=== PATIENT | male | born 1935 | race Caucasian/White ===

== ENCOUNTER 2017-03-18 07:44 | Inpatient (IN) | payer MEDICARE, OTHER ==
[2017-03-18 08:23] LABS: #Monocytes 0.7 thou/uL (0.11-0.59); #Neutrophils 3.1 thou/uL (1.40-6.50); %Eosinophils 0.5 % (0.0-10.0); Hematocrit 30.2 % (42.0-52.0); Red Blood Cell (RBC) Count 3.09 mill/uL (4.70-6.10); White Blood Cell (WBC) Count 5.8 thou/uL (4.8-10.8)
[2017-03-18 08:46] LABS: ALT (SGPT) 12 U/L (8-55); AST (SGOT) 20 U/L (5-34); Alkaline Phosphatase 66 U/L (40-150); Anion Gap 15 mmol/L (10-20); BUN (Urea Nitrogen) 32 mg/dL (8.4-25.7); Bilirubin, Total 0.5 mg/dL (0.2-1.2); CK (CPK) 65 U/L (30-200); Calc. Creatinine Clearance 0 mL/min (70-130); Carbon Dioxide 34 mmol/L (23-31); Chloride 90 mmol/L (98-107); Estimated GFR-MDRD 27; Globulin 3.4 g/dL (2.4-3.5); Protein, Total 7.1 g/dL (5.8-8.1)
[2017-03-18 08:49] LABS: Troponin I 0.041 ng/mL (< 0.028)
--- NOTE | 2017-03-18 09:05 | RAD ---
CHEST 1 VIEW: HISTORY: Dyspnea. Chest pain. COMPARISON: 11/02/16. FINDINGS: Cardiac silhouette is magnified by projection. Pulmonary vasculature is upper limits of normal and accentuated by shallow inspiration. Mediastinum is midline with aortic calcification and a multilea d left subclavian cardiac electronic device. There is no evidence of pneumothorax. media monitor leads overlie the chest. IMPRESSION: 1. Atherosclerosis. 2. Chronic-type findings are stable. POS: SONIA
[2017-03-18 09:32] LABS: Bilirubin Negative (Negative); Blood, Urine Negative (Negative); Glucose, Urine (Dipstick) Negative (Negative); Ketone, Urine 15 mg/dL (Negative); Nitrite Positive (Negative); Protein, Urine (Dipstick) 30 mg/dL (Neg-Trace)
[2017-03-18 09:34] LABS: Bacteria/HPF 2+ HPF (None Seen); Hyaline Casts/LPF 7-10 HYALINE CAST LPF (0-3 Hyaline); Squamous Epithelial None Seen HPF (0-3)
[2017-03-18] MEDS ORDERED: Mag-Al 1200 mg/1200 mg/30 ML UDCUP PO PRN (11:27)
[2017-03-18] MEDS ORDERED: Senokot 8.6 MG TAB PO PRN (11:27)
[2017-03-18] MEDS ORDERED: Dextrose 5% in Water 1,000 ML IV PRN (11:27)
[2017-03-18] MEDS ORDERED: Ondansetron ODT 4 MG TAB PO PRN (11:27)
[2017-03-18] MEDS ORDERED: Dextrose 50% Abboject 50 ML SYRINGE SLOW IVP PRN (11:27)
[2017-03-18] MEDS ORDERED: Sodium Chloride 0.65% Nasal 44 ML BOT EA NARE PRN (11:27)
[2017-03-18] MEDS ORDERED: Acetaminophen 325 MG TAB PO PRN (11:27)
[2017-03-18] MEDS ORDERED: Ondansetron HCl/PF 4 MG/2 ML Vial IVP PRN (11:27)
[2017-03-18] MEDS ORDERED: HumaLOG 300 UNITS/3 ML VIAL SC PRN (11:27)
[2017-03-18] MEDS ORDERED: Loratadine 10 MG TAB PO PRN (11:27)
[2017-03-18] MEDS ORDERED: traZODone HCl 50 MG TAB PO PRN (11:27)
[2017-03-18] MEDS ORDERED: Milk Of Magnesia 30 ML UDCUP PO PRN (11:27)
[2017-03-18] MEDS ORDERED: Nitroglycerin 0.4 MG TAB (25 Tab Bottle) SL PRN (11:27)
[2017-03-18] MEDS ORDERED: Loperamide HCl 2 MG CAP PO PRN (11:27)
[2017-03-18] MEDS ORDERED: Zolpidem Tartrate 5 MG TAB PO PRN (11:27)
[2017-03-18] MEDS ORDERED: Eucerin (Mineral Oil/Petrolatum,White) 30 gm Jar TOP PRN (11:27)
[2017-03-18] MEDS ORDERED: Artificial Tears 18 DROP/0.9 ML EA EYE PRN (11:27)
[2017-03-18] MEDS ORDERED: Diabetic Tussin 200 MG/10 ML UDCUP PO PRN (11:27)
[2017-03-18] MEDS ORDERED: Chloraseptic Spray 180 ml Bottle PO PRN (11:27)
[2017-03-18] MEDS ORDERED: ALPRAZolam 0.5 MG TAB PO PRN (11:27)
[2017-03-18 12:03] LABS: Troponin I 0.035 ng/mL (< 0.028)
--- NOTE | 2017-03-18 12:03 | HP ---
PRIMARY CARE PHYSICIAN: Dr. Moise Estrada. REASON FOR ADMISSION: Acute kidney failure, generalized weakness, urinary tract infection. HISTORY OF PRESENT ILLNESS: An 81-year-old male with a history of hypertension, diabetes type 2, be nign enlargement of prostate, who came to emergency room with his because of generalized weakne ss. He was not feeling good for the last several days. He reports that since stent placed in 10/30 16, he is going downhill. He denies any melena, hematochezia. He reports dysuria and foul smelling urine. He does report increased frequency of urination. This was going on for the last few days. As per the patient's , the patient was also having very poor appetite. He was falling frequent ly. He was feeling dizzy. Today, he came to emergency room with this presentation and he is found with acute kidney failure. His urinalysis was suggestive of urinary tract infection. The patient has received IV Cipro in the emergency room. The patient is being admitted to telemetry floor for close monitoring. REVIEW OF SYSTEMS: The following complete review of systems was negative, unless otherwise mentione d in the HPI or below: Constitutional: Weight loss or gain, ability to conduct usual activities. Skin: Rash, itching. Eyes: Double vision, pain. ENT/Mouth: Nose bleeding, neck stiffness, pain, tenderness. Cardiovascular: Palpitations, dyspnea on exertion, orthopnea. Respiratory: Shortness of breath, wheezing, cough, hemoptysis, fever or night sweats. Gastrointestinal: Poor appetite, abdominal pain, heartburn, nausea, vomiting, constipation, or diar michael. Genitourinary: Urgency, frequency, dysuria, nocturia. Musculoskeletal: Pain, swelling. Neurologic/Psychiatric: Anxiety, depression. Allergy/Immunologic: Skin rash, bleeding tendency. Please see my HPI for pertinent positive and negative. All other review of systems reviewed and neg ative except as mentioned in the HPI. EMERGENCY ROOM COURSE: Patient has received IV fluid 1 liter and Cipro 400 mg. PAST MEDICAL HISTORY: Benign enlargement of prostate, history of aortic valve stenosis required tra nscutaneous aortic valve replacement procedure, coronary artery disease requiring CABG, diabetes typ e 2, hypertension, dyslipidemia, paroxysmal atrial fibrillation. PAST SURGICAL HISTORY: Pacemaker/defibrillator placement, transcutaneous aortic valve replacement, history of colostomy, back surgery, tonsillectomy. PAST PSYCHIATRIC HISTORY: Anxiety and depression. SOCIAL HISTORY: Patient is . He lives at home with his . He is a former smoker. He de nies any alcohol or other illicit drug abuse. FAMILY HISTORY: No strong family history of premature coronary artery disease, stroke or cancer. ALLERGIES: CODEINE SULFATE. CURRENT HOME MEDICATIONS: Plavix 75 mg p.o. daily, Lasix 40 mg p.o. b.i.d., Xanax 0.5 mg p.o. daily , Coreg 3.125 mg twice daily, digoxin 125 mcg p.o. daily, ferrous sulfate 325 mg p.o. twice daily, A maryl 4 mg twice daily, metformin 1 g p.o. daily, Januvia 50 mg daily, Aldactone 12.5 mg twice daily , ranitidine 150 mg twice daily, Ranexa 500 mg 2 tablets twice daily, Flomax 0.4 mg p.o. daily, and trazodone 200 mg p.o. daily. PHYSICAL EXAMINATION: VITAL SIGNS: On arrival, blood pressure 123/76, pulse 87, respiratory rate 19, temperature 98.1, sa turation 97% on room air, weight 83.9 kilograms. GENERAL: Patient is currently weak. No obvious acute distress. HEAD: Normocephalic, atraumatic. EYES: Pupils round and reactive to light. Extraocular muscles intact. ENT: Oropharynx within normal limits. Moist mucous membranes. No oral lesions. No pharyngeal tenisha thema, no exudates. NECK: Supple. Range of motion is normal. No meningeal signs of irritation. LUNGS: Clear to auscultation without any rhonchi or rales. CARDIAC: S1, S2 regular. No murmur, no gallop, no rub. ABDOMEN: Soft, bowel sounds present, nontender, nondistended. No organomegaly, no mass, no suprapu bic tenderness. BACK: Examination unremarkable, no CVA tenderness. EXTREMITIES: Upper extremity passive movements of all joints are normal. Lower extremity, no edema . Good peripheral pulsation. SKIN: No skin rash. HEMATOLOGICAL SYSTEM: No lymphadenopathy. PSYCHIATRIC: Normal affect. NEUROLOGIC: Nonfocal examination. IMAGING AND SIGNIFICANT LABORATORY DATA: 1. EKG based on my review, pacemaker rhythm. Chest x-ray based on my review, chronic changes, no a cute cardiopulmonary process. 2. WBC 5.8, hemoglobin 10.0, platelet 260. BMP: Sodium 135, potassium 4.1, chloride 90, carbon di oxide 34, BUN 32, creatinine 2.32, glucose 91, calcium 11.0. 3. LFT: AST 20, ALT 12, alkaline phosphatase 66, albumin 3.7, CK 65, CK-MB 1.4, troponin I 0.041. BNP 162.0. Urinalysis consistent with urinary tract infection. ASSESSMENT AND PLAN/IMPRESSION: 1. Acute kidney failure. This patient's creatinine today is 2.32. His previous creatinine is 1.07 . Most likely, acute kidney failure is related with prerenal etiology secondary to over diuresis wi th Lasix. At this point, patient will be given gentle IV fluid at 75 mL per hour. We will avoid ne phrotoxic agents and we will repeat basic metabolic panel tomorrow. We are expecting that with IV f luid therapy, his renal function will improve. If renal function does not improve, then we will con pipe and test supervisor nephrology evaluation. 2. Hyponatremia, hypochloremia, and metabolic alkalosis based on the elevated total CK, all explain ed by over diuresis. 3. Elevated troponin. Compared to old records, patient's troponin is coming down. We will do 2 mo re sets of cardiac enzymes to rule out any acute coronary syndrome. 4. Urinary tract infection. We will continue with Rocephin 1 g q.24 hours and Cipro 200 mg IV twic e daily based on renal dose. We will follow up on urine culture result and based on culture result, we will change to oral antibiotic therapy. 5. Diabetes type 2. We will hold on metformin therapy because of kidney failure. We will continue with Amaryl 2 mg p.o. daily and insulin as per sliding scale per protocol. We will watch for any h ypoglycemia. We will also continue Januvia 50 mg p.o. daily. 6. Coronary artery disease with history of stent. We will continue with Plavix 75 mg p.o. daily, C oreg 3.125 mg p.o. twice daily. We will also continue with Ranexa 1 gram p.o. twice daily. 7. Benign enlargement of prostate. We will continue Flomax 0.4 mg p.o. daily and monitor urine out put. We will check for any residual if needed. 8. Anxiety and depression. We will continue Xanax b.i.d. p.r.n. and trazodone 50 mg at bedtime p.r .n. 9. History of abdominal aortic stenosis, status post aortic valve replacement. Currently, problem is stable. We will monitor rhythm on telemetry floor. 10. Anemia, normocytic, normochromic. We will continue ferrous sulfate 325 mg p.o. daily. 11. Deep venous thrombosis prophylaxis, heparin 5000 units subcu twice daily. 12. Gastrointestinal prophylaxis. Pepcid 20 mg p.o. at bedtime. CODE STATUS: The patient is FULL CODE. The patient's is surrogate decision maker. Disposition plan based on clinical course. We are expecting patient's stay in the hospital more oskar n 2 midnights. Plan of care discussed with the patient and the patient's family member at bedside.
[2017-03-18] MEDS: Sodium Chloride 0.9% 1,000 ML IV SCH (12:16)
[2017-03-18] MEDS: Ciprofloxacin Lactate/D5W 200 MG in Premix Bag 1 BAG IVPB SCH (12:17)
[2017-03-18 12:58] VITALS: BMI 28.8
[2017-03-18] MEDS: cefTRIAXone\\ROCEPHIN 1 GM in Sodium Chloride 0.9% 100 ML IVPB SCH (14:12)
[2017-03-18] MEDS: Carvedilol 3.125 MG TAB PO SCH (17:10)
[2017-03-18] MEDS: Heparin 5,000 UNITS/ML VIAL SC SCH (20:36)
[2017-03-18] MEDS ORDERED: FLU VACC TS2017-18 (>65YR) 0.5 ML SYRINGE IM ONE (21:00)
[2017-03-18] MEDS: HumaLOG 300 UNITS/3 ML VIAL SC PRN (21:31)
[2017-03-19] MEDS: Ciprofloxacin Lactate/D5W 200 MG in Premix Bag 1 BAG IVPB SCH (00:09)
[2017-03-19] MEDS: Sodium Chloride 0.9% 1,000 ML IV SCH ×3 (04:58→14:40)
[2017-03-19 05:19] LABS: #Eosinphils 0.1 thou/uL (0.0-0.7); #Lymphocytes 2.2 thou/uL (1.20-3.40); #Monocytes 0.9 thou/uL (0.11-0.59); #Neutrophils 3.6 thou/uL (1.40-6.50); %Basophils 0.3 % (0.0-1.0); %Eosinophils 0.9 % (0.0-10.0); %Lymphocytes 32.7 % (21.0-51.0); %Monocytes 12.8 % (0.0-10.0); Hematocrit 30.7 % (42.0-52.0); Mean Platelet Volume 6.3 fL (7.4-10.4); Red Blood Cell (RBC) Count 3.16 mill/uL (4.70-6.10); White Blood Cell (WBC) Count 6.7 thou/uL (4.8-10.8)
[2017-03-19 05:28] LABS: ALT (SGPT) 16 U/L (8-55); AST (SGOT) 25 U/L (5-34); Alkaline Phosphatase 65 U/L (40-150); Anion Gap 13 mmol/L (10-20); BUN (Urea Nitrogen) 28 mg/dL (8.4-25.7); Bilirubin, Total 0.4 mg/dL (0.2-1.2); Calc. Creatinine Clearance 35 mL/min (70-130); Calcium 10.1 mg/dL (7.8-10.44); Carbon Dioxide 30 mmol/L (23-31); Chloride 93 mmol/L (98-107); Estimated GFR-MDRD 34; Globulin 3.4 g/dL (2.4-3.5); Protein, Total 7.1 g/dL (5.8-8.1)
[2017-03-19 08:18] LABS: Troponin I 0.062 ng/mL (< 0.028)
[2017-03-19] MEDS: Carvedilol 3.125 MG TAB PO SCH ×3 (08:27→20:52)
[2017-03-19] MEDS: Clopidogrel Bisulfate 75 MG TAB PO SCH (08:28)
[2017-03-19] MEDS: Glimepiride 2 MG TAB PO SCH (08:28)
[2017-03-19] MEDS: Digoxin 0.125 MG TAB PO SCH (08:28)
[2017-03-19] MEDS: Ferrous Sulfate 325 MG TAB PO SCH (08:28)
[2017-03-19] MEDS: Alogliptin Benzoate 6.25 MG TABLET PO SCH (08:28)
[2017-03-19] MEDS: Famotidine 20 MG TAB PO SCH (08:29)
[2017-03-19] MEDS: Tamsulosin HCl 0.4 MG CAP PO SCH (08:29)
[2017-03-19] MEDS: Heparin 5,000 UNITS/ML VIAL SC SCH ×2 (08:29→20:52)
[2017-03-19 11:37] LABS: Troponin I 0.054 ng/mL (< 0.028)
[2017-03-19] MEDS: cefTRIAXone\\ROCEPHIN 1 GM in Sodium Chloride 0.9% 100 ML IVPB SCH (12:54)
[2017-03-19] MEDS ORDERED: ALPRAZolam 0.5 MG TAB PO SCH (15:00)
--- NOTE | 2017-03-19 16:50 | ULT ---
BILATERAL RENAL ULTRASOUND: 03/19/17 HISTORY: Renal failure. FINDINGS: The right kidney measures 9.2 cm in length and the left kidney measures 10.6 cm in length. No focal mass or hydronephrosis is seen on either side. There is mild thinning of the right renal co rtex. Cortical echogenicity is otherwise unremarkable. The prevoid bladder volume measures 158 mL. T he urinary bladder grossly unremarkable. IMPRESSION: Mild cortical thinning on the right. POS: MERVIN
[2017-03-19] MEDS ORDERED: Lidocaine 1.5% w/Epi 1:200K 30 ML VIAL (Epid Use) FS SCH (17:30)
--- NOTE | 2017-03-19 19:02 | PDOC.EVN ---
Event Note - Event Note Event Note: PROCEDURE NOTE: Patient given information about the I&D procedure including risks and benefits, all questions answered and patient with understanding. Consent signed. The patient was placed in the right lateral recumbant position and abscess of the L posterior neck exposed. A timeout protocol was performed prior to initiating eth procedure. The area was prepared and draped in the usual, sterile manner. the site was anesthetized with 1.5% lidocaine with epinephrine. A linear incision along the local skin lines was made and the purulent material expressed. The abscess was explored thoroughly and sequestered pockets were opened. Bleeding was minimal. The wound was packed with 1/2" iodoform guaze and dressing was applied.
--- NOTE | 2017-03-19 20:04 | PDOC.PN ---
- Subjective Encounter Start Date: 03/19/17 Encounter Start Time: 12:00 Patient seen and examined. No new complaints. No overnight events. Feels better. - Objective Resuscitation Status: Resuscitation Status FULL:Full Resuscitation MAR Reviewed: Yes Vital Signs & Weight: Vital Signs (12 hours) Temp Pulse Resp BP Pulse Ox 03/19/17 16:26 98.1 F 91 17 125/57 L 98 03/19/17 12:14 97.6 F 87 17 123/58 L 98 03/19/17 08:28 77 03/19/17 08:24 97.9 F 77 16 130/60 95 Weight Admit Weight 184 lb Weight 184 lb 1.6 oz I&O: 03/18/17 03/19/17 03/20/17 06:59 06:59 06:59 Intake Total 1010 1272 Output Total 300 675 Balance 710 597 Result Diagrams: 03/19/17 04:48 03/19/17 04:48 Additional Labs: Accuchecks 03/19/17 03/19/17 03/19/17 16:27 12:15 05:36 POC Glucose 150 H 168 H 152 H 03/18/17 03/18/17 20:01 17:30 POC Glucose 221 H 238 H EKG Reviewed by me: Yes (Tele paced) Phys Exam - Physical Examination Constitutional: NAD Respiratory: no wheezing, no rhonchi Cardiovascular: RRR, no rub Gastrointestinal: soft, non-tender, positive bowel sounds Musculoskeletal: no edema Dx/Plan (1) CLAIRE (acute kidney injury) Code(s): N17.9 - ACUTE KIDNEY FAILURE, UNSPECIFIED Status: Acute (2) UTI (urinary tract infection) Status: Acute (3) Elevated troponin Code(s): R74.8 - ABNORMAL LEVELS OF OTHER SERUM ENZYMES Status: Acute (4) Skin abscess Code(s): L02.91 - CUTANEOUS ABSCESS, UNSPECIFIED Status: Acute Qualifiers: Site of cutaneous abscess: neck Qualified Code(s): L02.11 - Cutaneous abscess of neck (5) PAF (paroxysmal atrial fibrillation) Code(s): I48.0 - PAROXYSMAL ATRIAL FIBRILLATION Status: Chronic (6) DM2 (diabetes mellitus, type 2) Status: Chronic (7) CAD (coronary artery disease) Code(s): I25.10 - ATHSCL HEART DISEASE OF [place] CORONARY ARTERY W/O ANG PCTRS Status: Chronic - Plan cont current plan of care, plan discussed w/ family, DVT proph w/heparin, DVT proph w/SCDs * Renal ultrasound * Add urine culture to ER sample - No cultures sent on admission * AM labs * Cont IVF * Consult Family medicine for I&D of skin abscess * DC Cipro * Cont to monitor Review of Systems - Review of Systems Respiratory: negative: Cough, Dry, Shortness of Breath, Hemoptysis, SOB with Excertion, Pleuritic Pain, Sputum, Wheezing Cardiovascular: Chest Pain (earlier today - resolved). negative: Palpitations, Orthopnea, Paroxysmal Noc. Dyspnea, Edema, Light Headedness, Other Gastrointestinal: negative: Nausea, Vomiting, Abdominal Pain, Diarrhea, Constipation, Melena, Hematochezia, Other - Medications/Allergies Allergies/Adverse Reactions: Allergies Allergy/AdvReac Type Severity Reaction Status Date / Time codeine [Codeine] Allergy Mild Verified 08/25/16 12:45 Medications: Current Medications Acetaminophen (Tylenol) 650 mg PO Q4H PRN PRN Reason: Headache/Fever or Pain Last Admin: 03/19/17 07:17 Dose: 650 mg Al Hydroxide/Mg Hydroxide (Maalox) 30 ml PO Q6H PRN PRN Reason: Heartburn or Indigestion Alogliptin Benzoate (Alogliptin) 6.25 mg PO DAILY [facility] Last Admin: 03/19/17 08:28 Dose: 6.25 mg Alprazolam (Xanax) 0.5 mg PO BID [facility] Amiodarone HCl (Cordarone) 200 mg PO BID [facility] Artificial Tears (Tears Naturale) 0 drop EA EYE PRN PRN PRN Reason: Dry Eyes Carvedilol (Coreg) 3.125 mg PO BID-[facility] Last Admin: 03/19/17 17:50 Dose: 3.125 mg Carvedilol (Coreg) 3.125 mg PO BID [facility] Clopidogrel Bisulfate (Plavix) 75 mg PO DAILY [facility] Last Admin: 03/19/17 08:28 Dose: 75 mg Dextrose/Water (Dextrose 50%) 25 gm SLOW IVP PRN PRN PRN Reason: Hypoglycemia Digoxin (Lanoxin) 0.125 mg PO DAILY [facility] Last Admin: 03/19/17 08:28 Dose: 0.125 mg Famotidine (Pepcid) 20 mg PO DAILY [facility] Last Admin: 03/19/17 08:29 Dose: 20 mg Ferrous Sulfate (Feosol) 325 mg PO [facility] Last Admin: 03/19/17 08:28 Dose: 325 mg Glimepiride (Amaryl) 2 mg PO QA-[facility] Last Admin: 03/19/17 08:28 Dose: 2 mg Glucagon (Glucagon) 1 mg IM PRN PRN PRN Reason: Hypoglycemia Guaifenesin (Robitussin Sf) 200 mg PO Q4H PRN PRN Reason: Cough Heparin Sodium (Porcine) (Heparin) 5,000 units SC BID [facility] Last Admin: 03/19/17 08:29 Dose: 5,000 units Hydralazine HCl (Apresoline) 10 mg SLOW IVP Q4H PRN PRN Reason: Systolic BP > 180 Dextrose/Water (D5w) 1,000 mls @ 0 mls/hr IV .Q0M PRN; As Directed PRN Reason: Hypoglycemia Ceftriaxone Sodium 1 gm/ (Sodium Chloride) 100 mls @ 200 mls/hr IVPB Q24HR [facility] Last Admin: 03/19/17 12:54 Dose: 100 mls Sodium Chloride (Normal Saline 0.9%) 1,000 mls @ 50 mls/hr IV .Q20H [facility] Last Admin: 03/19/17 14:40 Dose: 1,000 mls Insulin Human Lispro (Humalog) 0 units SC .MODERATE SLIDING SC PRN PRN Reason: Moderate Correctional Scale Last Admin: 03/18/17 18:41 Dose: 4 unit Insulin Human Lispro (Humalog) 0 units SC .BEDTIME SLIDING SC PRN PRN Reason: Bedtime Correctional Scale Last Admin: 03/18/17 21:31 Dose: 2 unit Loperamide HCl (Imodium) 2 mg PO PRN PRN PRN Reason: Diarrhea/Loose Stools Loratadine (Claritin) 10 mg PO DAILYPRN PRN PRN Reason: Sinus Symptoms Magnesium Hydroxide (Milk Of Magnesium) 30 ml PO DAILYPRN PRN PRN Reason: Constipation Mineral Oil/White Petrolatum (Eucerin Cream) 0 gm TOP BIDPRN PRN PRN Reason: Dry Skin Nitroglycerin (Nitrostat) 0.4 mg SL Q5MIN PRN PRN Reason: Chest Pain Last Admin: 03/19/17 07:14 Dose: 0.4 mg Ondansetron HCl (Zofran Odt) 4 mg PO Q6H PRN PRN Reason: Nausea/Vomiting Ondansetron HCl (Zofran) 4 mg IVP Q6H PRN PRN Reason: Nausea/Vomiting Phenol (Chloraseptic [place] 180 Ml Bot) 0 ml PO PRN PRN PRN Reason: Sore Throat Ranolazine (Ranexa) 1,000 mg PO BID [facility] Last Admin: 03/19/17 08:29 Dose: 1,000 mg Rosuvastatin Calcium (Crestor) 10 mg PO HS [facility] Senna (Senokot) 2 tab PO HSPRN PRN PRN Reason: Constipation Sodium Chloride ([place] Nasal [place] 0.65%) 0 ml EA NARE QIDPRN PRN PRN Reason: Nasal Congestion Sodium Chloride (Flush - Normal Saline) 10 ml IVF Q12HR [facility] Last Admin: 03/19/17 08:30 Dose: Not Given Sodium Chloride (Flush - Normal Saline) 10 ml IVF PRN PRN PRN Reason: Saline Flush Tamsulosin HCl (Flomax) 0.4 mg PO DAILY [facility] Last Admin: 03/19/17 08:29 Dose: 0.4 mg Tamsulosin HCl (Flomax) 0.4 mg PO HS [facility] Trazodone HCl (Desyrel) 200 mg PO HS [facility]
[2017-03-19] MEDS: ALPRAZolam 0.5 MG TAB PO SCH (20:51)
[2017-03-19] MEDS ORDERED: traZODone HCl 50 MG TAB PO SCH (21:00)
[2017-03-19] MEDS ORDERED: Tamsulosin HCl 0.4 MG CAP PO SCH (21:00)
[2017-03-19] MEDS: HumaLOG 300 UNITS/3 ML VIAL SC PRN (21:03)
--- NOTE | 2017-03-19 22:41 | CON-2 ---
DATE OF CONSULTATION: 03/19/2017 CODE STATUS: FULL. PRIMARY CARE PHYSICIAN: Moise Estrada MD ATTENDING: Cyndi Felipe M.D. RESIDENT: Chi Hernandez MD HISTORIAN: Patient. PRIMARY TEAM: [facility]. REASON FOR CONSULTATION: Requested I and D of neck cyst. HISTORY OF PRESENT ILLNESS: The patient is an 81-year-old male with past medical history of aortic stenosis status post TAVR, hypertension, and diabetes type 2, who presented to the hospital with UTI. [facility] This afternoon, the patient was noted to have a cyst on the back of his neck that was draining purulent material. [facility] and drainage of the cyst of what looks like an inclusion cyst on the back of his neck. This cyst has been present for the last 2-3 months. It was attempted to be popped yesterday, but became more inflamed and tender. It started draining a small amount of pus today, but it was felt he would benefit more from an incision and drainage. The patient has been afebrile. He is currently on antibiotics for urinary tract infection. He has a history of inclusion cysts. PAST MEDICAL HISTORY: 1. Aortic stenosis, status post TAVR. 2. Benign prostatic hypertrophy. 3. Paroxysmal atrial fibrillation. 4. Hypertension. 5. Diabetes mellitus 2. 6. Hyperlipidemia. 7. Coronary artery disease status post CABG procedure. PAST SURGICAL HISTORY: 1. TAVR. 2. Colostomy. 3. Back surgery. 4. Pacer/defibrillator. 5. Tonsillectomy. ALLERGIES: CODEINE. MEDICATIONS: 1. Plavix 75 mg p.o. a day. 2. Lasix 40 mg b.i.d. 3. Xanax 0.5 mg a day. 4. Coreg 3.125 mg b.i.d. 5. Digoxin 125 mcg a day. 6. Ferrous sulfate 325 mg b.i.d. 7. Amaryl 4 mg b.i.d. 8. Metformin 1 gram a day. 9. Januvia 50 mg. 10. Aldactone 12.5 mg b.i.d. 11. Ranitidine 150 mg b.i.d. 12. Ranexa 500 mg 2 tablets b.id. 13. Flomax 0.4 mg. 14. Trazodone 200 mg. FAMILY HISTORY: Noncontributory. SOCIAL HISTORY: The patient is a former smoker. He denies any alcohol or other drug use. REVIEW OF SYSTEMS: General: Denies fever, chills, denies appetite changes. Respiratory: No cough , no shortness of breath. Cardiovascular: No chest pain, no palpitations. Gastrointestinal: No nausea or vomiting, no diarrhea. Genitourinary: Endorses dysuria. Denies discharge. Skin: Endorses lesions, denies itching. PHYSICAL EXAMINATION: VITAL SIGNS: Blood pressure 125/57, pulse 91, respiratory rate 17, T-max 98.1, pulse oximetry 98% on room air. Current weight 83.5 kilograms. GENERAL: Alert, oriented x4. NAD. Well-developed, appropriately interactive. NECK: Supple. No lymphadenopathy. CARDIOVASCULAR: Regular rate and rhythm, no murmur, no gallops. RESPIRATORY: Normal effort, no retractions. Clear to auscultation bilaterally. SKIN: An 1.5 cm epidermoid inclusion cyst with overlying erythema and small drainage from central lesion; tender to palpation. PSYCHIATRIC: Appropriate. LABORATORY: CBC: WBC 6.7, hemoglobin 10.1, hematocrit 30.7, platelets 271. CMP: Sodium 132, potassium 3.6, chloride 93, CO2 of 30, BUN 28, creatinine 1.93 , glucose 134, calcium 10.1, AST 25, ALT 16, total bilirubin 0.4, alkaline phosphatase 65, total protein 7.1, albumin 3.7. IMAGING: Renal ultrasound showed mild cortical thinning on the right. ASSESSMENT AND PLAN: 1. Epidermoid inclusion cyst, plan for bedside incision and drainage. We will check wound culture if drainage appears grossly purulent. The patient is afebrile, will likely be unable to remove the capsule due to acute inflammation. No antibiotics necessary. Patient is on antibiotics for urinary tract infection currently. Plan to re-evaluate wound in AM then sign off if stable. 2. Urinary tract infection. Defer treatment to primary team. 3. Acute kidney infection. Defer to primary team. 4. Paroxysmal atrial fibrillation. Defer to primary team. 5. Diabetes mellitus 2. Defer to primary team. This consultation note and management was discussed with Dr. Felipe. MOHAMUD
[2017-03-20 05:48] LABS: Band 1 % (5-11); Hematocrit 28.6 % (42.0-52.0); Mean Platelet Volume 6.8 fL (7.4-10.4); Neutrophil 68 % (42-75); Red Blood Cell (RBC) Count 2.89 mill/uL (4.70-6.10); White Blood Cell (WBC) Count 4.8 thou/uL (4.8-10.8)
[2017-03-20 05:59] LABS: Anion Gap 10 mmol/L (10-20); BUN (Urea Nitrogen) 18 mg/dL (8.4-25.7); BUN/Creatinine Ratio 12.16; Calc. Creatinine Clearance 47 mL/min (70-130); Calcium 9.4 mg/dL (7.8-10.44); Carbon Dioxide 30 mmol/L (23-31); Chloride 101 mmol/L (98-107); Estimated GFR-MDRD 46; Magnesium 2.3 mg/dL (1.6-2.6); Phosphorus 3.1 mg/dL (2.3-4.7)
[2017-03-20 06:01] LABS: Digoxin 0.88 ng/mL (0.8-2.0)
[2017-03-20] MEDS: Carvedilol 3.125 MG TAB PO SCH ×2 (08:17→08:20)
[2017-03-20] MEDS: Ferrous Sulfate 325 MG TAB PO SCH (08:18)
[2017-03-20] MEDS: Glimepiride 2 MG TAB PO SCH (08:18)
[2017-03-20] MEDS: Alogliptin Benzoate 6.25 MG TABLET PO SCH (08:18)
[2017-03-20] MEDS: ALPRAZolam 0.5 MG TAB PO SCH (08:19)
[2017-03-20] MEDS: Heparin 5,000 UNITS/ML VIAL SC SCH (08:20)
[2017-03-20] MEDS: Digoxin 0.125 MG TAB PO SCH (08:20)
[2017-03-20] MEDS: Clopidogrel Bisulfate 75 MG TAB PO SCH (08:20)
[2017-03-20] MEDS: Famotidine 20 MG TAB PO SCH (08:20)
[2017-03-20] MEDS: Tamsulosin HCl 0.4 MG CAP PO SCH (08:21)
[2017-03-20] MEDS: Sodium Chloride 0.9% 1,000 ML IV SCH (08:27)
--- NOTE | 2017-03-20 11:00 | PDOC.EVN ---
Event Note - Event Note Event Note: Patient doing well this morning. Wound s/p I&D healing well. Will re-pack today. Pt will need close outpatient follow-up to further evaluate wound. <Jessie Oh - Last Filed: 03/20/17 10:59> Attending Addendum - Attending Addendum I personally evaluated the patient and discussed the management with Dr. Oh. I agree with the History, Examination, Assessment and Plan documented above with any addition or exceptions noted below. Wound looks better. Packing has come out with dressing change. When wound was manipulated, some more pus came out, so will clean and repack the wound. He will be discharged today, so will need to follow-up with his PCP for further wound care. <Cyndi Felipe - Last Filed: 03/20/17 14:05>
[2017-03-20 12:17] VITALS: BP 99/55; TEMP 97.5
--- NOTE | 2017-03-20 12:30 | DIS ---
DATE OF ADMISSION: 03/18/2017 DATE OF DISCHARGE: 03/20/2017 DISCHARGE DIAGNOSES: 1. Acute kidney injury on chronic kidney disease stage 2-3, improved. 2. Dehydration secondary to hypovolemia and iatrogenic effects from diuretic use. 3. Urinary tract infection, organism not identified. 4. Generalized weakness secondary to #1 and #2. 5. Polypharmacy. 6. Diabetes mellitus type 2, on oral hypoglycemics. 7. Chronic macrocytic anemia, stable. 8. Coronary artery disease, chronic and stable. 9. Status post transcutaneous aortic valve replacement. 10. Status post incision and drainage of an epidermal inclusion cyst of the neck. CONSULTATION: [facility]. PERTINENT LABORATORY DATA AND X-RAY FINDINGS: Creatinine ranged between 1.48-2.32 with estimated GF R ranging between 27-46, troponin I ranged between 0.035-0.062. BNP 162. CBC showed hemoglobin ran ged between 9.4-10.1. Digoxin level 0.88. Bacterial culture from neck wound dated 03/19/2017 showe d no growth at 12 hours. Portable chest x-ray dated 03/18/2017 showed no acute cardiopulmonary proc ess. HOSPITAL COURSE: Patient was admitted to the telemetry unit after initially presenting with general ized weakness with evidence of urinary tract infection by urinalysis. The patient was placed on Mao ephin 1 gram q.24 hours; however, final urine culture pending at time of this dictation. The naveed t was given gentle IV fluid hydration after associated elevated creatinine above baseline was noted. The patient received gentle IV fluid hydration with overall improvement in creatinine and estimate d GFR by the time of discharge. The patient continued to clinically improve with discontinuation of diuretic therapy, IV hydration and encouragement of free water intake orally. The patient was disc ontinued on multiple medications, renally cleared due to the renal failure with adjustments to Lasix to 40 mg daily after discharge. The patient also underwent evaluation for a small suspected absces s on the left neck; however, bacterial culture of the wound showed no evidence of organisms or bacte rial growth and consistent with an epidermal inclusion cyst. The patient received local wound care after incision and drainage with care instructions given to the family on discharge. Overall, caden gamino remained clinically stable and ready for discharge on 03/20/2015. DISCHARGE MEDICATIONS: 1. Omnicef 300 mg 1 tablet p.o. b.i.d. x5 days. 2. Xanax 0.5 mg p.o. t.i.d. p.r.n. 3. Amiodarone 200 mg p.o. b.i.d. 4. Calcium carbonate 800 mg p.o. b.i.d. 5. Coreg 3.125 mg p.o. b.i.d. 6. Plavix 75 mg 1 tablet p.o. daily. 7. Digoxin 0.125 mg p.o. daily. 8. Feosol 325 mg p.o. b.i.d. 9. Lasix 40 mg p.o. daily, may resume on 03/25/2017. 10. Amaryl 4 mg p.o. b.i.d. 11. Multivitamin 1 tablet p.o. daily. 12. Ranexa 1000 mg p.o. b.i.d. 13. Crestor 10 mg p.o. at bedtime. 14. Aldactone 12.5 mg p.o. b.i.d., may resume on 03/23/2017. 15. Flomax 0.4 mg p.o. daily. 16. Vitamin B complex 1 tablet p.o. daily. 17. Zantac 150 mg p.o. daily. 18. Metformin 1000 mg p.o. daily, may resume on 03/23/2017. 19. Januvia 50 mg 1 tablet p.o. daily. 20. Trazodone 200 mg p.o. at bedtime. FOLLOWUP: The patient may follow up with his primary care provider, Dr. Moise Estrada within 7 days o f discharge. CONDITION ON DISCHARGE: Fair. ACTIVITY: Ad ezequiel. DIET: Heart healthy and ADA. CODE STATUS: FULL. DISPOSITION: Home 03/20/2017. Total time in preparing and coordinating discharge is 32 minutes.
== END 2017-03-20 12:39 | disposition home or self-care (01) | DRG 683 ==
LOC: ERS 07:44 → 2NO 10:29
PROVIDERS: ADMIT Internal Medicine; ATTEND Internal Medicine
PROC: 0H94XZZ Drainage of Neck Skin, External Approach (ICD-10-PCS; principal; 2017-03-20)
DX: N17.9 Acute kidney failure, unspecified (principal); N39.0 Urinary tract infection, site not specified; E87.3 Alkalosis; E11.22 Type 2 diabetes mellitus with diabetic chronic kidney disease; E87.1 Hypo-osmolality and hyponatremia; E87.8 Other disorders of electrolyte and fluid balance, not elsewhere classified; D53.9 Nutritional anemia, unspecified; F32.9 Major depressive disorder, single episode, unspecified; I48.91 Unspecified atrial fibrillation; I35.0 Nonrheumatic aortic (valve) stenosis; N40.0 Benign prostatic hyperplasia without lower urinary tract symptoms; E78.5 Hyperlipidemia, unspecified; I25.10 Atherosclerotic heart disease of native coronary artery without angina pectoris; Z95.1 Presence of aortocoronary bypass graft; L72.0 Epidermal cyst; Z87.891 Personal history of nicotine dependence; F41.9 Anxiety disorder, unspecified; N18.3 Chronic kidney disease, stage 3 (moderate)
CPT/HCPCS: 36415; 36416; 71010; 76770; 80053; 80069; 80162; 81003; 81015; 82553; 83735; 83880; 84484; 85025; 87070; 87077; 87086; 87186; 87205; 90471; 90682; 93005; A4216; G0008; G8978-GP-CJ; G8979-GP-CI; J0696; J0744; J1644; J7050; Q2036

== ENCOUNTER 2017-03-29 13:33 | Inpatient (IN) | payer MEDICARE, OTHER ==
[2017-03-29 14:26] LABS: Bilirubin Negative (Negative); Blood, Urine Negative (Negative); Glucose, Urine (Dipstick) Negative (Negative); Ketone, Urine Negative (Negative); Nitrite Negative (Negative); Protein, Urine (Dipstick) 100 mg/dL (Neg-Trace); Urobilinogen 0.2 mg/dL (0.2-1.0)
[2017-03-29 14:28] LABS: Hyaline Casts/LPF 0-3 HYALINE CAST LPF (0-3 Hyaline); Squamous Epithelial 0-3 HPF (0-3); WBC/HPF 0-3 HPF (0-3)
[2017-03-29 14:46] LABS: Bacteria/HPF 1+ HPF (None Seen); RBC/HPF 0-3 HPF (0-3)
--- NOTE | 2017-03-29 15:12 | RAD ---
PORTABLE AP CHEST: Date: 03-29-17 History: Orthostatic hypotension. Comparison: 03-18-17 FINDINGS: A triple lead left subclavian AICD device remains in place. Cardiac silhouette and pulmonary vascula ture are within normal limits. Minimal prominent interstitial densities at each lung base have impro jayce. Lungs appear clear on today's exam. There has been no other change from prior exam. IMPRESSION: 1. No acute cardiopulmonary process. 2. Atherosclerotic vascular calcifications. POS: [facility]
[2017-03-29 15:45] LABS: #Lymphocytes 1.3 thou/uL (1.20-3.40); #Monocytes 0.6 thou/uL (0.11-0.59); #Neutrophils 4.7 thou/uL (1.40-6.50); %Basophils 0.3 % (0.0-1.0); %Eosinophils 0.3 % (0.0-10.0); %Monocytes 8.3 % (0.0-10.0); Hematocrit 27.8 % (42.0-52.0); Mean Platelet Volume 6.1 fL (7.4-10.4); Red Blood Cell (RBC) Count 2.81 mill/uL (4.70-6.10); White Blood Cell (WBC) Count 6.7 thou/uL (4.8-10.8)
--- NOTE | 2017-03-29 16:06 | CT ---
CT HEAD WITHOUT CONTRAST: Technique: Multiple axial tomograms were obtained through the head without IV enhancement. History: Head injury. Comparison: 05-05-10 FINDINGS: There is cortical atrophy. Moderate chronic ischemic white matter change. No evidence of intracrania l hemorrhage. No evidence of mass. No evidence of acute infarct. IMPRESSION: Cortical atrophy. Moderate to severe chronic ischemic white matter change. POS: [facility]
--- NOTE | 2017-03-29 16:07 | CT ---
CT CERVICAL SPINE: 03/29/17 Multiple axial tomograms obtained through the cervical spine with multiplanar reconstruction. HISTORY: Multiple falls with injury to neck. There are degenerative changes in the cervical spine. Loss of disc space throughout the cervical spi ne. Osteophytes from the cervical vertebrae. Alignment is preserved. No evidence of acute fracture. Posterior spondylitic changes at C3-4 are prominent and there is left foraminal stenosis at C3-4. IMPRESSION: Degenerative changes of cervical spine. No evidence of acute fracture. POS: [facility]
[2017-03-29 16:09] LABS: ALT (SGPT) 12 U/L (8-55); AST (SGOT) 20 U/L (5-34); Alkaline Phosphatase 63 U/L (40-150); Anion Gap 17 mmol/L (10-20); BUN (Urea Nitrogen) 23 mg/dL (8.4-25.7); Bilirubin, Total 0.5 mg/dL (0.2-1.2); CK (CPK) 89 U/L (30-200); Calc. Creatinine Clearance 0 mL/min (70-130); Calcium 10.2 mg/dL (7.8-10.44); Carbon Dioxide 29 mmol/L (23-31); Chloride 92 mmol/L (98-107); Estimated GFR-MDRD 30; Globulin 3.4 g/dL (2.4-3.5); Lipase 28 U/L (8-78)
[2017-03-29 16:13] LABS: Troponin I 0.023 ng/mL (< 0.028)
--- NOTE | 2017-03-29 16:23 | RAD ---
RIGHT TIBIA AND FIBULA: History: Fall with injury to right lower extremity. FINDINGS: Mild degenerative change at the knee. No acute fracture identified. The distal tibia and fibula are not adequately imaged on this study. IMPRESSION: No acute fracture. Distal tibia and fibula are not imaged on the lateral view. POS: [facility]
--- NOTE | 2017-03-29 16:25 | RAD ---
THREE VIEWS RIGHT FOOT: Date: 03-29-17 History: Right foot injury. Multiple falls due to hypotension. FINDINGS: There is a transverse fracture of the medial malleolus with 4 mm separation of the fracture fragment s. There is also an obliquely oriented fracture involving the distal fibula with approximately 3 mm of separation of the fracture fragments. Lisfranc joint appears normally aligned. No additional frac ture or dislocation is seen involving the right foot. Vascular calcifications are seen at the ankle and dorsal to the foot. IMPRESSION: fractures involving the medial and lateral malleoli. POS: [facility]
--- NOTE | 2017-03-29 16:26 | RAD ---
RIGHT KNEE FOUR VIEWS: History: Fall with injury to right lower extremity. FINDINGS: There are mild degenerative changes at the knee. Arterial calcification. No fracture. No joint effus ion. IMPRESSION: No acute osseous abnormality. POS: [facility]
--- NOTE | 2017-03-29 16:28 | RAD ---
FOUR VIEWS LEFT KNEE: Date: 03-29-17 History: Left knee injury after multiple falls. Comparison: 04-12-10 FINDINGS: Bony osteophytes are seen about the knee. No fracture or dislocation is appreciated. Artifact overli es the knee. Vascular calcifications are seen posterior to the knee. IMPRESSION: 1. Minimal osteoarthritis, but no fracture or dislocation is seen involving the left knee. There has been no significant interval change from prior exam. 2. Vascular calcifications posterior to the knee. POS: [facility]
[2017-03-29] MEDS ORDERED: Ondansetron HCl/PF 4 MG/2 ML Vial IVP PRN (19:57)
[2017-03-29] MEDS ORDERED: Ondansetron ODT 4 MG TAB SL PRN (19:57)
[2017-03-29] MEDS ORDERED: Sodium Chloride 0.9% 1,000 ML IV SCH (19:57)
[2017-03-29 20:12] VITALS: BMI 29.9
[2017-03-29] MEDS: Sodium Chloride 0.9% 1,000 ML IV SCH (21:45)
--- NOTE | 2017-03-29 21:56 | PDOC.EVN ---
Event Note - Event Note Event Note: [id number] H&P Dictated 1.Syncope 2. Rt ankle fracture 3. Hypotension 4. CLAIRE + CKD stage 3 5. H/O CAD Plan: see orders
[2017-03-29] MEDS ORDERED: Morphine 2 MG/ML SYRINGE SLOW IVP PRN (21:58)
[2017-03-29] MEDS ORDERED: HYDROcodone/Acetaminophen 5/325 mg Tablet PO PRN (21:58)
--- NOTE | 2017-03-29 22:10 | RAD ---
RIGHT ANKLE THREE VIEWS: 03/29/17 HISTORY: Ankle fracture. FINDINGS/IMPRESSION: There is interval reduction of the medial and lateral malleolar fractures since the foot x-ray of 3: 53 p.m. from the same day. There is mild residual displacement of the lateral malleolus. A cast has been placed. There is widening of the medial tibiotalar space. POS: [facility]
[2017-03-29 23:30] LABS: Troponin I 0.035 ng/mL (< 0.028)
[2017-03-30] MEDS: Levothyroxine Sodium 50 MCG TAB PO SCH (05:53)
[2017-03-30 06:04] LABS: #Eosinphils 0.1 thou/uL (0.0-0.7); #Lymphocytes 1.1 thou/uL (1.20-3.40); #Monocytes 0.8 thou/uL (0.11-0.59); #Neutrophils 3.6 thou/uL (1.40-6.50); %Basophils 0.4 % (0.0-1.0); %Eosinophils 0.9 % (0.0-10.0); %Lymphocytes 19.9 % (21.0-51.0); %Monocytes 13.9 % (0.0-10.0); Hematocrit 24.1 % (42.0-52.0); Mean Platelet Volume 6.3 fL (7.4-10.4); Red Blood Cell (RBC) Count 2.44 mill/uL (4.70-6.10); White Blood Cell (WBC) Count 5.5 thou/uL (4.8-10.8)
--- NOTE | 2017-03-30 06:26 | HP ---
DATE OF ADMISSION: 03/29/2017 CHIEF COMPLAINT: Syncope, fall. HISTORY OF PRESENT ILLNESS: Patient is an 81-year-old male with the past medical history of hypertension, hyperlipidemia, coronary artery disease, history of myocardial infarction with ejection fraction of 45% to 50%, and aortic valve replacement, came to the ER because of the fall. Patient said that he woke up this morning around 2:00, when he tried to walk, he fell down on the ground, he did hit his head and hit his shoulders and neck and then the leg also, he sat down and then he was unable to walk, having severe pain, patient does not know what happened, he could not able to get up, so EMS was called, and EMS brought the patient to the hospital, and upon ER arrival, the patient was found to be hypotensive, so patient was given fluid bolus and admitted to the ICU. Patient denies any chest pain, denies any trouble breathing, denies any dizziness. Patient did complain of some chest pain when he had a fall. Chest pain is substernal, pressure kind of pain, pain improved with the sublingual nitroglycerin given by the Paramedics. Denies any fever, denies any chills, denies any cough, denies sputum production. PAST MEDICAL HISTORY: As per HPI. PAST SURGICAL HISTORY: Pacemaker, angioplasty, aortic valve replacement, stents. SOCIAL HISTORY: Denies smoking, denies alcohol, denies any drugs. FAMILY HISTORY: Positive for heart problems. REVIEW OF SYSTEMS: Constitutional: Denies any fever, denies any chills. Eyes : Denies any vision problems. Ears: Denies any hearing loss. Neck: Denies any neck pain. Cardiovascular System: Positive for chest pain: Respiratory System: Denies any cough, denies any sputum production. Gastrointestinal System: Denies nausea, vomiting. Musculoskeletal: Positive for right ankle pain. Cranial Nerve System: Positive for syncope. Psychiatric System: No anxiety. Integumentary: Denies any rash. All other review of systems are reviewed and are negative. PHYSICAL EXAMINATION: CONSTITUTIONAL/VITAL SIGNS: At the time of H and P performed, blood pressure is 104/48, pulse oximetry 100%, heart rate 90. GENERAL APPEARANCE: The patient appears tired. HEENT: Anterior patent. Hearing normal. INTEGUMENTARY: Positive for ecchymosis seen. NECK: Supple. No JVD. CARDIOVASCULAR: S1 and S2 present. Positive for murmurs. No rubs, no gallops. RESPIRATORY System: No wheezing, no rhonchi. Diminished at the bases. No wheezing, occasional crackles heard. GASTROINTESTINAL: Soft, nontender, no guarding, no organomegaly, no masses felt. MUSCULOSKELETAL: Right leg lower extremity, decreased range of motion. Positive for dressing. CRANIAL NERVE SYSTEM: Awake, follows commands. Speech clear. PSYCHIATRIC: Mood is appropriate at this time. GENITOURINARY: No suprapubic tenderness. tenderness. LABORATORY DATA AND IMAGING: X-rays of the ankle showed positive for lateral and medial malleolus fracture and dislocation. CT of the head, no acute bleed seen. Chest x-ray no obvious infiltrates seen. Labs showed white count of 6.7 , hemoglobin 9.4, platelet count is 250. BMP showed sodium 134, potassium 3.5, chloride 92, CO2 is 29, BUN of 23, creatinine 2.12, baseline creatinine is around 1.5, calcium 10.2, troponin is 0.023, TSH is 73. ASSESSMENT AND PLAN: Patient is an 81-year-old male. 1. Syncope, etiology unclear. Plan to check cardiac enzymes. Plan to consult Cardiology to evaluate the patient. Plan to check carotid ultrasound. 2. Chest pain. Monitor serial cardiac enzymes. We will place the patient on telemetry and we will wait for Cardiology input. 3. Elevated hypothyroidism. Plan to check free T3, free T4. Plan to start patient on Synthroid at 50 mcg p.o. daily. We will monitor TSH level closely. Need to follow up as an outpatient. 4. History of hypertension. Hold blood pressure medications. 5. Acute kidney injury based on creatinine on 1.4, plus chronic kidney disease , stage 3. Plan to start patient on IV fluids, monitor creatinine closely. Repeat BMP in a.m. Acute kidney injury might be due to hypotension. 6. H/O coronary artery disease. Continue home medications. 7. h/o hpl: Continue statin. The case was discussed in detail with the patient. Patient is FULL CODE. MTDD
[2017-03-30] MEDS ORDERED: Dextrose 50% Abboject 50 ML SYRINGE IVP PRN (06:32)
[2017-03-30] MEDS ORDERED: Dextrose 5% in Water 1,000 ML IV PRN (06:32)
[2017-03-30 06:40] LABS: Anion Gap 10 mmol/L (10-20); BUN (Urea Nitrogen) 22 mg/dL (8.4-25.7); Calc. Creatinine Clearance 39 mL/min (70-130); Calcium 9.9 mg/dL (7.8-10.44); Carbon Dioxide 31 mmol/L (23-31); Chloride 97 mmol/L (98-107); Estimated GFR-MDRD 35
[2017-03-30 06:53] LABS: Troponin I 0.057 ng/mL (< 0.028)
--- NOTE | 2017-03-30 07:39 | PDOC.PN ---
- Subjective Encounter Start Date: 03/30/17 Encounter Start Time: 07:37 Mr. Ramsay does not have any complaints. He had some pain in his foot last night, but now it is fine. He denies chest pain or dyspnea. - Objective MAR Reviewed: Yes Vital Signs & Weight: Vital Signs (12 hours) Temp Pulse Resp BP BP Pulse Ox 03/30/17 04:00 98.6 F 82 18 130/56 L 98 03/30/17 02:00 80 18 96/41 L 97 03/30/17 00:00 80 18 96/37 L 97 03/29/17 23:30 98.5 F 80 18 104/41 L 98 03/29/17 20:30 98.1 F 91 20 98 03/29/17 19:51 98.1 F 91 20 107/51 L 100 Weight Weight 193 lb 1.6 oz I&O: 03/29/17 03/30/17 03/31/17 06:59 06:59 06:59 Intake Total 1290 Output Total 575 Balance 715 Result Diagrams: 03/30/17 04:54 03/30/17 04:54 Additional Labs: Accuchecks 03/30/17 03/29/17 05:43 21:12 POC Glucose 251 H 98 Phys Exam - Physical Examination HEENT: PERRLA Respiratory: no wheezing, no rales, no rhonchi, clear to auscultation bilateral Cardiovascular: RRR, no significant murmur Gastrointestinal: soft, non-tender, positive bowel sounds Musculoskeletal: no edema Dx/Plan (1) Fracture of malleolus, right ankle, closed Code(s): S82.891A - OTH FRACTURE OF RIGHT LOWER LEG, INIT FOR CLOS FX Status: Acute (2) CLAIRE (acute kidney injury) Code(s): N17.9 - ACUTE KIDNEY FAILURE, UNSPECIFIED Status: Acute (3) Elevated troponin Code(s): R74.8 - ABNORMAL LEVELS OF OTHER SERUM ENZYMES Status: Acute (4) CAD (coronary artery disease) Code(s): I25.10 - ATHSCL HEART DISEASE OF [place] CORONARY ARTERY W/O ANG PCTRS Status: Chronic (5) DM2 (diabetes mellitus, type 2) Status: Chronic (6) PAF (paroxysmal atrial fibrillation) Code(s): I48.0 - PAROXYSMAL ATRIAL FIBRILLATION Status: Chronic - Plan * Right Malleolus fracture s/p fall. Patient does not remember how he fell. He says every since his aortic valve surgery he has " been going down". * Plan is for Orthopedic evaluation today * Acute kidney injury- likely from pre-renal azotemia- continue IV hydration * Hypotension- suspect from volume depletion- continue hydration * Presyncope- possibly from volume depletion as well ( patient has had elevated troponins in the past )- however will follow-up with Cardiology evalution * DM- continue SSI * PAF- heart rate- AV- paced- stable.
[2017-03-30] MEDS ORDERED: Potassium Chloride 40 MEQ in Sodium Chloride 0.9% 250 ML 250 ML IVPB SCH (07:45)
[2017-03-30] MEDS: Famotidine 20 MG TAB PO SCH (09:07)
[2017-03-30] MEDS: Digoxin 0.125 MG TAB PO SCH (09:07)
[2017-03-30] MEDS: Tamsulosin HCl 0.4 MG CAP PO SCH (09:07)
[2017-03-30] MEDS: Ferrous Sulfate 325 MG TAB PO SCH ×2 (09:08→15:58)
[2017-03-30] MEDS: Clopidogrel Bisulfate 75 MG TAB PO SCH (09:08)
--- NOTE | 2017-03-30 10:26 | CON ---
DATE OF CONSULTATION: 03/29/2017 CHIEF COMPLAINT: Right ankle pain. HISTORY OF PRESENT ILLNESS: Mr. Ramsay is an 81-year-old male who has had several episodes of syncope recently. He had become dizzy and fallen several times. He fell 2 nights ago rolling his ankle. He was unable to ambulate. His pain worsened. He presented to the hospital yesterday for evaluatio n. A bimalleolar ankle fracture was identified. He has been admitted to the hospital for syncope w orkup at this point. He is currently having acceptable pain control. He has been splinted. He is awaiting a Cardiology consult. He does have an extensive cardiac history of angioplasty and aortic valve replacement. He has had previous stents. He denies being on blood thinner currently, but he is unsure of his medications. PAST MEDICAL HISTORY: Cardiac disease including coronary artery disease, history of myocardial infa rction, history of aortic valve replacement, history of hypertension, and hyperlipidemia. PAST SURGICAL HISTORY: Pacemaker, angioplasty, aortic valve replacement, and cardiac stents. SOCIAL HISTORY: The patient denies smoking, alcohol or drug use. FAMILY MEDICAL HISTORY: Positive for coronary artery disease. REVIEW OF SYSTEMS: Positive for right ankle pain, otherwise negative for 10 point review of systems . IMAGING: X-rays of the right ankle demonstrate a displaced bimalleolar ankle fracture with lateral subluxation of the talus. PHYSICAL EXAMINATION: VITAL SIGNS: Temperature is 98.3, pulse 76, respiratory rate 18, oxygen saturation 96%, and blood p ressure is 105/47. GENERAL: He is lying supine, alert, oriented, in no distress. HEENT: Normocephalic, atraumatic. RESPIRATORY: Breathing comfortably. ABDOMEN: Soft, nontender, and nondistended. MUSCULOSKELETAL: The patient's right ankle was splinted. He is able to flex and extend the foot an d ankle. He has 2 second capillary refill and sensation intact in the toes. IMPRESSION: Right unstable bimalleolar ankle fracture in an elderly male, undergoing syncope workup . PLAN: At this point, the patient will need cardiac consult. We will hold off on surgery for the an kle today. Depending on cardiac status, we will plan for open reduction and internal fixation of th e right ankle to be done tomorrow. He should be n.p.o. at midnight tonight. He will have appropria te DVT prophylaxis. Appropriate medical management and optimization for surgery.
[2017-03-30] MEDS: HumaLOG 300 UNITS/3 ML VIAL SC PRN (11:53)
[2017-03-30] MEDS: Sodium Chloride 0.9% 1,000 ML IV SCH (11:54)
--- NOTE | 2017-03-30 12:05 | CON ---
DATE OF CONSULTATION: 03/30/2017 REASON FOR CONSULTATION: The patient is in [facility]. HISTORY: This is an 81-year-old very pleasant gentleman, life-long nonsmoker, who says in October he riggs d a TAVR procedure done in [place] and apparently ever since then he has had multiple problems with w eakness and dizzy spells. Yesterday he was having dizzy spells going to the bathroom, he fell and f ractured his ankle. This morning he is complaining of pain in his right ankle, but denies any chest pain, fever or chills. He says he is currently short of breath because of his cardiac issues. PAST MEDICAL HISTORY: 1. Coronary artery disease. 2. Myocardial infarction. 3. History of pacemaker. 4. History of atrial fibrillation. PAST SURGICAL HISTORY: 1. Gallbladder. 2. Pacemaker. 3. Back surgery. 4. The recently mentioned aortic valve surgery done. He has been in and out of the hospital here multiple times, mainly for syncope. MEDICATIONS FROM HOME: Trazodone, Januvia, metformin, Zantac, vitamin C, Flomax, Aldactone, Crestor , Ranexa, vitamin, glyburide, Lasix, digoxin, Plavix, Coreg, amiodarone. ALLERGIES: None. SOCIAL/FAMILY HISTORY: Unremarkable. PHYSICAL EXAMINATION: GENERAL: Awake, alert, responsive. Denies any shortness of breath at rest. VITAL SIGNS: Pulse is 76, respirations 18, blood pressure 105/47. CHEST: Chest revealed decreased breath sounds without any wheezing. CARDIAC: Normal S1, S2. ABDOMEN: Soft, no masses. Chest x-ray was normal. White count 5,000, H\T\H 8 and 24, platelet count 280, creatinine 1.8, probably slightly higher than his baseline. His TSH was 73, markedly elevated. IMPRESSION: 1. Chronic anemia. 2. Renal failure, slightly worsening. 3. Markedly elevated TSH, suggestive of hyperthyroidism. 4. No cardiac arrhythmia. 5. Recent fall with fracture of right ankle. PLAN: He was started on Synthroid, it should clearly help most of his weakness symptoms. Surgery to contemplate surgery on his ankle tomorrow. Nothing pulmonary-woods to offer at this time. I will follow while in [facility]. Early ambulation.
[2017-03-30 13:04] LABS: Troponin I 0.052 ng/mL (< 0.028)
[2017-03-30 13:36] LABS: PTT 20.1 SEC (22.9-36.1)
--- NOTE | 2017-03-30 13:51 | CON ---
DATE OF CONSULTATION: 03/30/2017 This is an 81-year-old patient. INDICATION FOR CONSULTATION: An 81-year-old patient with a history of coronary artery disease, stat us post biventricular AICD and a history of syncope with a right ankle fracture. We were asked to s ee him for preop clearance for the surgery of his tib-fib fracture. . All of his temperature tib/f ib fracture. This is a very pleasant 81-year-old gentleman who has had a history in the past of coronary artery d isease with a decrease in ejection fraction who has an AICD implant. He says he has undergone angio plasties in the past. His last cardiac catheterization in August of this year showed a left anterior descending artery stenosis apparently of 15%, this perhaps was 50%, this is unclear. It was felt t o be a typographical error. He also had a right coronary stenosis, 40% posterolateral branch is 50% left main was also 20%. After that, he underwent a percutaneous implant of the aortic valve, TAVR in [facility] in 10/2016. Since that time, he said he has not been doing the same. He has not rec overed quite from this procedure, but then yet last evening he got up to go the bathroom, he then fe lt very weak and lightheaded and then apparently had a syncopal episode and 911 was called. He was brought to the emergency room. He tells me he has had other syncopal episodes in the past. I do no t know whether this is due to orthostatic hypotension or to possibly arrhythmias and he will need to have evaluation of his AICD. He also told me he is supposed to have a new generator change out, bu t has not been able to do that due to his being hospitalized for various problems, but this is also something that needs to be replaced and I will need to determine whether or not this is an urgent si tuation or not. He has no other complaints of chest pain. He does say he has chronic shortness of breath and dyspnea on exertion. He also describes the event this morning of just his legs just gave way. He said he has had episodes likely this where he just starts becoming very shaky and wea k and then he falls down and passes out. PAST MEDICAL HISTORY: Significant for coronary artery disease, aortic valve replacement with TAVR. H has had from what he says multiple angioplasties performed, these may just be cardiac catheteriza tions. He has had a pacemaker or AICD implanted. It is unclear exactly whether this is an AICD or BiV defibrillator, but I suspect this most likely is a biventricular defibrillator. He has had a hi story of cataract surgery. He has had supposedly myocardial infarction in the past. He has had a h istory of CVA. He has had the back surgery. He has had a cholecystectomy. He has chronic anemia a nd chronic kidney disease. Actually on review, please note, on review of the chest x-ray, it appear s that he does have a defibrillator and not a straightforward pacemaker, this does appear to be a de fibrillator based on evaluation of the leads. SOCIAL HISTORY: He lives with his . [place] He has no alcohol use. He sto pped smoking in 1983. He has no illicit drug use. FAMILY HISTORY: Noncontributory at this time, but does have some history of heart disease in the [facility]. REVIEW OF SYSTEMS: A 12 point review of systems, mainly he just complained of the lightheadedness, weakness at times and shortness of breath with dyspnea on exertion. He denies any chest pain. He d oes have some left lower extremity edema. He says otherwise, 12 point review of systems unremarkabl e. MEDICATIONS PRIOR TO ADMISSION: Included Xanax, Flomax, Ranexa, Januvia, Amaryl, Lanoxin, Crestor, Coreg, Feosol, trazodone, calcium, vitamin B complex, multivitamins, Plavix, Zantac, amiodarone, Ald actone, metformin, and Lasix. ALLERGIES: He has allergies to CODEINE with a rash. PHYSICAL EXAMINATION: GENERAL: Reveals an elderly gentleman who is in no acute distress at this time. He is alert and or iented. VITAL SIGNS: Blood pressure is 130/50 and then decreased down to 105/47 this morning. He is afebri le. Heart rate 82. He has 100% pacing AMD and appears to be biventricular pacing as well as atrial pacing. His respiratory rate 20, O2 saturations 98%. HEENT: Shows the head to be normocephalic and atraumatic. He has a very soft carotid bruits, this may be radiation from the aortic area. CHEST: Clear to auscultation without rales, rhonchi or wheezing. CARDIOVASCULAR: Exam reveals a regular rate and rhythm. He does have a very soft systolic murmur i n the aortic area which most likely is just due to flow across the new valve, but most likely does n ot indicate significant stenosis. It does not appear to be a harsh murmur. There is no other signi ficant murmurs noted. ABDOMEN: Soft and nontender with positive bowel sounds. He has obesity, somewhat tympanic, but no masses or tenderness are noted. Femoral pulses are present. EXTREMITIES: Showed no clubbing or cyanosis. I did not elicit any edema. The right lower extremit y is in an immobilizer wrapping. The left pedal pulse was normal, both popliteal pulses are normal. NEUROLOGIC: The patient appears to be relatively normal at this time. He was unable to get out of bed to do any type of further evaluation. His EKG shows 100% pacing. LABORATORY DATA: Shows WBC of 5.5, hemoglobin is 8 with hematocrit of 24.1. He has had problems wi th anemia in the past, platelet count was 208. His potassium is 3.1, creatinine is 1.85 with a BUN of 22, blood sugar was 225. His troponin I earlier was 0.035, increased up to 0.057, on admission i t was 0.023. The MB was 1.9. His BNP was 149. His TSH is elevated at 73. He is taking thyroid me dications, but I did not see that that was listed on his home medications. This may a starting of a new medication since he has been in the hospital. I did not see any indication that he has been on medications in the past. IMPRESSION: 1. Syncopal episode, which may be due to orthostatic hypotension or arrhythmias. He has suffered a right ankle fracture and needs to undergo surgical correction. He has had history apparently of sy ncope in the past, I do not have any recent confirmation of his AICD interrogation, will obtain this today prior to proceeding with any recommendations for surgery. 2. History of coronary artery disease. He has calcified vessels according to the reports, but no f low limiting disease was noted. I did not see where he has had angioplasties performed, but this ma y have been also done in the past. I do not see that indicated. 3. History of aortic valve stenosis. He recently underwent a TAVR and apparently seems to be doing quite well. We could also obtain an echocardiogram if this has not been ordered to determine the v alve remains stable, but it does appear that is the case as I do not hear any evidence of significan t stenosis or any regurgitation and I would imagine that the valve is doing quite well. 4. Elevated TSH, which may indicate that the patient has significant hypothyroidism. This will be dealt with by the primary care service. 5. Hypertension. Blood pressure is under good control at this time. 6. Chronic kidney disease. He appears to be pretty much at his baseline, on admission his creatini ne was 2.12 and this has already decreased down to 1.85 with some IV supplements. 7. History of occasional chest discomfort. He denied any chest pain to me, but occasionally says h e has had some discomfort and according to the records, he did have chest pain while he was en route to the hospital and this pain was decreased by giving nitroglycerin. He did have a cardiac cathete rization just prior to undergoing his TAVR, it did not show any flow-limiting disease and the left m ain was 20% stenosed, but this would not be critical at this time. We will interrogate his AICD and will also ask for an echocardiogram to determine if there are any structural abnormalities otherwis e and for evaluation of left ventricular systolic function.
[2017-03-30] MEDS: traMADol HCl 50 MG TAB PO PRN (15:57)
[2017-03-30] MEDS: Glimepiride 4 MG TAB PO SCH (15:58)
[2017-03-30] MEDS ORDERED: Fentanyl 100 MCG/2 ML VIAL SLOW IVP PRN (20:40)
[2017-03-30] MEDS: traZODone HCl 50 MG TAB PO SCH (20:48)
[2017-03-30] MEDS: Carvedilol 3.125 MG TAB PO SCH (20:48)
[2017-03-31] MEDS: Sodium Chloride 0.9% 1,000 ML IV SCH ×2 (02:11→17:48)
[2017-03-31] MEDS: traMADol HCl 50 MG TAB PO PRN ×2 (03:36→20:47)
[2017-03-31 05:15] LABS: Anion Gap 10 mmol/L (10-20); BUN (Urea Nitrogen) 14 mg/dL (8.4-25.7); Calc. Creatinine Clearance 53 mL/min (70-130); Calcium 9.1 mg/dL (7.8-10.44); Carbon Dioxide 27 mmol/L (23-31); Chloride 104 mmol/L (98-107); Estimated GFR-MDRD 51
[2017-03-31] MEDS: Levothyroxine Sodium 50 MCG TAB PO SCH (06:11)
[2017-03-31] MEDS: Glimepiride 4 MG TAB PO SCH ×2 (08:20→16:30)
[2017-03-31] MEDS: Ferrous Sulfate 325 MG TAB PO SCH ×2 (08:21→17:49)
[2017-03-31] MEDS: Alogliptin Benzoate 25 MG TABLET PO SCH (08:21)
[2017-03-31] MEDS: Clopidogrel Bisulfate 75 MG TAB PO SCH (08:21)
[2017-03-31] MEDS: Carvedilol 3.125 MG TAB PO SCH ×2 (08:48→20:38)
[2017-03-31] MEDS: Digoxin 0.125 MG TAB PO SCH (08:48)
[2017-03-31] MEDS ORDERED: CEFAZOLIN/Water 2 GM/20 ML SYRINGE SLOW IVP SCH (09:15)
--- NOTE | 2017-03-31 09:46 | PRG ---
DATE OF SERVICE: 03/31/2017 SUBJECTIVE: Mr. Ramsay is doing fine today, no chest pain. He is not short of breath. PHYSICAL EXAMINATION: VITAL SIGNS: Blood pressure 110 systolic. LUNGS: Clear. CARDIAC: Normal S1, normal S2. ABDOMEN: Soft, nontender. EXTREMITIES: There is no edema. ASSESSMENT: 1. Congestive heart failure, stable. 2. Previous biventricular pacemaker defibrillator. Doing well. Okay to proceed to surgery today, the patient looks stable.
--- NOTE | 2017-03-31 11:36 | PDOC.PN ---
- Subjective Encounter Start Date: 03/31/17 Encounter Start Time: 11:34 Patient seen at bedside. No overnight events. Still has pain in his right foot. - Objective MAR Reviewed: Yes Vital Signs & Weight: Vital Signs (12 hours) Temp Pulse Resp BP BP Pulse Ox 03/31/17 11:00 97.8 F 90 20 121/65 95 03/31/17 08:48 89 03/31/17 07:02 97.4 F L 89 20 127/67 95 03/31/17 04:00 97.8 F 81 18 119/53 L 100 03/31/17 00:00 98.4 F 89 20 117/45 L 98 Weight Weight 195 lb 6.4 oz I&O: 03/30/17 03/31/17 04/01/17 06:59 06:59 06:59 Intake Total 1290 2720 Output Total 575 3750 Balance 715 -1030 Result Diagrams: 03/30/17 04:54 03/31/17 04:18 Additional Labs: Accuchecks 03/31/17 03/31/17 03/30/17 11:00 05:50 20:32 POC Glucose 172 H 207 H 175 H 03/30/17 16:36 POC Glucose 126 H Phys Exam - Physical Examination Constitutional: NAD HEENT: moist MMs Neck: no JVD Respiratory: clear to auscultation bilateral Cardiovascular: RRR Gastrointestinal: soft Musculoskeletal: pulses present Neurological: moves all 4 limbs Psychiatric: A&O x 3 Dx/Plan (1) Fracture of malleolus, right ankle, closed Code(s): S82.891A - OTH FRACTURE OF RIGHT LOWER LEG, INIT FOR CLOS FX Status: Acute Qualifiers: Encounter type: subsequent encounter (2) CLAIRE (acute kidney injury) Code(s): N17.9 - ACUTE KIDNEY FAILURE, UNSPECIFIED Status: Resolved (3) Elevated troponin Code(s): R74.8 - ABNORMAL LEVELS OF OTHER SERUM ENZYMES Status: Chronic (4) DM2 (diabetes mellitus, type 2) Status: Chronic (5) PAF (paroxysmal atrial fibrillation) Code(s): I48.0 - PAROXYSMAL ATRIAL FIBRILLATION Status: Chronic - Plan cont current plan of care, plan discussed w/ family, continue antibiotics, DVT proph w/SCDs * Appreciate cardiology input. Cleared for surgery * For ORIF of Right Ankle * Continue with amiodarone and coreg * Plavix held * IV Fluids * To OR today.
[2017-03-31] MEDS: Famotidine 20 MG TAB PO SCH (12:41)
--- NOTE | 2017-03-31 14:09 | PRG ---
DATE OF SERVICE: 03/31/2017 SUBJECTIVE: Kevin Ramsay this morning has pain and shortness of breath. OBJECTIVE: VITAL SIGNS: His saturations are 90% on room air, blood pressure 119/53, temperature 97. CHEST: Reveals no wheezing or crackles. CARDIAC: Normal S1 and S2. No gallops. ABDOMEN: Soft. LABORATORY DATA: His creatinine 1.3. ASSESSMENT: 1. Status post multiple episodes of syncope. 2. Fractured left ankle, surgery today with severely hyperthyroid. PLAN: He started on low dose Synthroid. I would consider increasing the Synthroid to 100 mcg. Aggressive PT and supportive care. We will follow while in the IMCU.
[2017-03-31] MEDS ORDERED: Morphine 10 MG/ML VIAL ONE (14:21)
[2017-03-31] MEDS ORDERED: Fentanyl 100 MCG/2 ML VIAL ONE ×3 (14:21→16:59)
[2017-03-31] MEDS ORDERED: CEFAZOLIN/Water 2 GM/20 ML SYRINGE ONE (14:25)
[2017-03-31] MEDS ORDERED: Midazolam HCl 2 mg/2 ml Vial ONE (14:32)
[2017-03-31] MEDS ORDERED: Fentanyl 100 MCG/2 ML VIAL SLOW IVP PRN (15:29)
[2017-03-31] MEDS ORDERED: Ondansetron HCl/PF 4 MG/2 ML Vial IVP PRN (15:30)
[2017-03-31] MEDS ORDERED: traMADol HCl 50 MG TAB PO PRN (15:30)
[2017-03-31] MEDS ORDERED: Propofol 200 MG/20 ML VIAL ONE (15:30)
[2017-03-31] MEDS ORDERED: Promethazine HCl 25 MG/ML VIAL IM PRN (15:30)
[2017-03-31] MEDS ORDERED: Ondansetron HCl/PF 4 MG/2 ML Vial ONE (15:30)
[2017-03-31] MEDS ORDERED: Lidocaine 1% PF 5 ML VIAL ONE (15:30)
[2017-03-31] MEDS ORDERED: Ketorolac Tromethamine 30 MG/ML VIAL IVP PRN (15:30)
[2017-03-31] MEDS ORDERED: PHENYLEPHRINE-NS 100 MCG/ML 10 ML SYRINGE ONE (15:30)
[2017-03-31] MEDS ORDERED: Zolpidem Tartrate 5 MG TAB PO PRN (15:30)
[2017-03-31] MEDS ORDERED: HYDROcodone/Acetaminophen 5/325 mg Tablet PO PRN ×2 (15:30)
[2017-03-31] MEDS: Tamsulosin HCl 0.4 MG CAP PO SCH (18:03)
[2017-03-31] MEDS: traZODone HCl 50 MG TAB PO SCH (20:38)
--- NOTE | 2017-03-31 20:46 | OP ---
PROCEDURE: Open reduction and internal fixation of right bimalleolar ankle fracture. PREOPERATIVE DIAGNOSIS: Right bimalleolar ankle fracture. POSTOPERATIVE DIAGNOSIS: Right bimalleolar ankle fracture. COMPLICATIONS: None. ESTIMATED BLOOD LOSS: 150 mL SURGEON: José Luis Beal M.D. TOBACCO WETTER: Marcelo Cardona PA-C. ANESTHESIA: General plus regional. INDICATIONS: Mr. Ramsay is an 81-year-old male who has fractured his ankle. He has been indicated fo r open reduction and internal fixation of the right bimalleolar ankle fracture to restore alignment and promote healing. Risks have been reviewed in detail. He has elected to proceed with the operat ion. DESCRIPTION OF PROCEDURE: Mr. Ramsay was identified in the preoperative holding area. His correct ex tremity was marked. He was carried to the operating room and positioned supine. General anesthesia was induced. A multidisciplinary timeout was performed. The right foot was prepped and draped in sterile fashion. We began the procedure with a lateral incision. We made an approach to the distal fibula. We examined the fibular fracture and evacuated hematoma. We then reduced the fracture darlene k into its anatomic position. At this point, we applied a 6-hole 1/3 tubular plate along the latera l cortex. Six screws were placed appropriately using x-ray to check the length and position. At th is point, a medial incision was made. We dissected down to the subcutaneous tissue to the medial ma lleolar fracture fragment. At this point, this was reduced as well. We held this with a K-wire. W e then placed a 4.0 mm cancellous screw, holding the small medial malleolar fracture fragment. We t horoughly irrigated with copious lavage. We then closed with 0 Vicryl suture, 2-0 Vicryl suture and nylon for the skin. A sterile dressing was applied. The patient was taken to the recovery room in good condition without complication. IMPLANTS: Synthes 1/3 tubular plate and small fragment screws were used.
[2017-03-31] MEDS: CEFAZOLIN/Water 2 GM/20 ML SYRINGE SLOW IVP SCH (21:02)
[2017-04-01] MEDS: Sodium Chloride 0.9% 1,000 ML IV SCH ×2 (03:24→13:39)
[2017-04-01] MEDS: CEFAZOLIN/Water 2 GM/20 ML SYRINGE SLOW IVP SCH (05:18)
[2017-04-01] MEDS: Levothyroxine Sodium 50 MCG TAB PO SCH (05:18)
[2017-04-01] MEDS: Glimepiride 4 MG TAB PO SCH ×2 (06:15→16:56)
[2017-04-01] MEDS: Digoxin 0.125 MG TAB PO SCH (08:27)
[2017-04-01] MEDS: Ferrous Sulfate 325 MG TAB PO SCH ×2 (08:27→16:56)
[2017-04-01] MEDS: Famotidine 20 MG TAB PO SCH (08:28)
[2017-04-01] MEDS: Alogliptin Benzoate 25 MG TABLET PO SCH (08:28)
[2017-04-01] MEDS: Carvedilol 3.125 MG TAB PO SCH ×2 (08:28→19:28)
--- NOTE | 2017-04-01 11:03 | PDOC.PN ---
- Subjective Encounter Start Date: 04/01/17 Encounter Start Time: 07:40 -: old records requested/rev pt decided to go home with home health on discharge, pain controlled - Objective MAR Reviewed: Yes Vital Signs & Weight: Vital Signs (12 hours) Temp Pulse Resp BP BP Pulse Ox 04/01/17 08:27 89 04/01/17 07:40 97.9 F 82 16 116/60 98 04/01/17 05:00 97.5 F L 91 20 136/63 95 04/01/17 04:00 97.5 F L 81 19 130/70 99 04/01/17 00:00 97.0 F L 84 19 144/68 H 98 Weight Weight 220 lb I&O: 03/31/17 04/01/17 04/02/17 06:59 06:59 06:59 Intake Total 2720 1050 Output Total 3750 1300 Balance -1030 -250 Result Diagrams: 03/30/17 04:54 03/31/17 04:18 Additional Labs: Accuchecks 04/01/17 03/31/17 03/31/17 06:14 23:22 17:56 POC Glucose 160 H 149 H 131 H 03/31/17 11:00 POC Glucose 172 H Phys Exam - Physical Examination Constitutional: NAD HEENT: PERRLA, moist MMs, sclera anicteric Neck: no JVD, supple Respiratory: no wheezing, no rales, no rhonchi Cardiovascular: RRR, no significant murmur, no rub Gastrointestinal: soft, non-tender, no distention, positive bowel sounds right ankle with dressing Neurological: non-focal, normal sensation, moves all 4 limbs Lymphatic: no nodes Psychiatric: normal affect, A&O x 3 Skin: no rash, normal turgor Dx/Plan (1) Fracture of malleolus, right ankle, closed Code(s): S82.891A - OTH FRACTURE OF RIGHT LOWER LEG, INIT FOR CLOS FX Status: Acute Qualifiers: Encounter type: subsequent encounter (2) CAD (coronary artery disease) Code(s): I25.10 - ATHSCL HEART DISEASE OF [place] CORONARY ARTERY W/O ANG PCTRS Status: Chronic (3) DM2 (diabetes mellitus, type 2) Status: Chronic (4) GERD (gastroesophageal reflux disease) Code(s): K21.9 - GASTRO-ESOPHAGEAL REFLUX DISEASE WITHOUT ESOPHAGITIS Status: Chronic (5) Hypertension Code(s): I10 - ESSENTIAL (PRIMARY) HYPERTENSION Status: Chronic (6) Obesity (BMI 30.0-34.9) Code(s): E66.9 - OBESITY, UNSPECIFIED Status: Chronic (7) PAF (paroxysmal atrial fibrillation) Code(s): I48.0 - PAROXYSMAL ATRIAL FIBRILLATION Status: Chronic - Plan cont current plan of care, plan discussed w/ family, PT/OT, social media campaign manager * rehab option is better but pt wants to go home with HH * pain controlled * medical problems are stable * wean off oxygen if not needed * medication reviewed as below * symptomatic treatment * discharge per primary team. Review of Systems - Review of Systems ENT: negative: Ear Pain, Ear Discharge, Nose Pain, Nose Discharge, Nose Congestion, Mouth Pain, Mouth Swelling, Throat Pain, Throat Swelling, Other Respiratory: negative: Cough, Dry, Shortness of Breath, Hemoptysis, SOB with Excertion, Pleuritic Pain, Sputum, Wheezing Cardiovascular: negative: Chest Pain, Palpitations, Orthopnea, Paroxysmal Noc. Dyspnea, Edema, Light Headedness, Other Gastrointestinal: negative: Nausea, Vomiting, Abdominal Pain, Diarrhea, Constipation, Melena, Hematochezia, Other Genitourinary: negative: Dysuria, Frequency, Incontinence, Hematuria, Retention , Other Musculoskeletal: Leg Pain. negative: Neck Pain, Shoulder Pain, Arm Pain, Back Pain, Hand Pain, Foot Pain, Other - Medications/Allergies Allergies/Adverse Reactions: Allergies Allergy/AdvReac Type Severity Reaction Status Date / Time codeine [Codeine] Allergy Mild Verified 08/25/16 12:45 Medications: Current Medications Hydrocodone Bitart/Acetaminophen ([place] 5/325) 1 tab PO Q4H PRN PRN Reason: Mild Pain (1-3) Hydrocodone Bitart/Acetaminophen ([place] 5/325) 2 tab PO Q4H PRN PRN Reason: For Moderate Pain 4-6 Alogliptin Benzoate (Alogliptin) 12.5 mg PO DAILY [facility] Last Admin: 04/01/17 08:28 Dose: 12.5 mg Alprazolam (Xanax) 0.5 mg PO TID PRN PRN Reason: Anxiety Amiodarone HCl (Cordarone) 200 mg PO DAILY [facility] Last Admin: 04/01/17 09:05 Dose: Not Given Carvedilol (Coreg) 3.125 mg PO BID [facility] Last Admin: 04/01/17 08:28 Dose: 3.125 mg Dextrose/Water (Dextrose 50%) 25 gm IVP PRN PRN PRN Reason: HYPOGLYCEMIA PROTOCOL Digoxin (Lanoxin) 0.125 mg PO DAILY [facility] Last Admin: 04/01/17 08:27 Dose: 0.125 mg Famotidine (Pepcid) 20 mg PO DAILY [facility] Last Admin: 04/01/17 08:28 Dose: 20 mg Fentanyl (Sublimaze) 12.5 mcg SLOW IVP Q8H PRN PRN Reason: .SEVERE PAIN Last Admin: 03/30/17 22:49 Dose: 12.5 mcg Fentanyl (Sublimaze) 50 mcg SLOW IVP Q1H PRN PRN Reason: .BREAKTHROUGH PAIN Ferrous Sulfate (Feosol) 325 mg PO BID-[facility] Last Admin: 04/01/17 08:27 Dose: 325 mg Glimepiride (Amaryl) 4 mg PO BID-[facility] Last Admin: 04/01/17 06:15 Dose: 4 mg Glucagon (Glucagon) 1 mg IM PRN PRN PRN Reason: HYPOGLYCEMIA PROTOCOL Sodium Chloride (Normal Saline 0.9%) 1,000 mls @ 75 mls/hr IV .[id number] [facility] Last Admin: 04/01/17 03:24 Dose: Not Given Dextrose/Water (D5w) 1,000 mls @ 0 mls/hr IV INF PRN; As Directed PRN Reason: HYPOGLYCEMIA PROTOCOL Ropivacaine 250 ml/ Device 250 mls @ 8 mls/hr NERVE BLCK INF [facility] Insulin Human Lispro (Humalog) 0 units SC .MILD SLIDING SCALE PRN; Protocol PRN Reason: MILD SLIDING SCALE Last Admin: 03/30/17 11:53 Dose: 4 unit Ketorolac Tromethamine (Toradol) 15 mg IVP Q6H PRN PRN Reason: Moderate Pain (4-6) Stop: 04/03/17 15:31 Levothyroxine Sodium (Synthroid) 50 mcg PO 0600 [facility] Last Admin: 04/01/17 05:18 Dose: 50 mcg Ondansetron HCl (Zofran) 4 mg IVP Q6H PRN PRN Reason: Nausea/Vomiting Promethazine HCl (Phenergan) 12.5 mg IM Q4H PRN PRN Reason: Nausea Ranolazine (Ranexa) 1,000 mg PO BID [facility] Last Admin: 04/01/17 08:27 Dose: 1,000 mg Rosuvastatin Calcium (Crestor) 10 mg PO HS [facility] Last Admin: 03/31/17 20:38 Dose: 10 mg Sodium Chloride (Flush - Normal Saline) 10 ml IVF Q12HR [facility] Last Admin: 04/01/17 09:05 Dose: Not Given Sodium Chloride (Flush - Normal Saline) 10 ml IVF PRN PRN PRN Reason: Saline Flush Tramadol HCl (Ultram) 50 mg PO Q6H PRN PRN Reason: Mild Pain (1-3) Tramadol HCl (Ultram) 100 mg PO Q6H PRN PRN Reason: Moderate Pain 4-6 Trazodone HCl (Desyrel) 200 mg PO [facility] Last Admin: 03/31/17 20:38 Dose: 200 mg Zolpidem Tartrate (Ambien) 5 mg PO HSPRN PRN PRN Reason: Insomnia
[2017-04-01] MEDS: HumaLOG 300 UNITS/3 ML VIAL SC PRN ×2 (12:00→16:57)
--- NOTE | 2017-04-01 13:45 | PQF ---
DATE: 04-01-17 ATTN: DR. WANG ESTEVES Please exercise your independent, professional judgment in responding to the clarification form. Clinical indicators are provided on the bottom of this form for your review Please check appropriate box(s): Syncope Due to: [ ] Dehydration [ x ] Hypotension [ ] Cardiac Arrhythmia ( ) [ ] Other diagnosis [ ] Unable to determine In addition, please specify: Present on Admission (POA): [x ] Yes [ ] No [ ] Unable to determine For continuity of documentation, please document condition throughout progress notes and discharge summary. Thank You. CLINICAL INDICATORS - SIGNS / SYMPTOMS / LABS ER DX: TRANSIENT HYPOTENSION, CLAIRE, FALL, R ANKLE FRACTURE, SYNCOPE H&P: SYNCOPE, ETIOLOGY UNCLEAR CARDIOLOGY CONSULT DR. BAKER 03-30-17: SYNCOPAL EPISODE, WHICH MAY BE DUE TO ORTHOSTATIC HYPOTENSION OR ARRHYTHMIAS PN DR. ESTEVES 04-01-17: CAD, PAROXYSMAL A FIB, CHRONIC HTN RISK FACTORS: DR. BAKER 03-30-17: SIGNIFICANT CAD, TAVR, HE HAS HAD OTHER SYNCOPAL EPISODES IN THE PAST TREATMENTS: CARDIOLOGY CONSULT IVF ( 03-29-17) (This form is maintained as a part of the permanent medical record) 2014 [employer]. All Rights Reserved PATTY [email or web address] Office: [phone] [facility] CENTERDiann
--- NOTE | 2017-04-01 14:02 | PRG ---
DATE OF SERVICE: 04/01/2017 SUBJECTIVE: Kevin Ramsay is seen today. He is doing well postop surgery. OBJECTIVE: VITAL SIGNS: Blood pressure 110/60, sats 98%, no shortness of breath. CHEST: Decreased breath sounds, no wheezing. CARDIAC: Normal S1, S2. No gallops. ABDOMEN: Soft, no masses. IMPRESSION: 1. Status post multiple episodes of syncope. 2. Status post transcatheter aortic valve replacement, severe deconditioning. PLAN: Pulmonary has nothing to offer. Please call as needed. Continue aggressive PT and supportiv e care.
[2017-04-01] MEDS: traZODone HCl 50 MG TAB PO SCH (19:28)
[2017-04-02] MEDS: Ropivacaine HCl/PF 250 ML in Premix Bag 1 BAG NERVE BLCK SCH (05:46)
[2017-04-02] MEDS: Levothyroxine Sodium 50 MCG TAB PO SCH (05:46)
[2017-04-02] MEDS: Sodium Chloride 0.9% 1,000 ML IV SCH (05:46)
[2017-04-02] MEDS: HumaLOG 300 UNITS/3 ML VIAL SC PRN (06:30)
[2017-04-02] MEDS ORDERED: Loperamide HCl 2 MG CAP PO PRN (07:31)
[2017-04-02] MEDS ORDERED: Eucerin (Mineral Oil/Petrolatum,White) 30 gm Jar TOP PRN (07:31)
[2017-04-02] MEDS ORDERED: Loratadine 10 MG TAB PO PRN (07:31)
[2017-04-02] MEDS ORDERED: Diabetic Tussin 200 MG/10 ML UDCUP PO PRN (07:31)
[2017-04-02] MEDS ORDERED: Milk Of Magnesia 30 ML UDCUP PO PRN (07:31)
[2017-04-02] MEDS ORDERED: Acetaminophen 325 MG TAB PO PRN (07:31)
[2017-04-02] MEDS ORDERED: Ondansetron ODT 4 MG TAB PO PRN (07:31)
[2017-04-02] MEDS ORDERED: hydrALAZINE 20 MG/ML VIAL SLOW IVP PRN (07:31)
[2017-04-02] MEDS ORDERED: Mag-Al 1200 mg/1200 mg/30 ML UDCUP PO PRN (07:31)
[2017-04-02] MEDS ORDERED: Sodium Chloride 0.65% Nasal 44 ML BOT EA NARE PRN (07:31)
[2017-04-02] MEDS ORDERED: Artificial Tears 18 DROP/0.9 ML EA EYE PRN (07:31)
[2017-04-02] MEDS: metFORMIN 500 MG TAB PO SCH (08:18)
[2017-04-02] MEDS: Alogliptin Benzoate 25 MG TABLET PO SCH (08:19)
[2017-04-02] MEDS: Glimepiride 4 MG TAB PO SCH ×2 (08:19→17:39)
[2017-04-02] MEDS: Carvedilol 3.125 MG TAB PO SCH ×2 (08:20→19:51)
[2017-04-02] MEDS: Famotidine 20 MG TAB PO SCH (08:20)
[2017-04-02] MEDS: Digoxin 0.125 MG TAB PO SCH (08:21)
[2017-04-02] MEDS: Ferrous Sulfate 325 MG TAB PO SCH ×2 (08:21→17:39)
--- NOTE | 2017-04-02 10:51 | PDOC.PN ---
- Subjective Encounter Start Date: 04/02/17 Encounter Start Time: 07:45 pt is resting, no problems. he decided to go to [facility] - Objective MAR Reviewed: Yes Vital Signs & Weight: Vital Signs (12 hours) Temp Pulse Resp BP Pulse Ox 04/02/17 08:21 80 04/02/17 07:30 98.1 F 84 16 136/74 98 04/02/17 01:15 100 04/01/17 23:28 98.0 F 80 19 155/72 H 100 Weight Weight 220 lb I&O: 04/01/17 04/02/17 04/03/17 06:59 06:59 06:59 Intake Total 1050 2191 Output Total 1300 2150 Balance -250 41 Result Diagrams: 03/30/17 04:54 03/31/17 04:18 Additional Labs: Accuchecks 04/02/17 04/01/17 04/01/17 05:25 19:33 16:31 POC Glucose 159 H 234 H 163 H 04/01/17 11:08 POC Glucose 246 H Phys Exam - Physical Examination Constitutional: NAD HEENT: PERRLA, moist MMs, sclera anicteric Neck: no JVD, supple Respiratory: no wheezing, no rales, no rhonchi Cardiovascular: RRR, no significant murmur, no rub Gastrointestinal: soft, non-tender, no distention, positive bowel sounds Musculoskeletal: no edema, pulses present right lower leg with dressing Neurological: non-focal, normal sensation, moves all 4 limbs Psychiatric: normal affect, A&O x 3 Skin: no rash, normal turgor Dx/Plan (1) Fracture of malleolus, right ankle, closed Code(s): S82.891A - OTH FRACTURE OF RIGHT LOWER LEG, INIT FOR CLOS FX Status: Acute Qualifiers: Encounter type: subsequent encounter Comment: s/p ORIF (2) CAD (coronary artery disease) Code(s): I25.10 - ATHSCL HEART DISEASE OF [place] CORONARY ARTERY W/O ANG PCTRS Status: Chronic (3) DM2 (diabetes mellitus, type 2) Status: Chronic (4) GERD (gastroesophageal reflux disease) Code(s): K21.9 - GASTRO-ESOPHAGEAL REFLUX DISEASE WITHOUT ESOPHAGITIS Status: Chronic (5) Hypertension Code(s): I10 - ESSENTIAL (PRIMARY) HYPERTENSION Status: Chronic (6) Obesity (BMI 30.0-34.9) Code(s): E66.9 - OBESITY, UNSPECIFIED Status: Chronic (7) PAF (paroxysmal atrial fibrillation) Code(s): I48.0 - PAROXYSMAL ATRIAL FIBRILLATION Status: Chronic - Plan cont current plan of care, PT/OT, social worker * DC IVF * medication reviewed as below * symptomatic treatment * social work for placement * medically stable with current treatment. Review of Systems - Review of Systems ENT: negative: Ear Pain, Ear Discharge, Nose Pain, Nose Discharge, Nose Congestion, Mouth Pain, Mouth Swelling, Throat Pain, Throat Swelling, Other Respiratory: negative: Cough, Dry, Shortness of Breath, Hemoptysis, SOB with Excertion, Pleuritic Pain, Sputum, Wheezing Cardiovascular: negative: Chest Pain, Palpitations, Orthopnea, Paroxysmal Noc. Dyspnea, Edema, Light Headedness, Other Gastrointestinal: negative: Nausea, Vomiting, Abdominal Pain, Diarrhea, Constipation, Melena, Hematochezia, Other Genitourinary: negative: Dysuria, Frequency, Incontinence, Hematuria, Retention , Other Musculoskeletal: negative: Neck Pain, Shoulder Pain, Arm Pain, Back Pain, Hand Pain, Leg Pain, Foot Pain, Other - Medications/Allergies Allergies/Adverse Reactions: Allergies Allergy/AdvReac Type Severity Reaction Status Date / Time codeine [Codeine] Allergy Mild Verified 08/25/16 12:45 Medications: Current Medications Acetaminophen (Tylenol) 650 mg PO Q4H PRN PRN Reason: Headache/Fever or Mild Pain Hydrocodone Bitart/Acetaminophen ([place] 5/325) 1 tab PO Q4H PRN PRN Reason: Mild Pain (1-3) Hydrocodone Bitart/Acetaminophen ([place] 5/325) 2 tab PO Q4H PRN PRN Reason: For Moderate Pain 4-6 Al Hydroxide/Mg Hydroxide (Maalox) 15 ml PO Q4H PRN PRN Reason: Heartburn or Indigestion Alogliptin Benzoate (Alogliptin) 12.5 mg PO DAILY [facility] Last Admin: 04/02/17 08:19 Dose: 12.5 mg Alprazolam (Xanax) 0.5 mg PO TID PRN PRN Reason: Anxiety Amiodarone HCl (Cordarone) 200 mg PO DAILY [facility] Last Admin: 04/02/17 08:20 Dose: 200 mg Artificial Tears (Tears Naturale) 0 drop EA EYE PRN PRN PRN Reason: Dry Eyes Carvedilol (Coreg) 3.125 mg PO BID [facility] Last Admin: 04/02/17 08:20 Dose: 3.125 mg Dextrose/Water (Dextrose 50%) 25 gm IVP PRN PRN PRN Reason: HYPOGLYCEMIA PROTOCOL Digoxin (Lanoxin) 0.125 mg PO DAILY [facility] Last Admin: 04/02/17 08:21 Dose: 0.125 mg Famotidine (Pepcid) 20 mg PO DAILY [facility] Last Admin: 04/02/17 08:20 Dose: 20 mg Fentanyl (Sublimaze) 12.5 mcg SLOW IVP Q8H PRN PRN Reason: .SEVERE PAIN Last Admin: 03/30/17 22:49 Dose: 12.5 mcg Fentanyl (Sublimaze) 50 mcg SLOW IVP Q1H PRN PRN Reason: .BREAKTHROUGH PAIN Ferrous Sulfate (Feosol) 325 mg PO BID-[facility] Last Admin: 04/02/17 08:21 Dose: 325 mg Glimepiride (Amaryl) 4 mg PO BID-[facility] Last Admin: 04/02/17 08:19 Dose: 4 mg Glucagon (Glucagon) 1 mg IM PRN PRN PRN Reason: HYPOGLYCEMIA PROTOCOL Guaifenesin (Robitussin Sf) 200 mg PO Q4H PRN PRN Reason: Cough Hydralazine HCl (Apresoline) 10 mg SLOW IVP Q4H PRN PRN Reason: Systolic BP > 180 Dextrose/Water (D5w) 1,000 mls @ 0 mls/hr IV INF PRN; As Directed PRN Reason: HYPOGLYCEMIA PROTOCOL Ropivacaine 250 ml/ Device 250 mls @ 6 mls/hr NERVE BLCK INF [facility] Last Admin: 04/02/17 05:46 Dose: 250 mls Insulin Human Lispro (Humalog) 0 units SC .MILD SLIDING SCALE PRN; Protocol PRN Reason: MILD SLIDING SCALE Last Admin: 04/02/17 06:30 Dose: 2 unit Ketorolac Tromethamine (Toradol) 15 mg IVP Q6H PRN PRN Reason: Moderate Pain (4-6) Stop: 04/03/17 15:31 Levothyroxine Sodium (Synthroid) 50 mcg PO 0600 [facility] Last Admin: 04/02/17 05:46 Dose: 50 mcg Loperamide HCl (Imodium) 2 mg PO PRN PRN PRN Reason: Diarrhea/Loose Stools Loratadine (Claritin) 10 mg PO DAILYPRN PRN PRN Reason: Sinus Symptoms Magnesium Hydroxide (Milk Of Magnesium) 30 ml PO DAILYPRN PRN PRN Reason: Constipation Metformin HCl (Glucophage) 1,000 mg PO QAM-[facility] Last Admin: 04/02/17 08:18 Dose: 1,000 mg Mineral Oil/White Petrolatum (Eucerin Cream) 0 gm TOP BIDPRN PRN PRN Reason: Dry Skin Ondansetron HCl (Zofran) 4 mg IVP Q6H PRN PRN Reason: Nausea/Vomiting Ondansetron HCl (Zofran Odt) 4 mg PO Q6H PRN PRN Reason: Nausea/Vomiting Promethazine HCl (Phenergan) 12.5 mg IM Q4H PRN PRN Reason: Nausea Ranolazine (Ranexa) 1,000 mg PO BID [facility] Last Admin: 04/02/17 08:21 Dose: 1,000 mg Rosuvastatin Calcium (Crestor) 10 mg PO [facility] Last Admin: 04/01/17 19:28 Dose: 10 mg Senna (Senokot) 2 tab PO HSPRN PRN PRN Reason: Constipation Sodium Chloride (Flush - Normal Saline) 10 ml IVF Q12HR [facility] Last Admin: 04/02/17 08:26 Dose: Not Given Sodium Chloride (Flush - Normal Saline) 10 ml IVF PRN PRN PRN Reason: Saline Flush Sodium Chloride ([place] Nasal [place] 0.65%) 0 ml EA NARE QIDPRN PRN PRN Reason: Nasal Congestion Tramadol HCl (Ultram) 50 mg PO Q6H PRN PRN Reason: Mild Pain (1-3) Tramadol HCl (Ultram) 100 mg PO Q6H PRN PRN Reason: Moderate Pain 4-6 Trazodone HCl (Desyrel) 200 mg PO [facility] Last Admin: 04/01/17 19:28 Dose: 200 mg Zolpidem Tartrate (Ambien) 5 mg PO HSPRN PRN PRN Reason: Insomnia
[2017-04-02] MEDS: traZODone HCl 50 MG TAB PO SCH (19:50)
[2017-04-02] MEDS: ALPRAZolam 0.5 MG TAB PO PRN (19:55)
[2017-04-02] MEDS ORDERED: Furosemide 40 MG TAB PO SCH (20:30)
[2017-04-03 05:33] LABS: #Eosinphils 0.2 thou/uL (0.0-0.7); #Lymphocytes 1.1 thou/uL (1.20-3.40); #Monocytes 0.7 thou/uL (0.11-0.59); #Neutrophils 3.8 thou/uL (1.40-6.50); %Basophils 0.5 % (0.0-1.0); %Eosinophils 2.9 % (0.0-10.0); %Lymphocytes 19.6 % (21.0-51.0); %Monocytes 11.6 % (0.0-10.0); Hematocrit 24.1 % (42.0-52.0); Mean Platelet Volume 6.6 fL (7.4-10.4); Red Blood Cell (RBC) Count 2.38 mill/uL (4.70-6.10); White Blood Cell (WBC) Count 5.8 thou/uL (4.8-10.8)
[2017-04-03 05:45] LABS: Anion Gap 8 mmol/L (10-20); BUN (Urea Nitrogen) 10 mg/dL (8.4-25.7); Calc. Creatinine Clearance 69 mL/min (70-130); Calcium 8.8 mg/dL (7.8-10.44); Carbon Dioxide 31 mmol/L (23-31); Chloride 104 mmol/L (98-107); Estimated GFR-MDRD 59
[2017-04-03] MEDS: Senokot 8.6 MG TAB PO PRN ×2 (06:29→08:14)
[2017-04-03] MEDS: Levothyroxine Sodium 50 MCG TAB PO SCH (06:29)
[2017-04-03] MEDS: Digoxin 0.125 MG TAB PO SCH (08:14)
[2017-04-03] MEDS: Alogliptin Benzoate 25 MG TABLET PO SCH (08:14)
[2017-04-03] MEDS: Ferrous Sulfate 325 MG TAB PO SCH ×2 (08:14→18:20)
[2017-04-03] MEDS: Carvedilol 3.125 MG TAB PO SCH ×2 (08:14→20:27)
[2017-04-03] MEDS: Glimepiride 4 MG TAB PO SCH ×2 (08:14→18:20)
[2017-04-03] MEDS: Furosemide 40 MG TAB PO SCH (08:15)
[2017-04-03] MEDS: metFORMIN 500 MG TAB PO SCH (08:15)
[2017-04-03] MEDS: Famotidine 20 MG TAB PO SCH (08:15)
--- NOTE | 2017-04-03 12:40 | PDOC.PN ---
- Subjective Encounter Start Date: 04/03/17 Encounter Start Time: 10:15 Patient seen and examined. No new complaints. No overnight events - Objective MAR Reviewed: Yes Vital Signs & Weight: Vital Signs (12 hours) Temp Pulse Resp BP Pulse Ox 04/03/17 11:50 97.5 F L 87 20 124/68 97 04/03/17 08:14 87 04/03/17 08:00 97.5 F L 87 20 04/03/17 07:25 97.5 F L 85 16 123/67 96 Weight Weight 220 lb I&O: 04/02/17 04/03/17 04/04/17 06:59 06:59 06:59 Intake Total 2191 Output Total 2150 3550 Balance 41 -3550 Result Diagrams: 04/03/17 04:58 04/03/17 04:58 Additional Labs: Accuchecks 04/03/17 04/03/17 04/02/17 10:59 05:28 20:08 POC Glucose 195 H 135 H 168 H 04/02/17 16:27 POC Glucose 133 H Phys Exam - Physical Examination Constitutional: NAD HEENT: PERRLA, moist MMs, sclera anicteric Neck: no JVD, supple Respiratory: no wheezing, no rales, no rhonchi Cardiovascular: RRR, no significant murmur, no rub Gastrointestinal: soft, non-tender, no distention, positive bowel sounds Musculoskeletal: no edema, pulses present right ankle with dressing Neurological: non-focal, normal sensation Psychiatric: normal affect, A&O x 3 Skin: no rash, normal turgor Dx/Plan (1) Fracture of malleolus, right ankle, closed Code(s): S82.891A - OTH FRACTURE OF RIGHT LOWER LEG, INIT FOR CLOS FX Status: Acute Qualifiers: Encounter type: subsequent encounter Comment: s/p ORIF (2) CAD (coronary artery disease) Code(s): I25.10 - ATHSCL HEART DISEASE OF [place] CORONARY ARTERY W/O ANG PCTRS Status: Chronic (3) DM2 (diabetes mellitus, type 2) Status: Chronic (4) GERD (gastroesophageal reflux disease) Code(s): K21.9 - GASTRO-ESOPHAGEAL REFLUX DISEASE WITHOUT ESOPHAGITIS Status: Chronic (5) Hypertension Code(s): I10 - ESSENTIAL (PRIMARY) HYPERTENSION Status: Chronic (6) Obesity (BMI 30.0-34.9) Code(s): E66.9 - OBESITY, UNSPECIFIED Status: Chronic (7) PAF (paroxysmal atrial fibrillation) Code(s): I48.0 - PAROXYSMAL ATRIAL FIBRILLATION Status: Chronic - Plan cont current plan of care, plan discussed w/ family, PT/OT, social media designer * medically stable with current treatment * medication reviewed as below * symptomatic treatment * needs placement * pain controlled. Review of Systems - Review of Systems ENT: negative: Ear Pain, Ear Discharge, Nose Pain, Nose Discharge, Nose Congestion, Mouth Pain, Mouth Swelling, Throat Pain, Throat Swelling, Other Respiratory: negative: Cough, Dry, Shortness of Breath, Hemoptysis, SOB with Excertion, Pleuritic Pain, Sputum, Wheezing Cardiovascular: negative: Chest Pain, Palpitations, Orthopnea, Paroxysmal Noc. Dyspnea, Edema, Light Headedness, Other Gastrointestinal: negative: Nausea, Vomiting, Abdominal Pain, Diarrhea, Constipation, Melena, Hematochezia, Other Genitourinary: negative: Dysuria, Frequency, Incontinence, Hematuria, Retention , Other Musculoskeletal: negative: Neck Pain, Shoulder Pain, Arm Pain, Back Pain, Hand Pain, Leg Pain, Foot Pain, Other - Medications/Allergies Allergies/Adverse Reactions: Allergies Allergy/AdvReac Type Severity Reaction Status Date / Time codeine [Codeine] Allergy Mild Verified 08/25/16 12:45 Medications: Current Medications Acetaminophen (Tylenol) 650 mg PO Q4H PRN PRN Reason: Headache/Fever or Mild Pain Hydrocodone Bitart/Acetaminophen ([place] 5/325) 1 tab PO Q4H PRN PRN Reason: Mild Pain (1-3) Hydrocodone Bitart/Acetaminophen ([place] 5/325) 2 tab PO Q4H PRN PRN Reason: For Moderate Pain 4-6 Al Hydroxide/Mg Hydroxide (Maalox) 15 ml PO Q4H PRN PRN Reason: Heartburn or Indigestion Alogliptin Benzoate (Alogliptin) 12.5 mg PO DAILY [facility] Last Admin: 04/03/17 08:14 Dose: 12.5 mg Alprazolam (Xanax) 0.5 mg PO TID PRN PRN Reason: Anxiety Last Admin: 04/02/17 19:55 Dose: 0.5 mg Amiodarone HCl (Cordarone) 200 mg PO DAILY [facility] Last Admin: 04/03/17 08:15 Dose: 200 mg Artificial Tears (Tears Naturale) 0 drop EA EYE PRN PRN PRN Reason: Dry Eyes Carvedilol (Coreg) 3.125 mg PO BID [facility] Last Admin: 04/03/17 08:14 Dose: 3.125 mg Dextrose/Water (Dextrose 50%) 25 gm IVP PRN PRN PRN Reason: HYPOGLYCEMIA PROTOCOL Digoxin (Lanoxin) 0.125 mg PO DAILY [facility] Last Admin: 04/03/17 08:14 Dose: 0.125 mg Famotidine (Pepcid) 20 mg PO DAILY [facility] Last Admin: 04/03/17 08:15 Dose: 20 mg Fentanyl (Sublimaze) 12.5 mcg SLOW IVP Q8H PRN PRN Reason: .SEVERE PAIN Last Admin: 03/30/17 22:49 Dose: 12.5 mcg Fentanyl (Sublimaze) 50 mcg SLOW IVP Q1H PRN PRN Reason: .BREAKTHROUGH PAIN Ferrous Sulfate ([facility]) [facility] Last Admin: 04/03/17 08:14 Dose: 325 mg Furosemide (Lasix) 40 mg PO 0900 [facility] Last Admin: 04/03/17 08:15 Dose: 40 mg [facility] Last Admin: 04/03/17 08:14 Dose: 4 mg Glucagon (Glucagon) 1 mg IM PRN PRN PRN Reason: HYPOGLYCEMIA PROTOCOL Guaifenesin (Robitussin Sf) 200 mg PO Q4H PRN PRN Reason: Cough Hydralazine HCl (Apresoline) 10 mg SLOW IVP Q4H PRN PRN Reason: Systolic BP > 180 Dextrose/Water (D5w) 1,000 mls @ 0 mls/hr IV INF PRN; As Directed PRN Reason: HYPOGLYCEMIA PROTOCOL Ropivacaine 250 ml/ Device 250 mls @ 6 mls/hr NERVE BLCK INF [facility] Last Admin: 04/02/17 05:46 Dose: 250 mls Insulin Human Lispro (Humalog) 0 units SC .MILD SLIDING SCALE PRN; Protocol PRN Reason: MILD SLIDING SCALE Last Admin: 04/02/17 06:30 Dose: 2 unit Ketorolac Tromethamine (Toradol) 15 mg IVP Q6H PRN PRN Reason: Moderate Pain (4-6) Stop: 04/03/17 15:31 Levothyroxine Sodium (Synthroid) 50 mcg PO 0600 [facility] Last Admin: 04/03/17 06:29 Dose: 50 mcg Loperamide HCl (Imodium) 2 mg PO PRN PRN PRN Reason: Diarrhea/Loose Stools Loratadine (Claritin) 10 mg PO DAILYPRN PRN PRN Reason: Sinus Symptoms Magnesium Hydroxide (Milk Of Magnesium) 30 ml PO DAILYPRN PRN PRN Reason: Constipation Metformin HCl (Glucophage) 1,000 mg PO QAM-[facility] Last Admin: 04/03/17 08:15 Dose: 1,000 mg Mineral Oil/White Petrolatum (Eucerin Cream) 0 gm TOP BIDPRN PRN PRN Reason: Dry Skin Ondansetron HCl (Zofran) 4 mg IVP Q6H PRN PRN Reason: Nausea/Vomiting Ondansetron HCl (Zofran Odt) 4 mg PO Q6H PRN PRN Reason: Nausea/Vomiting Promethazine HCl (Phenergan) 12.5 mg IM Q4H PRN PRN Reason: Nausea Ranolazine (Ranexa) 1,000 mg PO BID [facility] Last Admin: 04/03/17 08:14 Dose: 1,000 mg Rosuvastatin Calcium (Crestor) 10 mg PO [facility] Last Admin: 04/02/17 19:50 Dose: 10 mg Senna (Senokot) 2 tab PO HSPRN PRN PRN Reason: Constipation Last Admin: 04/03/17 08:14 Dose: 2 tab Sodium Chloride (Flush - Normal Saline) 10 ml IVF Q12HR [facility] Last Admin: 04/03/17 11:50 Dose: Not Given Sodium Chloride (Flush - Normal Saline) 10 ml IVF PRN PRN PRN Reason: Saline Flush Sodium Chloride ([place] Nasal [place] 0.65%) 0 ml EA NARE QIDPRN PRN PRN Reason: Nasal Congestion Tramadol HCl (Ultram) 50 mg PO Q6H PRN PRN Reason: Mild Pain (1-3) Tramadol HCl (Ultram) 100 mg PO Q6H PRN PRN Reason: Moderate Pain 4-6 Trazodone HCl (Desyrel) 200 mg PO [facility] Last Admin: 04/02/17 19:50 Dose: 200 mg Zolpidem Tartrate (Ambien) 5 mg PO HSPRN PRN PRN Reason: Insomnia
[2017-04-03] MEDS: traMADol HCl 50 MG TAB PO PRN (20:36)
[2017-04-03] MEDS: ALPRAZolam 0.5 MG TAB PO PRN (20:36)
[2017-04-03] MEDS: traZODone HCl 50 MG TAB PO SCH (20:37)
[2017-04-04] MEDS: Ropivacaine HCl/PF 250 ML in Premix Bag 1 BAG NERVE BLCK SCH (01:43)
[2017-04-04] MEDS: Levothyroxine Sodium 50 MCG TAB PO SCH (05:33)
[2017-04-04] MEDS: Ferrous Sulfate 325 MG TAB PO SCH ×2 (08:31→17:20)
[2017-04-04] MEDS: Glimepiride 4 MG TAB PO SCH ×2 (08:35→17:20)
--- NOTE | 2017-04-04 08:35 | PDOC.PN ---
- Subjective Encounter Start Date: 04/04/17 Encounter Start Time: 08:34 - Objective MAR Reviewed: Yes Vital Signs & Weight: Vital Signs (12 hours) Temp Pulse Resp BP BP Pulse Ox 04/04/17 07:53 97.9 F 88 20 137/77 98 04/04/17 04:00 97.5 F L 89 16 149/68 H 98 04/04/17 00:00 98.2 F 88 18 146/69 H 100 Weight Weight 207 lb I&O: 04/03/17 04/04/17 04/05/17 06:59 06:59 06:59 Intake Total 560 Output Total 3550 2450 Balance -3550 -1890 Result Diagrams: 04/05/17 08:45 04/03/17 04:58 Additional Labs: Accuchecks 04/04/17 04/03/17 04/03/17 05:22 20:43 16:00 POC Glucose 108 126 H 106 04/03/17 10:59 POC Glucose 195 H Laboratory Tests 03/29/17 03/29/17 03/29/17 15:33 15:34 15:34 Hgb 9.4 L Creatinine 2.12 H TSH 3rd Generation 73.4602 H 03/30/17 03/30/17 03/31/17 04:54 04:54 04:18 Hgb 8.0 L Creatinine 1.85 H 1.35 H TSH 3rd Generation 04/03/17 04/03/17 04:58 04:58 Hgb 7.9 L Creatinine 1.18 TSH 3rd Generation Dx/Plan (1) Fracture of malleolus, right ankle, closed Code(s): S82.891A - OTH FRACTURE OF RIGHT LOWER LEG, INIT FOR CLOS FX Status: Acute Qualifiers: Encounter type: subsequent encounter Comment: s/p ORIF (2) CAD (coronary artery disease) Code(s): I25.10 - ATHSCL HEART DISEASE OF [place] CORONARY ARTERY W/O ANG PCTRS Status: Chronic Comment: ASA,BB (3) DM2 (diabetes mellitus, type 2) Status: Chronic Comment: on ISS (4) GERD (gastroesophageal reflux disease) Code(s): K21.9 - GASTRO-ESOPHAGEAL REFLUX DISEASE WITHOUT ESOPHAGITIS Status: Chronic (5) Hypertension Code(s): I10 - ESSENTIAL (PRIMARY) HYPERTENSION Status: Chronic Comment: Labile hypertension (6) Obesity (BMI 30.0-34.9) Code(s): E66.9 - OBESITY, UNSPECIFIED Status: Chronic (7) PAF (paroxysmal atrial fibrillation) Code(s): I48.0 - PAROXYSMAL ATRIAL FIBRILLATION Status: Chronic Comment: on Coreg,Digoxin,amiodarone.rate controlled (8) Hypothyroid Code(s): E03.9 - HYPOTHYROIDISM, UNSPECIFIED Status: Acute Comment: New diagnosis. Started on Levothyroxine this admission (9) Cardiomyopathy Code(s): I42.9 - CARDIOMYOPATHY, UNSPECIFIED Status: Chronic Qualifiers: Cardiomyopathy type: unspecified Qualified Code(s): I42.9 - Cardiomyopathy , unspecified Comment: s/p AICD.EF 35-40%.on Coreg.No ANTONY-I/ARB d/t Hypotension and CLAIRE on presentation.Spironolactone on hold due to low BP (10) CLAIRE (acute kidney injury) Code(s): N17.9 - ACUTE KIDNEY FAILURE, UNSPECIFIED Status: Resolved (11) Syncope and collapse Code(s): R55 - SYNCOPE AND COLLAPSE Status: Acute Comment: due to hypotension - Plan plan discussed w/ family, PT/OT, drug abuse social worker, out of bed/ambulate, DVT proph w/SCDs pt encouraged to work w PT. -: will DC Liu.restart Flomax.monitor UO.check UA & Cx again.afebrile -: discussed w Dr. hood about ANTONY-I/ARB.C/I d/t hypotension. -: monitor H/H.hemodynamically stable. -: DC when rehab arranged. * . Review of Systems - Medications/Allergies Allergies/Adverse Reactions: Allergies Allergy/AdvReac Type Severity Reaction Status Date / Time codeine [Codeine] Allergy Mild Verified 08/25/16 12:45 Medications: Current Medications Acetaminophen (Tylenol) 650 mg PO Q4H PRN PRN Reason: Headache/Fever or Mild Pain Hydrocodone Bitart/Acetaminophen ([place] 5/325) 1 tab PO Q4H PRN PRN Reason: Mild Pain (1-3) Hydrocodone Bitart/Acetaminophen ([place] 5/325) 2 tab PO Q4H PRN PRN Reason: For Moderate Pain 4-6 Al Hydroxide/Mg Hydroxide (Maalox) 15 ml PO Q4H PRN PRN Reason: Heartburn or Indigestion Alogliptin Benzoate (Alogliptin) 12.5 mg PO DAILY [facility] Last Admin: 04/03/17 08:14 Dose: 12.5 mg Alprazolam (Xanax) 0.5 mg PO TID PRN PRN Reason: Anxiety Last Admin: 04/03/17 20:36 Dose: 0.5 mg Amiodarone HCl (Cordarone) 200 mg PO DAILY [facility] Last Admin: 04/03/17 08:15 Dose: 200 mg Artificial Tears (Tears Naturale) 0 drop EA EYE PRN PRN PRN Reason: Dry Eyes Carvedilol (Coreg) 3.125 mg PO BID [facility] Last Admin: 04/03/17 20:27 Dose: 3.125 mg Dextrose/Water (Dextrose 50%) 25 gm IVP PRN PRN PRN Reason: HYPOGLYCEMIA PROTOCOL Digoxin (Lanoxin) 0.125 mg PO DAILY [facility] Last Admin: 04/03/17 08:14 Dose: 0.125 mg Famotidine (Pepcid) 20 mg PO DAILY [facility] Last Admin: 04/03/17 08:15 Dose: 20 mg Fentanyl (Sublimaze) 12.5 mcg SLOW IVP Q8H PRN PRN Reason: .SEVERE PAIN Last Admin: 03/30/17 22:49 Dose: 12.5 mcg Fentanyl (Sublimaze) 50 mcg SLOW IVP Q1H PRN PRN Reason: .BREAKTHROUGH PAIN Ferrous Sulfate (Feosol) 325 mg PO BID-[facility] Last Admin: 04/03/17 18:20 Dose: 325 mg Furosemide (Lasix) 40 mg PO 0900 [facility] Last Admin: 04/03/17 08:15 Dose: 40 mg Glimepiride (Amaryl) 4 mg PO BID-[facility] Last Admin: 04/03/17 18:20 Dose: 4 mg Glucagon (Glucagon) 1 mg IM PRN PRN PRN Reason: HYPOGLYCEMIA PROTOCOL Guaifenesin (Robitussin Sf) 200 mg PO Q4H PRN PRN Reason: Cough Hydralazine HCl (Apresoline) 10 mg SLOW IVP Q4H PRN PRN Reason: Systolic BP > 180 Dextrose/Water (D5w) 1,000 mls @ 0 mls/hr IV INF PRN; As Directed PRN Reason: HYPOGLYCEMIA PROTOCOL Ropivacaine 250 ml/ Device 250 mls @ 6 mls/hr NERVE BLCK INF [facility] Last Admin: 04/04/17 01:43 Dose: 250 mls Insulin Human Lispro (Humalog) 0 units SC .MILD SLIDING SCALE PRN; Protocol PRN Reason: MILD SLIDING SCALE Last Admin: 04/02/17 06:30 Dose: 2 unit Levothyroxine Sodium (Synthroid) 50 mcg PO 0600 [facility] Last Admin: 04/04/17 05:33 Dose: 50 mcg Loperamide HCl (Imodium) 2 mg PO PRN PRN PRN Reason: Diarrhea/Loose Stools Loratadine (Claritin) 10 mg PO DAILYPRN PRN PRN Reason: Sinus Symptoms Magnesium Hydroxide (Milk Of Magnesium) 30 ml PO DAILYPRN PRN PRN Reason: Constipation Last Admin: 04/04/17 05:33 Dose: 30 ml Metformin HCl (Glucophage) 1,000 mg PO QAM-[facility] Last Admin: 04/03/17 08:15 Dose: 1,000 mg Mineral Oil/White Petrolatum (Eucerin Cream) 0 gm TOP BIDPRN PRN PRN Reason: Dry Skin Ondansetron HCl (Zofran) 4 mg IVP Q6H PRN PRN Reason: Nausea/Vomiting Ondansetron HCl (Zofran Odt) 4 mg PO Q6H PRN PRN Reason: Nausea/Vomiting Polyethylene Glycol (Miralax) 17 gm PO DAILY [facility] Promethazine HCl (Phenergan) 12.5 mg IM Q4H PRN PRN Reason: Nausea Ranolazine (Ranexa) 1,000 mg PO BID [facility] Last Admin: 04/03/17 20:26 Dose: 1,000 mg Rosuvastatin Calcium (Crestor) 10 mg PO HS [facility] Last Admin: 04/03/17 20:27 Dose: 10 mg Senna (Senokot) 2 tab PO HSPRN PRN PRN Reason: Constipation Last Admin: 04/03/17 08:14 Dose: 2 tab Sodium Chloride (Flush - Normal Saline) 10 ml IVF Q12HR [facility] Last Admin: 04/03/17 20:28 Dose: 10 ml Sodium Chloride (Flush - Normal Saline) 10 ml IVF PRN PRN PRN Reason: Saline Flush Sodium Chloride ([place] Nasal [place] 0.65%) 0 ml EA NARE QIDPRN PRN PRN Reason: Nasal Congestion Tramadol HCl (Ultram) 50 mg PO Q6H PRN PRN Reason: Mild Pain (1-3) Last Admin: 04/03/17 20:36 Dose: 50 mg Tramadol HCl (Ultram) 100 mg PO Q6H PRN PRN Reason: Moderate Pain 4-6 Trazodone HCl (Desyrel) 200 mg PO HS [facility] Last Admin: 04/03/17 20:37 Dose: 200 mg Zolpidem Tartrate (Ambien) 5 mg PO HSPRN PRN PRN Reason: Insomnia
[2017-04-04] MEDS: metFORMIN 500 MG TAB PO SCH ×2 (08:37→08:38)
[2017-04-04] MEDS: Alogliptin Benzoate 25 MG TABLET PO SCH (08:38)
[2017-04-04] MEDS: Digoxin 0.125 MG TAB PO SCH (08:39)
[2017-04-04] MEDS: Carvedilol 3.125 MG TAB PO SCH ×2 (08:39→21:15)
[2017-04-04] MEDS: Famotidine 20 MG TAB PO SCH (08:40)
[2017-04-04] MEDS: Furosemide 40 MG TAB PO SCH (08:40)
[2017-04-04] MEDS: Polyethylene Glycol 3350 17 GM Packet PO SCH (08:41)
[2017-04-04] MEDS ORDERED: Fleet Enema 133 ML BOT FS SCH (13:15)
[2017-04-04 13:20] LABS: Bilirubin Negative (Negative); Blood, Urine Negative (Negative); Glucose, Urine (Dipstick) Negative (Negative); Ketone, Urine Negative (Negative); Nitrite Negative (Negative); Protein, Urine (Dipstick) Negative (Neg-Trace)
[2017-04-04 13:21] LABS: Bacteria/HPF None Seen HPF (None Seen); Hyaline Casts/LPF 0-3 HYALINE CAST LPF (0-3 Hyaline); Squamous Epithelial None Seen HPF (0-3); WBC/HPF 21-50 HPF (0-3)
--- NOTE | 2017-04-04 16:39 | RAD ---
RIGHT ANKLE 2 VIEWS: Date: 03/31/17 HISTORY: Fracture. FINDINGS/IMPRESSION: Two spot fluoroscopic intraoperative images of the right ankle demonstrate interval reduction and in ternal fixation of the medial malleolus noted on exam of 03/29/17. POS: SONIA
[2017-04-04] MEDS: traZODone HCl 50 MG TAB PO SCH (21:14)
[2017-04-04] MEDS: Senokot 8.6 MG TAB PO PRN (21:14)
[2017-04-04] MEDS: ALPRAZolam 0.5 MG TAB PO PRN (21:15)
[2017-04-05] MEDS: Levothyroxine Sodium 50 MCG TAB PO SCH (05:27)
[2017-04-05] MEDS: Glimepiride 4 MG TAB PO SCH (06:19)
--- NOTE | 2017-04-05 08:49 | PDOC.PN ---
- Subjective Encounter Start Date: 04/05/17 Encounter Start Time: 08:46 Subjective: feels better. able to stand up w PT. -: denies any F/C.no CP/SOB/Cough.no Fever/chills - Objective MAR Reviewed: Yes Vital Signs & Weight: Vital Signs (12 hours) Temp Pulse Resp BP BP Pulse Ox 04/05/17 07:54 98.3 F 80 16 134/76 100 04/05/17 04:08 98.2 F 83 20 132/65 100 04/04/17 23:38 17 96 04/04/17 21:05 97.9 F 78 17 119/60 95 Weight Weight 209 lb I&O: 04/04/17 04/05/17 04/06/17 06:59 06:59 06:59 Intake Total 560 1230 Output Total 2750 3760 Balance -2190 -2530 Result Diagrams: 04/05/17 08:45 04/03/17 04:58 Additional Labs: Accuchecks 04/05/17 04/04/17 04/04/17 06:06 19:59 16:09 POC Glucose 123 H 163 H 125 H 04/04/17 10:48 POC Glucose 132 H Laboratory Tests 11/02/16 03/29/17 04:52 15:33 TSH 3rd Generation 5.6932 H 73.4602 H Phys Exam - Physical Examination Constitutional: NAD HEENT: PERRLA, moist MMs, sclera anicteric, oral pharynx no lesions Neck: no nodes, no JVD, supple, full ROM Respiratory: no wheezing, no rales, no rhonchi, clear to auscultation bilateral Cardiovascular: no significant murmur, irregular Gastrointestinal: soft, non-tender, no distention, positive bowel sounds Musculoskeletal: no edema, pulses present Neurological: non-focal, normal sensation, moves all 4 limbs Psychiatric: normal affect, A&O x 3 Skin: no rash Dx/Plan (1) Fracture of malleolus, right ankle, closed Code(s): S82.891A - OTH FRACTURE OF RIGHT LOWER LEG, INIT FOR CLOS FX Status: Acute Qualifiers: Encounter type: subsequent encounter Comment: s/p ORIF (2) CAD (coronary artery disease) Code(s): I25.10 - ATHSCL HEART DISEASE OF [place] CORONARY ARTERY W/O ANG PCTRS Status: Chronic Comment: ASA,BB (3) DM2 (diabetes mellitus, type 2) Status: Chronic Comment: on ISS (4) GERD (gastroesophageal reflux disease) Code(s): K21.9 - GASTRO-ESOPHAGEAL REFLUX DISEASE WITHOUT ESOPHAGITIS Status: Chronic (5) Hypertension Code(s): I10 - ESSENTIAL (PRIMARY) HYPERTENSION Status: Chronic Comment: Labile hypertension (6) Obesity (BMI 30.0-34.9) Code(s): E66.9 - OBESITY, UNSPECIFIED Status: Chronic (7) PAF (paroxysmal atrial fibrillation) Code(s): I48.0 - PAROXYSMAL ATRIAL FIBRILLATION Status: Chronic Comment: on Coreg,Digoxin,amiodarone.rate controlled (8) Hypothyroid Code(s): E03.9 - HYPOTHYROIDISM, UNSPECIFIED Status: Acute Comment: New diagnosis. Started on Levothyroxine this admission (9) Cardiomyopathy Code(s): I42.9 - CARDIOMYOPATHY, UNSPECIFIED Status: Chronic Qualifiers: Cardiomyopathy type: unspecified Qualified Code(s): I42.9 - Cardiomyopathy , unspecified Comment: s/p AICD.EF 35-40%.on Coreg.No ANTONY-I/ARB d/t Hypotension and CLAIRE on presentation.Spironolactone on hold due to low BP (10) CLAIRE (acute kidney injury) Code(s): N17.9 - ACUTE KIDNEY FAILURE, UNSPECIFIED Status: Resolved (11) Syncope and collapse Code(s): R55 - SYNCOPE AND COLLAPSE Status: Acute Comment: due to hypotension - Plan PT/OT, social services analyst, out of bed/ambulate, DVT proph w/SCDs hemodynamically stable.accepted at rehab.OK to DC. -: meds reviewed.Plan discussed w Pt. -: Anticoagulation C/I despite a-fib as pt high risk of fall & bleed. -: no ANTONY-I d/t labile BP & potential for hypotension. * . Review of Systems - Medications/Allergies Allergies/Adverse Reactions: Allergies Allergy/AdvReac Type Severity Reaction Status Date / Time codeine [Codeine] Allergy Mild Verified 08/25/16 12:45 Medications: Current Medications Acetaminophen (Tylenol) 650 mg PO Q4H PRN PRN Reason: Headache/Fever or Mild Pain Last Admin: 04/05/17 05:32 Dose: 650 mg Hydrocodone Bitart/Acetaminophen ([place] 5/325) 1 tab PO Q4H PRN PRN Reason: Mild Pain (1-3) Hydrocodone Bitart/Acetaminophen ([place] 5/325) 2 tab PO Q4H PRN PRN Reason: For Moderate Pain 4-6 Al Hydroxide/Mg Hydroxide (Maalox) 15 ml PO Q4H PRN PRN Reason: Heartburn or Indigestion Alogliptin Benzoate (Alogliptin) 12.5 mg PO DAILY [facility] Last Admin: 04/04/17 08:38 Dose: 12.5 mg Alprazolam (Xanax) 0.5 mg PO TID PRN PRN Reason: Anxiety Last Admin: 04/04/17 21:15 Dose: 0.5 mg Amiodarone HCl (Cordarone) 200 mg PO DAILY [facility] Last Admin: 04/04/17 08:39 Dose: 200 mg Artificial Tears (Tears Naturale) 0 drop EA EYE PRN PRN PRN Reason: Dry Eyes Carvedilol (Coreg) 3.125 mg PO BID [facility] Last Admin: 04/04/17 21:15 Dose: 3.125 mg Dextrose/Water (Dextrose 50%) 25 gm IVP PRN PRN PRN Reason: HYPOGLYCEMIA PROTOCOL Digoxin (Lanoxin) 0.125 mg PO DAILY [facility] Last Admin: 04/04/17 08:39 Dose: 0.125 mg Famotidine (Pepcid) 20 mg PO DAILY [facility] Last Admin: 04/04/17 08:40 Dose: 20 mg Fentanyl (Sublimaze) 12.5 mcg SLOW IVP Q8H PRN PRN Reason: .SEVERE PAIN Last Admin: 03/30/17 22:49 Dose: 12.5 mcg Fentanyl (Sublimaze) 50 mcg SLOW IVP Q1H PRN PRN Reason: .BREAKTHROUGH PAIN Ferrous Sulfate (Feosol) 325 mg PO BID-[facility] Last Admin: 04/04/17 17:20 Dose: 325 mg Furosemide (Lasix) 40 mg PO 0900 [facility] Last Admin: 04/04/17 08:40 Dose: 40 mg Glimepiride (Amaryl) 4 mg PO BID-[facility] Last Admin: 04/05/17 06:19 Dose: 4 mg Glucagon (Glucagon) 1 mg IM PRN PRN PRN Reason: HYPOGLYCEMIA PROTOCOL Guaifenesin (Robitussin Sf) 200 mg PO Q4H PRN PRN Reason: Cough Hydralazine HCl (Apresoline) 10 mg SLOW IVP Q4H PRN PRN Reason: Systolic BP > 180 Dextrose/Water (D5w) 1,000 mls @ 0 mls/hr IV INF PRN; As Directed PRN Reason: HYPOGLYCEMIA PROTOCOL Ropivacaine 250 ml/ Device 250 mls @ 5 mls/hr NERVE BLCK INF [facility] Last Admin: 04/04/17 01:43 Dose: 250 mls Insulin Human Lispro (Humalog) 0 units SC .MILD SLIDING SCALE PRN; Protocol PRN Reason: MILD SLIDING SCALE Last Admin: 04/02/17 06:30 Dose: 2 unit Lactulose (Lactulose) 20 gm PO PRN PRN PRN Reason: .CONSTIPATION Levothyroxine Sodium (Synthroid) 50 mcg PO 0600 [facility] Last Admin: 04/05/17 05:27 Dose: 50 mcg Loperamide HCl (Imodium) 2 mg PO PRN PRN PRN Reason: Diarrhea/Loose Stools Loratadine (Claritin) 10 mg PO DAILYPRN PRN PRN Reason: Sinus Symptoms Magnesium Hydroxide (Milk Of Magnesium) 30 ml PO DAILYPRN PRN PRN Reason: Constipation Last Admin: 04/04/17 05:33 Dose: 30 ml Metformin HCl (Glucophage) 1,000 mg PO QA-[facility] Last Admin: 04/04/17 08:38 Dose: 1,000 mg Mineral Oil/White Petrolatum (Eucerin Cream) 0 gm TOP BIDPRN PRN PRN Reason: Dry Skin Ondansetron HCl (Zofran) 4 mg IVP Q6H PRN PRN Reason: Nausea/Vomiting Ondansetron HCl (Zofran Odt) 4 mg PO Q6H PRN PRN Reason: Nausea/Vomiting Polyethylene Glycol (Miralax) 17 gm PO DAILY [facility] Last Admin: 04/04/17 08:41 Dose: 17 gm Promethazine HCl (Phenergan) 12.5 mg IM Q4H PRN PRN Reason: Nausea Ranolazine (Ranexa) 1,000 mg PO BID [facility] Last Admin: 04/04/17 21:14 Dose: 1,000 mg Rosuvastatin Calcium (Crestor) 10 mg PO HS [facility] Last Admin: 04/04/17 21:14 Dose: 10 mg Senna (Senokot) 2 tab PO HSPRN PRN PRN Reason: Constipation Last Admin: 04/04/17 21:14 Dose: 2 tab Sodium Chloride (Flush - Normal Saline) 10 ml IVF Q12HR [facility] Last Admin: 04/04/17 21:18 Dose: 10 ml Sodium Chloride (Flush - Normal Saline) 10 ml IVF PRN PRN PRN Reason: Saline Flush Sodium Chloride ([place] Nasal [place] 0.65%) 0 ml EA NARE QIDPRN PRN PRN Reason: Nasal Congestion Tamsulosin HCl (Flomax) 0.4 mg PO QAM MARIA ISABEL Tramadol HCl (Ultram) 50 mg PO Q6H PRN PRN Reason: Mild Pain (1-3) Last Admin: 04/03/17 20:36 Dose: 50 mg Tramadol HCl (Ultram) 100 mg PO Q6H PRN PRN Reason: Moderate Pain 4-6 Trazodone HCl (Desyrel) 200 mg PO HS MARIA ISABEL Last Admin: 04/04/17 21:14 Dose: 200 mg Zolpidem Tartrate (Ambien) 5 mg PO HSPRN PRN PRN Reason: Insomnia
[2017-04-05 08:59] LABS: Hematocrit 23.7 % (42.0-52.0)
[2017-04-05] MEDS ORDERED: Tamsulosin HCl 0.4 MG CAP PO SCH (09:00)
[2017-04-05] MEDS: Alogliptin Benzoate 25 MG TABLET PO SCH (09:00)
[2017-04-05] MEDS: Ferrous Sulfate 325 MG TAB PO SCH (09:08)
[2017-04-05] MEDS: Polyethylene Glycol 3350 17 GM Packet PO SCH (09:08)
[2017-04-05] MEDS: metFORMIN 500 MG TAB PO SCH (09:09)
[2017-04-05] MEDS: Carvedilol 3.125 MG TAB PO SCH (09:09)
[2017-04-05] MEDS: Famotidine 20 MG TAB PO SCH ×2 (09:09→09:10)
[2017-04-05] MEDS: Furosemide 40 MG TAB PO SCH (09:10)
[2017-04-05] MEDS: Digoxin 0.125 MG TAB PO SCH (09:10)
[2017-04-05 11:36] VITALS: BP 125/63; TEMP 97.7
[2017-04-05] MEDS: traMADol HCl 50 MG TAB PO PRN (13:50)
--- NOTE | 2017-04-05 23:55 | DIS ---
DATE OF ADMISSION: 03/29/2017 DATE OF DISCHARGE: 04/05/2017 PRIMARY CARE PHYSICIAN: Moise Estrada MD DISCHARGE DISPOSITION: [facility]. DISCHARGE DIAGNOSES: 1. Syncope due to hypotension. 2. Fall secondary to syncope. 3. Right ankle fracture abnormality illness, status post open reduction and internal fixation. 4. History of paroxysmal atrial fibrillation, rate control. Contraindication to anticoagulation du e to fall risk. 5. Coronary artery disease. 6. Diabetes mellitus, type 2. 7. Gastroesophageal reflux disease. 8. Hypertension. 9. Obesity. 10. Hypothyroidism. 11. Cardiomyopathy, status post AICD placement. 12. Acute kidney injury, resolved. DISCHARGE MEDICATIONS: Please note that his inhibitors and ARBs are contraindicated due to the radames ent's propensity for low blood pressure and syncope. Also note that anticoagulants are contraindica mary due to fall risk and bleeding risk. Discharge medications are as follows: Multivitamin one tablet p.o. b.i.d., digoxin 0.125 mg daily, Plavix 75 mg daily, Coreg 3.125 mg daily, calcium 800 mg p.o. b.i.d., amiodarone 200 mg p.o. b.i.d., alprazolam 0.5 mg p.o. t.i.d. p.r.n., Januvia 50 mg daily, metformin 1000 mg daily, Zantac 150 mg d aily, vitamin B complex daily, Flomax 0.4 mg daily, Aldactone 12.5 mg p.o. b.i.d., Crestor 10 mg juan ly, Ranexa 1000 mg p.o. b.i.d., glimepiride 4 mg p.o. b.i.d., Lasix 40 mg daily, ferrous sulfate 325 mg p.o. b.i.d., trazodone 200 mg at bedtime, levothyroxine 50 mcg daily, Zofran as needed, Milk of Magnesia as needed, lactulose as needed, [place] as needed, glucose and dextrose as per the hypoglycem ia protocol, and Maalox and Tylenol as needed. CONSULTATIONS: Inhouse include: 1. Orthopedics, Dr. José Luis Beal. 2. Cardiology, Dr. Jazz Stanley. 3. Pulmonary Medicine, Dr. Lester. PROCEDURES DONE IN THE HOSPITAL: Include: 1. X-ray of the knee, bilaterally. Right knee has no osseous deformity. Left knee shows no fractu re or dislocation either. 2. CT scan of the brain upon presentation, which showed cortical atrophy and [id number] chr onic ischemic white matter changes. 3. CT scan of the cervical spine, which shows degenerative changes without any acute fracture. 4. X-ray of the tibia and fibula, which is once again negative for any acute fractures. 5. X-ray of the foot on the right side, which show fractures involving the medial and lat eral malleoli. 6. Ankle x-ray after the reduction of the malleolar fractures. It shows mild residual displacement of the lateral malleolus on the right side. 7. Open reduction and internal fixation of the right bimalleolar ankle fracture on 03/31/2017. 8. Transthoracic echocardiogram on 04/01/2017, which showed EF of 35% to 40%, with inferior wall mo tion akinesis and thinning and dilatation of the left atrium. Bioprosthetic aortic valve noticed. ADMISSION HISTORY: Mr. Kevin Ramsay is a very pleasant 81-year-old male with past medical hi story of hypertension, paroxysmal atrial fibrillation, cardiomyopathy, status post AICD, and history of coronary artery disease, and aortic valve replacement, who presented to the ER after he had sust ained a fall when he lost consciousness from standing up too quickly. Upon presentation to the ER, the patient was found to be hypotensive and received fluid bolus and was admitted to the Critical Ca re Unit. His blood pressure was 104/48 upon examination. He was put on document control assistant due to sync ope from unknown causes and Cardiology was also consulted. His TSH was found to be very high and he was started on levothyroxine supplement for hypothyroidism. Please see admission history and physi wayne for further details. HOSPITAL COURSE: Orthopedics was consulted because of the malleolar fracture. The patient underwen t reduction in the emergency room and later open reduction and internal fixation by Dr. Beal. Cardiology was consulted for preoperative evaluation and Dr. Cota initially saw the patient and Dr. Stanley followed along. He was cleared for surgery by Cardiology and had tolerated the procedure clayton y well. He was restarted on his home medication post-procedure. Dr. Lester from Critical Care saw the patient when he was in the ICU. He was transferred to the [facility] urgent care floor shortly after he was stabilized. After the procedure, the patient was seen by the physical therapist and he was deemed appropriate fo r rehabilitation. Rehab was arranged for the patient. He remained hemodynamically stable otherwise . He has not been started on ANTONY inhibitors due to propensity for hypotension. Also anticoagulants are contraindicated as per Dr. Stanley due to his history and risk for frequent falls and bleed. He was seen and examined on the day of discharge and has been feeling very well. He is working with the physical therapist here in the hospital as well. He is euvolemic and is clear for discharge at this time. Please see hospitalist progress note from today's date for further detail including the [id number] interaction. Total time spent in the discharge of this patient, 32 minutes.
== END 2017-04-05 14:40 | DRG 982 ==
LOC: ERS 13:33 → IMCU/EMU 19:43 → SJJU 03-31 17:16
PROVIDERS: ADMIT Internal Medicine; ATTEND Internal Medicine
PROC: 0QSG04Z Reposition Right Tibia with Internal Fixation Device, Open Approach (ICD-10-PCS; principal; 2017-03-31)
PROC: 0QSJ04Z Reposition Right Fibula with Internal Fixation Device, Open Approach (ICD-10-PCS; 2017-03-31)
PROC: 3E0T3BZ Introduction of Anesthetic Agent into Peripheral Nerves and Plexi, Percutaneous Approach (ICD-10-PCS; 2017-03-31)
DX: I95.1 Orthostatic hypotension (principal); N17.9 Acute kidney failure, unspecified; I42.9 Cardiomyopathy, unspecified; E11.22 Type 2 diabetes mellitus with diabetic chronic kidney disease; I13.0 Hypertensive heart and chronic kidney disease with heart failure and stage 1 through stage 4 chronic kidney disease, or unspecified chronic kidney disease; I50.9 Heart failure, unspecified; I48.0 Paroxysmal atrial fibrillation; I25.10 Atherosclerotic heart disease of native coronary artery without angina pectoris; E03.9 Hypothyroidism, unspecified; Z95.5 Presence of coronary angioplasty implant and graft; Z95.2 Presence of prosthetic heart valve; S82.841A Displaced bimalleolar fracture of right lower leg, initial encounter for closed fracture; W19.XXXA Unspecified fall, initial encounter; K21.9 Gastro-esophageal reflux disease without esophagitis; E66.9 Obesity, unspecified; Z95.810 Presence of automatic (implantable) cardiac defibrillator; Z79.84 Long term (current) use of oral hypoglycemic drugs; I25.2 Old myocardial infarction; Z68.30 Body mass index [BMI] 30.0-30.9, adult; N40.0 Benign prostatic hyperplasia without lower urinary tract symptoms; N18.9 Chronic kidney disease, unspecified
CPT/HCPCS: 27808; 36415; 36416; 51702; 70450; 71010; 72125; 76001; 80048; 80053; 81003; 81015; 82553; 83690; 83735; 83880; 84443; 84484; 85014; 85018; 85025; 85610; 85730; 86850; 86900; 86901; 87077; 87086; 87186; 93005; 93306; A4216; C1713; G8978-GP-CM; G8979-GP-CK; G8987-GO-CL; G8988-GO-CJ; J0131; J1885; J2001; J2250; J2270; J2405; J2704; J2795; J3010; J3480; J7050

== ENCOUNTER 2017-04-07 21:37 | Emergency (ER) | payer MEDICARE, OTHER ==
[2017-04-07 23:23] LABS: Bilirubin Small (Negative); Blood, Urine Negative (Negative); Glucose, Urine (Dipstick) Negative (Negative); Ketone, Urine Trace mg/dL (Negative); Nitrite Negative (Negative); Protein, Urine (Dipstick) 30 mg/dL (Neg-Trace)
[2017-04-07 23:26] LABS: Bacteria/HPF None Seen HPF (None Seen); Hyaline Casts/LPF 0-3 HYALINE CAST LPF (0-3 Hyaline); Squamous Epithelial None Seen HPF (0-3)
--- NOTE | 2017-04-07 23:51 | RAD ---
AP VIEW ABDOMEN: 04/07/17 HISTORY: Abdominal pain. Two supine views of the abdomen is obtained. Multilevel lumbar degenerative changes are seen. There is a large amount of stool throughout the colon. There is stool in the ascending, transverse, descending colon as well as in the rectum. This is compatible with severe constipation. Could the pa tient's abdominal pain be due to this? No evidence of obstruction seen. No dilated loops of bowel se en. No obvious evidence of obvious calcification seen. IMPRESSION: Large amount of stool in the colon. POS: [facility]
--- NOTE | 2017-04-07 23:55 | RAD ---
AP VIEW CHEST: 04/07/17 HISTORY: Abdominal pain. AP view chest obtained on 04/07/17. Comparison made to previous exam from 03/29/17. AP view chest demonstrates intracardiac defibrillator. Calcification of the aorta seen. There appear s to be endovascular stent over the central cardiac region. No evidence of effusions, pneumonia or pneumothorax seen. IMPRESSION: Unremarkable AP view chest. POS: [facility]
== END 2017-04-08 01:20 | disposition home or self-care (01) ==
LOC: ERS 21:37
DX: N39.0 Urinary tract infection, site not specified (principal); K59.00 Constipation, unspecified; I11.0 Hypertensive heart disease with heart failure; I50.9 Heart failure, unspecified; I48.91 Unspecified atrial fibrillation; E11.9 Type 2 diabetes mellitus without complications; E03.9 Hypothyroidism, unspecified; E78.5 Hyperlipidemia, unspecified; F41.9 Anxiety disorder, unspecified; F32.9 Major depressive disorder, single episode, unspecified; Z87.891 Personal history of nicotine dependence
CPT/HCPCS: 71010; 74000; 81003; 81015

== ENCOUNTER 2017-04-22 19:48 | Emergency (ER) | payer MEDICARE, OTHER ==
[2017-04-22 20:35] LABS: #Eosinphils 0.1 thou/uL (0.0-0.7); #Lymphocytes 0.8 thou/uL (1.20-3.40); #Monocytes 0.5 thou/uL (0.11-0.59); %Basophils 0.5 % (0.0-1.0); %Eosinophils 2.5 % (0.0-10.0); %Lymphocytes 18.5 % (21.0-51.0); %Monocytes 11.4 % (0.0-10.0); Hematocrit 26.9 % (42.0-52.0); Mean Platelet Volume 6.2 fL (7.4-10.4); Red Blood Cell (RBC) Count 2.79 mill/uL (4.70-6.10); White Blood Cell (WBC) Count 4.5 thou/uL (4.8-10.8)
[2017-04-22 20:46] LABS: ALT (SGPT) 14 U/L (8-55); AST (SGOT) 19 U/L (5-34); Alkaline Phosphatase 77 U/L (40-150); Anion Gap 13 mmol/L (10-20); BUN (Urea Nitrogen) 19 mg/dL (8.4-25.7); Bilirubin, Total 0.3 mg/dL (0.2-1.2); Calc. Creatinine Clearance 0 mL/min (70-130); Calcium 10.5 mg/dL (7.8-10.44); Carbon Dioxide 31 mmol/L (23-31); Chloride 91 mmol/L (98-107); Estimated GFR-MDRD 45; Globulin 3.7 g/dL (2.4-3.5); Protein, Total 7.6 g/dL (5.8-8.1)
[2017-04-22 23:53] LABS: Hematocrit 26.2 % (42.0-52.0)
== END 2017-04-23 04:33 | disposition home or self-care (01) ==
LOC: ERS 19:48
DX: D50.0 Iron deficiency anemia secondary to blood loss (chronic) (principal); I48.91 Unspecified atrial fibrillation; E11.9 Type 2 diabetes mellitus without complications; E03.9 Hypothyroidism, unspecified; E78.5 Hyperlipidemia, unspecified; I11.0 Hypertensive heart disease with heart failure; I50.9 Heart failure, unspecified; F41.9 Anxiety disorder, unspecified; F32.9 Major depressive disorder, single episode, unspecified; Z87.891 Personal history of nicotine dependence; Z79.84 Long term (current) use of oral hypoglycemic drugs; Z79.899 Other long term (current) drug therapy
CPT/HCPCS: 36430; 80053; 82274; 85014; 85018; 85025; 86850; 86900; 86901; 86920; 99285; P9016; 36415

== ENCOUNTER 2017-05-20 14:18 | Inpatient (IN) | payer MEDICARE, OTHER ==
[2017-05-20 14:50] LABS: #Lymphocytes 1.1 thou/uL (1.20-3.40); #Monocytes 0.4 thou/uL (0.11-0.59); #Neutrophils 3.2 thou/uL (1.40-6.50); %Basophils 0.3 % (0.0-1.0); %Eosinophils 0.7 % (0.0-10.0); %Lymphocytes 22.7 % (21.0-51.0); Hematocrit 35.9 % (42.0-52.0); Mean Platelet Volume 6.3 fL (7.4-10.4); Red Blood Cell (RBC) Count 3.85 mill/uL (4.70-6.10); White Blood Cell (WBC) Count 4.8 thou/uL (4.8-10.8)
[2017-05-20 15:12] LABS: ALT (SGPT) 21 U/L (8-55); AST (SGOT) 19 U/L (5-34); Alkaline Phosphatase 60 U/L (40-150); Anion Gap 16 mmol/L (10-20); BUN (Urea Nitrogen) 24 mg/dL (8.4-25.7); Bilirubin, Total 0.4 mg/dL (0.2-1.2); CK (CPK) 45 U/L (30-200); Calc. Creatinine Clearance 0 mL/min (70-130); Calcium 9.8 mg/dL (7.8-10.44); Carbon Dioxide 25 mmol/L (23-31); Chloride 96 mmol/L (98-107); Estimated GFR-MDRD 40; Globulin 3.2 g/dL (2.4-3.5); Lipase 13 U/L (8-78)
[2017-05-20 15:17] LABS: Troponin I 0.032 ng/mL (< 0.028)
[2017-05-20 15:32] LABS: Bilirubin Negative (Negative); Blood, Urine Negative (Negative); Glucose, Urine (Dipstick) Negative (Negative); Ketone, Urine Negative (Negative); Nitrite Negative (Negative); Protein, Urine (Dipstick) Negative (Neg-Trace)
--- NOTE | 2017-05-20 15:38 | RAD ---
FRONTAL VIEW CHEST: COMPARISON: 04/07/17. INDICATION: Chest pain. FINDINGS: There is interstitial prominence of each lung. No consolidation or effusion of significance evident. There is mild pleural-based irregularity of each lower chest which may be on the basis of pleural t hickening. Cardiomediastinal silhouette is grossly stable. IMPRESSION: Interstitial opacification of each lung may be on the basis of edema or, alternatively, interstitial lung disease. Recommend clinical correlation and, if necessary, imaging followup may be obtained. POS: [facility]
[2017-05-20] MEDS ORDERED: Potassium Chloride 20 MEQ TAB ONE (16:37)
[2017-05-20 18:22] LABS: Troponin I 0.039 ng/mL (< 0.028)
[2017-05-20] MEDS ORDERED: Ondansetron HCl/PF 4 MG/2 ML Vial IVP PRN ×2 (19:27→19:59)
[2017-05-20] MEDS ORDERED: Bisacodyl 5 MG TAB PO PRN (19:27)
[2017-05-20] MEDS ORDERED: Ondansetron ODT 4 MG TAB PO PRN (19:27)
[2017-05-20] MEDS ORDERED: Ondansetron ODT 4 MG TAB SL PRN (19:59)
[2017-05-20] MEDS ORDERED: Sodium Chloride 0.9% 10 ML ONE ×2 (20:11→20:17)
[2017-05-20] MEDS: Acetaminophen 325 MG TAB PO PRN (21:04)
[2017-05-20] MEDS: Docusate 100 MG CAP PO SCH (21:05)
[2017-05-20] MEDS: Famotidine 20 MG TAB PO SCH (21:05)
[2017-05-20 21:32] LABS: Troponin I 0.048 ng/mL (< 0.028)
[2017-05-20] MEDS ORDERED: Dextrose 5% in Water 1,000 ML IV PRN (21:36)
[2017-05-20] MEDS ORDERED: Dextrose 50% Abboject 50 ML SYRINGE IVP PRN (21:36)
--- NOTE | 2017-05-20 21:39 | HP ---
PRIMARY CARE PHYSICIAN: Moise Estrada MD CHIEF COMPLAINT: Fatigue, nausea, and dyspnea on exertion. HISTORY OF PRESENT ILLNESS: This is an 82-year-old white male who was recently hospitalized for sync ope with a fracture of the right ankle. He has been doing okay at home and his ankle has been recove ring; however, the patient has noticed over the last couple of weeks and definitely over the last few days that he has become increasingly fatigued. He gets more short of breath. He gets more dizzier upon standing and he gets nausea with dizziness. The patient also has a history of severe coronary a rtery disease with chest pain on and off chronically. He has had some chest pain over the last 3 day s on and off. Has not had to take any nitroglycerin for it, it resolved spontaneously, it usually riggs ppens with exercise. The patient was noted to be more pale and weak. Per home health nurse, he was told to come to the ER to get evaluated. In the ER, the patient was found to have an indeterminate t roponin. He has also noted to have some increased interstitial density on chest x-ray concerning for possible edema. The patient is not having any active chest pain. There was a concern for possible worsening of his cardiomyopathy and congestive failure and so he is being put on observation in the ospital. PAST MEDICAL HISTORY: 1. Severe aortic stenosis requiring aortic valve replacement. 2. Coronary artery disease, status post coronary artery bypass grafting and multiple heart attacks. 3. Diabetes mellitus type 2. 4. Hypertension. 5. Dyslipidemia. 6. Paroxysmal atrial fibrillation. 7. Benign prostatic hyperplasia. 8. Propensity for orthostatic hypotension preventing the use of ANTONY inhibitors and ARBs. 9. Cardiomyopathy with an ejection fraction of 45%-50%. PAST SURGICAL HISTORY: 1. Transcutaneous aortic valve replacement. 2. Pacemaker/defibrillator placement. The patient is supposed to have his battery changed out 2 mon ths ago, but he was hospitalized instead. He has not gone to get it done since then and I have told he absolutely has to have it by the beginning of June. He does not currently have a visit sched ed to do that. 3. Colostomy. 4. Back surgery. 5. Tonsillectomy. 6. Hypothyroidism diagnosed 2 months ago and started on levothyroxine at that point. PAST PSYCHIATRIC HISTORY: Anxiety and depression. SOCIAL HISTORY: The patient is and lives at home with his , former smoker. No alcohol o r illicit drug use. FAMILY HISTORY: Positive for heart problems, but no premature coronary artery disease, stroke, or ca ncer. ALLERGIES: CODEINE. CURRENT MEDICATIONS: The patient does not have his medication list with him at this point. We do riggs ve his discharge medication list from a month ago. This includes: 1. Multivitamin daily. 2. Digoxin 0.125 mg daily. 3. Plavix 75 mg daily. 4. Coreg 3.125 mg daily. 5. Calcium 800 mg twice a day. 6. Amiodarone 200 mg twice a day. 7. Xanax 0.5 mg 3 times a day as needed. 8. Januvia 50 mg daily. 9. Metformin 1000 mg daily. 10. Zantac 150 mg daily. 11. Vitamin B complex daily. 12. Flomax 0.4 mg daily. 13. Aldactone 12.5 mg twice a day. 14. Crestor 10 mg daily. 15. Ranexa 1000 mg twice a day. 16. Glimepiride 4 mg twice a day. 17. Lasix 40 mg daily. 18. Ferrous sulfate 325 mg twice a day. 19. Trazodone 20 mg daily. 20. Levothyroxine 50 mcg daily. 21. Zofran as needed. 22. Milk of Magnesia as needed. 23. Lactulose as needed. 24. [place] as needed. REVIEW OF SYSTEMS: Constitutional: No fevers. He does get chilled easily over the last 2 years but nothing recent. EYES: He has doubled peripheral vision on and off chronically. No new symptoms th ere. No blurred vision. ENT: He has chronic nasal allergies that come and go, nothing worsened rec ently. No sore throat. Pulmonary: He has a cough with postnasal drip on and off, nothing worsened recently. No shortness of breath or chest tightness. Cardiac: See HPI. Gastrointestinal: No abdominal pain. He does have nausea when he stands up, it is worsening recently, none currently, lying down in the bed, no vomiting, no diarrhea. He does have chronic constipation, no hematochezia or hematemesis. He does have dark black bowel movements since starting iron for his anemia. Genitourinary: No dysuria or hematuria. He does have some difficult y voiding that is chronic. Musculoskeletal: His right ankle is improving. He is able to ambulate b alejandro on it. No other acute musculoskeletal complaints. SKIN: No acute rashes or other lesions. He does have chronic itching of his trunk for the last year on and off. PHYSICAL EXAMINATION: VITAL SIGNS: Blood pressure 121/65, pulse 88, respirations 20, O2 sat 96% on room air, temperature 9 8.2. GENERAL: This is a well-developed, well-nourished white male, in no apparent distress. HEENT: Pupils equal, round, and react to light. Oropharynx is clear without lesions, erythema, or e xudate. NECK: Supple, no adenopathy, no thyroid nodules or enlargement, no JVD. HEART: Regular rate and rhythm, no murmurs, rubs, or gallops. LUNGS: Clear to auscultation bilaterally, no wheezes, crackles, or rhonchi. ABDOMEN: Soft, nontender to palpation, normoactive bowel sounds, no hepatosplenomegaly or other mass es. EXTREMITIES: The patient does have some trace lower extremity edema bilaterally. He does have a bra ce on his right ankle, this is in place. He has intact sensation and movement in his distal extremit ies. SKIN: No rashes or lesions noted. NEUROLOGIC: He has intact sensation throughout and no lateralizing signs. No facial droop. LABORATORY DATA: CBC is notable only for a hemoglobin of 11.8, which is actually up from 04/2017 whe n it was 8.4, significantly improved, hematocrit is 35.9, platelet count normal. Complete metabolic panel was notable for a sodium of 134, which is actually better than back in 04/2017, potassium is 3. 2, which is down from previously; usually it is normal. Creatinine is 1.65, which is slightly up fro m 04/2017 that was 1.5, but it has bumped higher than that during the last hospitalization. Troponin is 0.032, which is actually comparable with previous troponins during his last hospitalization. The remainder of his liver function tests is normal. His TSH is 13, but actually is some markedly decre ased from 03/2017 when it was 73. Urinalysis is normal. IMAGING STUDIES: Chest x-ray: I did review the chest x-ray along with the radiologist's report. It does show some interstitial prominence in both the lungs consistent with edema versus interstitial l grey disease, but no massive pulmonary edema or congestive failure visible. EKG: The patient's EKG d oes show a biventricular pacer that is capturing and is comparable with previous EKGs. ASSESSMENT: 1. Increased dyspnea on exertion and fatigue along with his intermittent angina, concern for worseni ng congestive failure. We will get a brain natriuretic peptide. If this is elevated, significantly, we will get an echocardiogram to recheck his ejection fraction. If the brain natriuretic peptide is comparable with previous and his cardiac markers remain unchanged, then he can probably go home in t he morning. 2. History of cardiomyopathy. We will continue the patient's home Lasix and beta blockers. 3. Coronary artery disease. We will continue the patient's home medications and check serial tropon ins. 4. Gastrointestinal prophylaxis. We will put the patient on Pepcid while in the hospital. 5. Hypothyroidism. The patient actually has a markedly improved TSH. We will continue his levothyr oxine; it is probably too early to decide if it is safe to lower the dose or not. 6. Deep venous thrombosis prophylaxis. We will put the patient on Lovenox low dose while he was in the hospital. 7. CODE STATUS: The patient is a full code. Should he be incapacitated, his would be his [facility] decision maker, her name is Karon Ramsay.
[2017-05-20] MEDS ORDERED: ALPRAZolam 0.5 MG TAB PO SCH (21:45)
[2017-05-21 06:44] LABS: Hematocrit 33.7 % (42.0-52.0); Mean Platelet Volume 6.4 fL (7.4-10.4); Neutrophil 69 % (42-75); Red Blood Cell (RBC) Count 3.58 mill/uL (4.70-6.10); White Blood Cell (WBC) Count 4.8 thou/uL (4.8-10.8)
[2017-05-21 07:02] LABS: Anion Gap 14 mmol/L (10-20); BUN (Urea Nitrogen) 26 mg/dL (8.4-25.7); Calc. Creatinine Clearance 42 mL/min (70-130); Calcium 9.4 mg/dL (7.8-10.44); Carbon Dioxide 26 mmol/L (23-31); Chloride 99 mmol/L (98-107); Estimated GFR-MDRD 48
[2017-05-21] MEDS ORDERED: diphenhydrAMINE 25 MG CAP PO PRN (08:12)
--- NOTE | 2017-05-21 08:12 | PDOC.PN ---
- Subjective Encounter Start Date: 05/21/17 Encounter Start Time: 09:00 Subjective: Patient unchanged. Still with significant SOB with any activity. Dizzy with -: standing. Trouble urinating unless can stand up. - Objective Resuscitation Status: Resuscitation Status FULL:Full Resuscitation MAR Reviewed: Yes Vital Signs & Weight: Vital Signs (12 hours) Temp Pulse Resp BP BP Pulse Ox 05/21/17 04:34 98.1 F 90 20 140/68 100 05/20/17 23:56 98.0 F 86 16 118/65 98 05/20/17 20:32 97.5 F L 88 20 141/73 H 100 Weight Weight 161 lb 12.8 oz I&O: 05/20/17 05/21/17 05/22/17 06:59 06:59 06:59 Intake Total 310 Output Total 375 Balance -65 Result Diagrams: 05/21/17 05:39 05/21/17 05:38 Additional Labs: Accuchecks 05/21/17 05/20/17 06:02 21:01 POC Glucose 174 H 122 H Phys Exam - Physical Examination Constitutional: NAD HEENT: moist MMs Respiratory: no wheezing, no rhonchi minimal rales in bases Cardiovascular: RRR Gastrointestinal: soft, positive bowel sounds Neurological: non-focal, moves all 4 limbs Psychiatric: normal affect, A&O x 3 Dx/Plan (1) Acute on chronic systolic (congestive) heart failure Code(s): I50.23 - ACUTE ON CHRONIC SYSTOLIC (CONGESTIVE) HEART FAILURE Status : Acute Plan: BNP up 100 points since last admit. Will switch to inpatient, IV Lasix, consult Dr. Donohue. Will need pacemaker battery changed out as well. Comment: s/p AICD.EF 35-40%.on Coreg.No ANTONY-I/ARB d/t Hypotension. On Spironolactone. (2) CAD (coronary artery disease) Code(s): I25.10 - ATHSCL HEART DISEASE OF [place] CORONARY ARTERY W/O ANG PCTRS Status: Chronic Comment: ASA,BB (3) DM2 (diabetes mellitus, type 2) Status: Chronic Comment: on ISS (4) Orthostatic hypotension Code(s): I95.1 - ORTHOSTATIC HYPOTENSION Status: Chronic (5) BPH (benign prostatic hyperplasia) Code(s): N40.0 - BENIGN PROSTATIC HYPERPLASIA WITHOUT LOWER URINRY TRACT SYMP Status: Chronic Qualifiers: Lower urinary tract symptom presence: symptoms present Plan: Residual 150 after voiding lying down. Patient too dizzy to stand and void. If worsens may need cortez though would prefer to avoid infectious risk if possible. - Plan cont current plan of care, PT/OT, geriatric social worker * . - Discharge Day Encounter end time: 09:30
[2017-05-21] MEDS ORDERED: Calcium Carbonate 500 MG TAB PO SCH (09:00)
[2017-05-21] MEDS ORDERED: Non-Formulary Item 1 EACH (Multivitamin [Daily Multiple Vitamin] 1 EACH) PO SCH (09:00)
[2017-05-21] MEDS ORDERED: Non-Formulary Item 1 EACH (Clopidogrel Bisulfate [Clopidogrel] 75 MG) PO SCH (09:00)
[2017-05-21] MEDS ORDERED: Non-Formulary Item 1 EACH (Amiodarone Hcl [Amiodarone Hcl] 200 MG) PO SCH (09:00)
[2017-05-21] MEDS ORDERED: Non-Formulary Item 1 EACH (Vitamin B Complex [Vitamin B Complex] 1 EACH) PO SCH (09:00)
[2017-05-21] MEDS ORDERED: CARVEDILOL 3.125 MG PO SCH (09:00)
[2017-05-21] MEDS ORDERED: Non-Formulary Item 1 EACH (Cholecalciferol (Vitamin D3) [Vitamin D3] 1,000 UNIT) PO SCH (09:00)
[2017-05-21] MEDS ORDERED: Furosemide 40 MG TAB PO SCH (09:00)
[2017-05-21] MEDS: Enoxaparin Sodium 30 MG/0.3 ML SYRINGE SC SCH (10:04)
[2017-05-21] MEDS: Potassium Chloride 20 MEQ TAB PO SCH ×2 (10:05→17:35)
[2017-05-21] MEDS: Ferrous Sulfate 325 MG TAB PO SCH ×2 (10:05→21:07)
[2017-05-21] MEDS: Docusate 100 MG CAP PO SCH ×2 (10:05→21:08)
[2017-05-21] MEDS: Multivit, Therapeutic 1 TAB PO SCH ×2 (10:05→21:11)
[2017-05-21] MEDS: Clopidogrel Bisulfate 75 MG TAB PO SCH (10:06)
[2017-05-21] MEDS: Calcium Carbonate 600 MG TAB PO SCH (10:06)
[2017-05-21] MEDS: Digoxin 0.125 MG TAB PO SCH (10:06)
[2017-05-21] MEDS: Carvedilol 3.125 MG TAB PO SCH ×2 (10:06→21:10)
[2017-05-21] MEDS: Stress 600 With Zinc 1 TAB PO SCH (10:15)
[2017-05-21] MEDS: Spironolactone 25 MG TAB PO SCH ×2 (10:16→21:08)
[2017-05-21] MEDS: Furosemide 40 MG/4 ML VIAL SLOW IVP SCH (14:58)
--- NOTE | 2017-05-21 16:32 | CON ---
CARDIOLOGY CONSULTATION NOTE DATE OF CONSULTATION: 05/21/2017 REASON FOR CONSULTATION: AICD at [facility]. HISTORY OF PRESENT ILLNESS: Mr. Ramsay is a pleasant 82-year-old white gentleman who comes to the hosp ital for fatigue, nausea and some shortness of breath. He was admitted for possible heart failure ex acerbation. He had followed with Dr. Ramsay in the last few months after he did an aortic valve replac ement through transcutaneous approach. He never really regained much strength back. He was severely deconditioned and has been struggling with this. He was found to have his defibrillator at end of r eplacement interval ([facility]) and this was back in March and was scheduled to have it done the day he w as headed over to get it done, he fell and broke his ankle and could not get this replaced. Currentl y, his pacemaker should need to be replaced before 06/20. Otherwise, no other issues for now. PAST MEDICAL HISTORY: 1. Severe aortic stenosis, status post TAVR. 2. Coronary artery disease, status post bypass grafting. 3. Type 2 diabetes. 4. Hypertension. 5. Hyperlipidemia. 6. Paroxysmal AFib. 7. Benign prostatic hypertrophy. 8. Orthostatic hypotension, preventing ANTONY or ARB use. 9. Cardiomyopathy, ejection fraction of 45% to 50%. PAST SURGICAL HISTORY: 1. TAVR. 2. Pacemaker AICD placement. 3. Colostomy. 4. Bacteria. 5. Tonsillectomy. SOCIAL HISTORY: No alcohol, tobacco or drugs. Former smoker. FAMILY HISTORY: Noncontributory. ALLERGIES: CODEINE. OUTPATIENT MEDICATIONS: Reviewed 1. Multivitamins. 2. Digoxin 0.125 mg a day. 3. Plavix 75 mg a day. 4. Coreg 3.125 mg b.i.d. 5. Calcium. 6. Amiodarone 200 mg twice a day. 7. Xanax. 8. Januvia. 9. Metformin 1000 mg a day. 10. Zantac 150 mg b.i.d. 11. Vitamin B. 12. Flomax. 13. Aldactone 1 tab b.i.d. 14. Crestor 10 mg a day. 15. Ranexa 1000 mg b.i.d. 16. Glimepiride. 17. Lasix 40 mg b.i.d. 18. Ferrous sulfate. 19. Trazodone. 20. Levothyroxine 50 mcg a day. 21. Zofran. 22. Milk of magnesia. 23. Lactulose. 24. [place]. REVIEW OF SYSTEMS: A 12-point review of systems was done and is all negative unless stated in the hi story of present illness. PHYSICAL EXAMINATION: VITAL SIGNS: Temperature 97.9, pulse 89, respiration rate 18, satting 100% on 2 liters and blood pre ssure 120/61. GENERAL: Awake, alert and oriented x3, in no distress. HEENT: Normocephalic, atraumatic. NECK: Supple. LUNGS: Clear anteriorly. CARDIOVASCULAR: S1 and S2. No S3 or S4. No murmurs or rubs. ABDOMEN: Soft. Positive bowel sounds. EXTREMITIES: Trace edema. SKIN: Warm and dry. LABORATORY AND IMAGING WORK: Reviewed. BUN is 22, creatinine 1.42, GFR of 48, potassium was 3.2. T roponin has been indeterminate point of 3.3 0.04. TSH was 13, this was 13, albumin of 3.8. BNP of 2 39. UA was unremarkable. CBC with mildly decreased hemoglobin 11.1, platelets of 226. ASSESSMENT AND PLAN: 1. Shortness of breath: His BNP is really not that increased. I would look into his thyroid levels as he is on amiodarone he could be needing more thyroid medication than he has been prescribed. 2. Implantable cardioverter-defibrillator at end of replacement interval. He will need this replace d. This could be done inpatient or outpatient. I will talk somewhat see what her wishes are. 3. Coronary artery disease, stable at this time. 4. Ischemic cardiomyopathy, stable at this time. Thank you for letting us participate in the care of your patient. We will follow.
[2017-05-21] MEDS: ALPRAZolam 0.5 MG TAB PO PRN (17:35)
[2017-05-21] MEDS: Alogliptin Benzoate 6.25 MG TABLET PO SCH (21:06)
[2017-05-21] MEDS: Tamsulosin HCl 0.4 MG CAP PO SCH (21:11)
[2017-05-21] MEDS: Famotidine 20 MG TAB PO SCH (21:12)
[2017-05-22] MEDS: ALPRAZolam 0.5 MG TAB PO PRN ×3 (01:56→21:19)
[2017-05-22] MEDS: Furosemide 40 MG/4 ML VIAL SLOW IVP SCH (05:26)
[2017-05-22] MEDS: Levothyroxine Sodium 100 MCG TAB PO SCH (05:26)
[2017-05-22 05:57] VITALS: BMI 26.0
[2017-05-22 06:32] LABS: Troponin I 0.053 ng/mL (< 0.028)
[2017-05-22 07:58] LABS: #Lymphocytes 1.5 thou/uL (1.20-3.40); #Monocytes 0.5 thou/uL (0.11-0.59); #Neutrophils 3.3 thou/uL (1.40-6.50); %Basophils 0.4 % (0.0-1.0); %Eosinophils 0.8 % (0.0-10.0); %Lymphocytes 28.7 % (21.0-51.0); %Monocytes 8.8 % (0.0-10.0); Hematocrit 36.5 % (42.0-52.0); Red Blood Cell (RBC) Count 3.86 mill/uL (4.70-6.10); White Blood Cell (WBC) Count 5.4 thou/uL (4.8-10.8)
[2017-05-22 08:27] LABS: Anion Gap 13 mmol/L (10-20); BUN (Urea Nitrogen) 21 mg/dL (8.4-25.7); Calc. Creatinine Clearance 39 mL/min (70-130); Calcium 9.7 mg/dL (7.8-10.44); Carbon Dioxide 27 mmol/L (23-31); Chloride 98 mmol/L (98-107); Estimated GFR-MDRD 45
[2017-05-22 08:46] LABS: Free T3 1.48 pg/mL (1.71-3.71)
[2017-05-22] MEDS: Multivit, Therapeutic 1 TAB PO SCH ×2 (09:41→21:08)
[2017-05-22] MEDS: Clopidogrel Bisulfate 75 MG TAB PO SCH (09:41)
[2017-05-22] MEDS: Potassium Chloride 20 MEQ TAB PO SCH ×2 (09:41→16:36)
[2017-05-22] MEDS: Senokot S 8.6-50 MG TAB PO SCH ×2 (09:41→21:58)
[2017-05-22] MEDS: Ferrous Sulfate 325 MG TAB PO SCH ×2 (09:41→21:07)
[2017-05-22] MEDS: Calcium Carbonate 600 MG TAB PO SCH (09:41)
[2017-05-22] MEDS: Carvedilol 3.125 MG TAB PO SCH ×2 (09:42→22:00)
[2017-05-22] MEDS: Spironolactone 25 MG TAB PO SCH ×2 (09:42→21:08)
[2017-05-22] MEDS: Digoxin 0.125 MG TAB PO SCH (09:42)
[2017-05-22] MEDS: Enoxaparin Sodium 30 MG/0.3 ML SYRINGE SC SCH (09:43)
[2017-05-22] MEDS: Acetaminophen 325 MG TAB PO PRN (09:52)
[2017-05-22] MEDS: Stress 600 With Zinc 1 TAB PO SCH (09:52)
--- NOTE | 2017-05-22 10:57 | PDOC.PN ---
- Subjective Encounter Start Date: 05/22/17 Encounter Start Time: 07:45 Subjective: no sob, feels better - Objective MAR Reviewed: Yes Vital Signs & Weight: Vital Signs (12 hours) Temp Pulse Resp BP BP Pulse Ox 05/22/17 09:42 73 05/22/17 04:25 97.1 F L 82 20 133/67 100 05/21/17 23:41 97.4 F L 69 20 94/61 97 Weight Admit Weight 161 lb 12.8 oz Weight 161 lb 3.2 oz I&O: 05/21/17 05/22/17 05/23/17 06:59 06:59 06:59 Intake Total 214 Output Total 275 Balance -61 Result Diagrams: 05/22/17 07:51 05/22/17 07:51 Additional Labs: Accuchecks 05/22/17 05/21/17 05/21/17 06:04 20:08 16:42 POC Glucose 190 H 167 H 172 H 05/21/17 10:48 POC Glucose 193 H Phys Exam - Physical Examination HEENT: PERRLA, moist MMs Neck: no JVD, supple Respiratory: no wheezing, no rales Cardiovascular: RRR, no significant murmur Gastrointestinal: soft, non-tender, positive bowel sounds Musculoskeletal: no edema, pulses present chronic right medial ankle ulcer Neurological: non-focal, moves all 4 limbs Dx/Plan (1) Acute on chronic systolic (congestive) heart failure Code(s): I50.23 - ACUTE ON CHRONIC SYSTOLIC (CONGESTIVE) HEART FAILURE Status : Acute Comment: s/p AICD.EF 35-40%.on Coreg.No ANTONY-I/ARB d/t Hypotension. On Spironolactone. (2) BPH (benign prostatic hyperplasia) Code(s): N40.0 - BENIGN PROSTATIC HYPERPLASIA WITHOUT LOWER URINRY TRACT SYMP Status: Chronic Qualifiers: Lower urinary tract symptom presence: symptoms present (3) Orthostatic hypotension Code(s): I95.1 - ORTHOSTATIC HYPOTENSION Status: Chronic (4) Fracture of malleolus, right ankle, closed Code(s): S82.891A - OTH FRACTURE OF RIGHT LOWER LEG, INIT FOR CLOS FX Status: Acute Qualifiers: Encounter type: subsequent encounter Comment: h/o ORIF (5) Hypothyroid Code(s): E03.9 - HYPOTHYROIDISM, UNSPECIFIED Status: Acute Qualifiers: Hypothyroidism type: unspecified Qualified Code(s): E03.9 - Hypothyroidism , unspecified (6) CAD (coronary artery disease) Code(s): I25.10 - ATHSCL HEART DISEASE OF [place] CORONARY ARTERY W/O ANG PCTRS Status: Chronic Qualifiers: Coronary Disease-Associated Artery/Lesion type: bypass graft [place] vs. transplanted heart: [place] heart Associated angina: without angina Qualified Code(s): I25.810 - Atherosclerosis of coronary artery bypass graft(s) without angina pectoris Comment: ASA,BB (7) Cardiomyopathy Code(s): I42.9 - CARDIOMYOPATHY, UNSPECIFIED Status: Chronic Qualifiers: Comment: s/p AICD.EF 45%.on Coreg.No ANTONY-I/ARB d/t Hypotension. On Spironolactone. (8) DM2 (diabetes mellitus, type 2) Status: Chronic Qualifiers: Diabetes mellitus complication status: with unspecified complications Diabetes mellitus care home insulin use: without care home use Qualified Code( s): E11.8 - Type 2 diabetes mellitus with unspecified complications Comment: on ISS (9) GERD (gastroesophageal reflux disease) Code(s): K21.9 - GASTRO-ESOPHAGEAL REFLUX DISEASE WITHOUT ESOPHAGITIS Status: Chronic Qualifiers: Esophagitis presence: esophagitis presence not specified Qualified Code(s) : K21.9 - Gastro-esophageal reflux disease without esophagitis (10) Hypertension Code(s): I10 - ESSENTIAL (PRIMARY) HYPERTENSION Status: Chronic Qualifiers: Hypertension type: essential hypertension Qualified Code(s): I10 - Essential (primary) hypertension Comment: Labile hypertension (11) PAF (paroxysmal atrial fibrillation) Code(s): I48.0 - PAROXYSMAL ATRIAL FIBRILLATION Status: Chronic Comment: on Coreg,Digoxin,amiodarone.rate controlled - Plan change lasix to po daily -: recent diagnosis of hypothyroidism, free T3,free T4 are stable -: to amb as tolerated (weight bearing per ortho advice) -: needs battery change for AICD -: dc plan based on PT eval * . Review of Systems - Medications/Allergies Allergies/Adverse Reactions: Allergies Allergy/AdvReac Type Severity Reaction Status Date / Time codeine [Codeine] Allergy Mild Verified 08/25/16 12:45 Medications: Current Medications Acetaminophen (Tylenol) 650 mg PO Q4H PRN PRN Reason: Headache/Fever or Pain Last Admin: 05/22/17 09:52 Dose: 650 mg Hydrocodone Bitart/Acetaminophen ([place] 5/325) 1 tab PO Q4H PRN PRN Reason: Headache, Pain Alogliptin Benzoate (Alogliptin) 12.5 mg PO HS COUNTS INCLUDE 234 BEDS AT THE [facility] Last Admin: 05/21/17 21:06 Dose: 12.5 mg Alprazolam (Xanax) 0.5 mg PO TID PRN PRN Reason: Anxiety Last Admin: 05/22/17 09:52 Dose: 0.5 mg Amiodarone HCl (Cordarone) 200 mg PO BID COUNTS INCLUDE 234 BEDS AT THE [facility] Last Admin: 05/22/17 09:43 Dose: 200 mg Bisacodyl (Dulcolax) 10 mg PO DAILYPRN PRN PRN Reason: Constipation Calcium Carbonate (Caltrate) 600 mg PO DAILY COUNTS INCLUDE 234 BEDS AT THE [facility] Last Admin: 05/22/17 09:41 Dose: 600 mg Carvedilol (Coreg) 3.125 mg PO BID COUNTS INCLUDE 234 BEDS AT THE [facility] Last Admin: 05/22/17 09:42 Dose: 3.125 mg Cholecalciferol (Vitamin D3) 1,000 units PO DAILY COUNTS INCLUDE 234 BEDS AT THE [facility] Last Admin: 05/22/17 09:41 Dose: 1,000 units Clopidogrel Bisulfate (Plavix) 75 mg PO DAILY COUNTS INCLUDE 234 BEDS AT THE [facility] Last Admin: 05/22/17 09:41 Dose: 75 mg Dextrose/Water (Dextrose 50%) 25 gm IVP PRN PRN PRN Reason: HYPOGLYCEMIA PROTOCOL Digoxin (Lanoxin) 0.125 mg PO DAILY COUNTS INCLUDE 234 BEDS AT THE [facility] Last Admin: 05/22/17 09:42 Dose: 0.125 mg Diphenhydramine HCl (Benadryl) 25 mg PO Q6H PRN PRN Reason: Itching Enoxaparin Sodium (Lovenox) 30 mg SC 0900 COUNTS INCLUDE 234 BEDS AT THE [facility] Last Admin: 05/22/17 09:43 Dose: 30 mg Famotidine (Pepcid) 20 mg PO Q24HR COUNTS INCLUDE 234 BEDS AT THE [facility] Last Admin: 05/21/17 21:12 Dose: 20 mg Ferrous Sulfate (Feosol) 325 mg PO BID COUNTS INCLUDE 234 BEDS AT THE [facility] Last Admin: 05/22/17 09:41 Dose: 325 mg Furosemide (Lasix) 40 mg PO DAILY COUNTS INCLUDE 234 BEDS AT THE [facility] Glucagon (Glucagon) 1 mg IM PRN PRN PRN Reason: HYPOGLYCEMIA PROTOCOL Dextrose/Water (D5w) 1,000 mls @ 0 mls/hr IV INF PRN; As Directed PRN Reason: HYPOGLYCEMIA PROTOCOL Insulin Human Lispro (Humalog) 0 units SC .MILD SLIDING SCALE PRN; Protocol PRN Reason: MILD SLIDING SCALE Insulin Human Lispro (Humalog) 0 units SC .BEDTIME SLIDING SC PRN; Protocol PRN Reason: BEDTIME SLIDING SCALE Levothyroxine Sodium (Synthroid) 100 mcg PO 0600 COUNTS INCLUDE 234 BEDS AT THE [facility] Last Admin: 05/22/17 05:26 Dose: 100 mcg Multivitamins (Theragran) 1 tab PO BID COUNTS INCLUDE 234 BEDS AT THE [facility] Last Admin: 05/22/17 09:41 Dose: 1 tab Multivitamins/Zinc (Stress 600 With Zinc) 1 tab PO DAILY COUNTS INCLUDE 234 BEDS AT THE [facility] Last Admin: 05/22/17 09:52 Dose: 1 tab Ondansetron HCl (Zofran Odt) 4 mg PO Q6H PRN PRN Reason: Nausea/Vomiting Ondansetron HCl (Zofran) 4 mg IVP Q6H PRN PRN Reason: Nausea/Vomiting Potassium Chloride (K-Dur) 20 meq PO BID-[facility] Last Admin: 05/22/17 09:41 Dose: 20 meq Ranolazine (Ranexa) 1,000 mg PO BID COUNTS INCLUDE 234 BEDS AT THE [facility] Last Admin: 05/22/17 09:42 Dose: 1,000 mg Rosuvastatin Calcium (Crestor) 10 mg PO [facility] Last Admin: 05/21/17 21:10 Dose: 10 mg Senna/Docusate Sodium (Senokot S) 1 tab PO BID COUNTS INCLUDE 234 BEDS AT THE [facility] Last Admin: 05/22/17 09:41 Dose: 1 tab Sodium Chloride (Flush - Normal Saline) 10 ml IVF Q12HR COUNTS INCLUDE 234 BEDS AT THE [facility] Last Admin: 05/22/17 05:26 Dose: 10 ml Sodium Chloride (Flush - Normal Saline) 10 ml IVF PRN PRN PRN Reason: Saline Flush Last Admin: 05/21/17 15:04 Dose: 10 ml Spironolactone (Aldactone) 12.5 mg PO BID COUNTS INCLUDE 234 BEDS AT THE [facility] Last Admin: 05/22/17 09:42 Dose: 12.5 mg Tamsulosin HCl (Flomax) 0.4 mg PO [facility] Last Admin: 05/21/17 21:11 Dose: 0.4 mg
[2017-05-22] MEDS: HumaLOG 300 UNITS/3 ML VIAL SC PRN ×3 (12:17→21:24)
--- NOTE | 2017-05-22 15:25 | PDOC.CTH ---
Cardiology Progress Note - Subjective No new issues. Doing well. - Objective Vital Signs Temp Pulse Pulse Pulse Pulse Pulse Resp 05/22/17 14:16 87 89 89 89 05/22/17 12:15 96.3 F L 85 14 05/22/17 09:42 73 05/22/17 09:30 96.3 F L 85 14 05/22/17 04:25 97.1 F L 82 20 BP BP BP BP BP BP Pulse Ox 05/22/17 14:16 92/50 L 82/46 L 63/42 L 123/57 L 05/22/17 12:15 110/62 100 05/22/17 09:42 05/22/17 09:30 112/60 99 05/22/17 04:25 133/67 100 Admit Weight 161 lb 12.8 oz Weight 161 lb 3.2 oz 05/21/17 05/22/17 05/23/17 06:59 06:59 06:59 Intake Total 214 Output Total 275 Balance -61 - Physical Examination General/Neuro: alert & oriented x3, NAD Neck: no JVD present Lungs: unlabored respirations Heart: RRR Abdomen: NT/ND Extremities: other: (no edema.) - Telemetry Telemetry Rhythm: AV paced. - Labs Result Diagrams: 05/22/17 07:51 05/22/17 07:51 Troponin/CKMB CK-MB (CK-2) 1.6 ng/mL (0-6.6) 05/20/17 14:43 Troponin I 0.053 ng/mL (< 0.028) H 05/22/17 05:47 - Assessment/Plan 1. Acute on chronic systolic heart failure. 2. BiV AICD at [facility]. PLAN: - EP consultation for generator change.
[2017-05-22] MEDS: HYDROcodone/Acetaminophen 5/325 mg Tablet PO PRN (19:27)
[2017-05-22] MEDS: Alogliptin Benzoate 6.25 MG TABLET PO SCH (21:06)
[2017-05-22] MEDS: Tamsulosin HCl 0.4 MG CAP PO SCH (21:08)
[2017-05-22] MEDS: Famotidine 20 MG TAB PO SCH (21:56)
[2017-05-23 05:46] LABS: Anion Gap 10 mmol/L (10-20); BUN (Urea Nitrogen) 22 mg/dL (8.4-25.7); Calc. Creatinine Clearance 38 mL/min (70-130); Calcium 9.8 mg/dL (7.8-10.44); Carbon Dioxide 28 mmol/L (23-31); Chloride 99 mmol/L (98-107); Estimated GFR-MDRD 43
[2017-05-23] MEDS: Levothyroxine Sodium 100 MCG TAB PO SCH (06:41)
[2017-05-23] MEDS: ALPRAZolam 0.5 MG TAB PO PRN ×2 (06:49→21:46)
[2017-05-23] MEDS: Multivit, Therapeutic 1 TAB PO SCH ×2 (08:30→21:47)
[2017-05-23] MEDS: Calcium Carbonate 600 MG TAB PO SCH (08:30)
[2017-05-23] MEDS: Clopidogrel Bisulfate 75 MG TAB PO SCH (08:30)
[2017-05-23] MEDS: Potassium Chloride 20 MEQ TAB PO SCH ×2 (08:31→18:00)
[2017-05-23] MEDS: Digoxin 0.125 MG TAB PO SCH (08:32)
[2017-05-23] MEDS: Stress 600 With Zinc 1 TAB PO SCH (08:32)
[2017-05-23] MEDS: Carvedilol 3.125 MG TAB PO SCH ×2 (08:32→21:46)
[2017-05-23] MEDS: Senokot S 8.6-50 MG TAB PO SCH ×2 (08:33→21:46)
[2017-05-23] MEDS: Ferrous Sulfate 325 MG TAB PO SCH ×2 (08:33→21:47)
[2017-05-23] MEDS: Spironolactone 25 MG TAB PO SCH (08:33)
[2017-05-23] MEDS: Enoxaparin Sodium 30 MG/0.3 ML SYRINGE SC SCH (08:34)
[2017-05-23] MEDS ORDERED: Furosemide 40 MG TAB PO SCH ×2 (09:00→10:00)
--- NOTE | 2017-05-23 09:17 | PRG ---
DATE OF SERVICE: 05/23/2017 PHYSICAL EXAMINATION: Mr. Ramsay is doing about the same. His says he has been going downhill fo r several months, progressively weaker and weaker. He is not having chest pain or pressure now. PHYSICAL EXAMINATION: VITAL SIGNS: Blood pressure 128/67, pulse 90. LUNGS: Clear. CARDIAC: Normal S1, S2. ASSESSMENT: 1. Pacemaker generator at [facility], suspect he may not be getting biventricular pacing at this time. 2. Previous transcutaneous aortic valve replacement. 3. Coronary artery disease. 4. Generalized debility. 5. Hypothyroidism. 6. Iron deficiency. PLAN: 1. Increased thyroid medicine. 2. Reduce furosemide, he has severe orthostatic hypotension, he may be volume depleted. 3. Check iron levels. 4. Have the defibrillator generator changed tomorrow.
--- NOTE | 2017-05-23 10:47 | PDOC.PN ---
- Subjective Encounter Start Date: 05/23/17 Encounter Start Time: 07:30 Subjective: no sob or chest pain or palpitations -: at bedside informs that he is still dizzy when he tries to get up -: wants ortho to see his leg, ?antibiotics - Objective MAR Reviewed: Yes Vital Signs & Weight: Vital Signs (12 hours) Temp Pulse Resp BP Pulse Ox 05/23/17 08:00 98 F 90 18 128/67 98 05/23/17 04:00 97.3 F L 82 18 122/63 98 05/23/17 01:02 98 05/23/17 00:00 97.6 F 86 16 121/74 98 Weight Admit Weight 161 lb 12.8 oz Weight 161 lb 3.2 oz I&O: 05/22/17 05/23/17 05/24/17 06:59 06:59 06:59 Intake Total 214 740 Output Total 275 1075 Balance -61 335 Result Diagrams: 05/22/17 07:51 05/23/17 05:01 Additional Labs: Accuchecks 05/23/17 05/22/17 05/22/17 05:33 20:21 15:26 POC Glucose 182 H 223 H 211 H 05/22/17 11:22 POC Glucose 187 H Phys Exam - Physical Examination HEENT: PERRLA, moist MMs Neck: no JVD, supple Respiratory: no wheezing, no rales Cardiovascular: RRR, no significant murmur Gastrointestinal: soft, non-tender, positive bowel sounds Musculoskeletal: no edema, pulses present Neurological: non-focal, moves all 4 limbs Dx/Plan (1) Acute on chronic systolic (congestive) heart failure Code(s): I50.23 - ACUTE ON CHRONIC SYSTOLIC (CONGESTIVE) HEART FAILURE Status : Acute Comment: s/p AICD.EF 45%.on Coreg.No ANTONY-I/ARB d/t Hypotension. On Spironolactone. (2) BPH (benign prostatic hyperplasia) Code(s): N40.0 - BENIGN PROSTATIC HYPERPLASIA WITHOUT LOWER URINRY TRACT SYMP Status: Chronic Qualifiers: Lower urinary tract symptom presence: symptoms present (3) Orthostatic hypotension Code(s): I95.1 - ORTHOSTATIC HYPOTENSION Status: Chronic (4) Fracture of malleolus, right ankle, closed Code(s): S82.891A - OTH FRACTURE OF RIGHT LOWER LEG, INIT FOR CLOS FX Status: Acute Qualifiers: Encounter type: subsequent encounter Comment: h/o ORIF (5) Hypothyroid Code(s): E03.9 - HYPOTHYROIDISM, UNSPECIFIED Status: Acute Qualifiers: Hypothyroidism type: unspecified Qualified Code(s): E03.9 - Hypothyroidism , unspecified (6) CAD (coronary artery disease) Code(s): I25.10 - ATHSCL HEART DISEASE OF [place] CORONARY ARTERY W/O ANG PCTRS Status: Chronic Qualifiers: Coronary Disease-Associated Artery/Lesion type: bypass graft [place] vs. transplanted heart: [place] heart Associated angina: without angina Qualified Code(s): I25.810 - Atherosclerosis of coronary artery bypass graft(s) without angina pectoris Comment: ASA,BB (7) Cardiomyopathy Code(s): I42.9 - CARDIOMYOPATHY, UNSPECIFIED Status: Chronic Qualifiers: Comment: s/p AICD.EF 45%.on Coreg.No ANTONY-I/ARB d/t Hypotension. On Spironolactone. (8) DM2 (diabetes mellitus, type 2) Status: Chronic Qualifiers: Diabetes mellitus complication status: with unspecified complications Diabetes mellitus snf insulin use: without terminal carman use Qualified Code( s): E11.8 - Type 2 diabetes mellitus with unspecified complications Comment: on ISS (9) GERD (gastroesophageal reflux disease) Code(s): K21.9 - GASTRO-ESOPHAGEAL REFLUX DISEASE WITHOUT ESOPHAGITIS Status: Chronic Qualifiers: Esophagitis presence: esophagitis presence not specified Qualified Code(s) : K21.9 - Gastro-esophageal reflux disease without esophagitis (10) Hypertension Code(s): I10 - ESSENTIAL (PRIMARY) HYPERTENSION Status: Chronic Qualifiers: Hypertension type: essential hypertension Qualified Code(s): I10 - Essential (primary) hypertension Comment: Labile hypertension (11) PAF (paroxysmal atrial fibrillation) Code(s): I48.0 - PAROXYSMAL ATRIAL FIBRILLATION Status: Chronic Comment: on Coreg,Digoxin,amiodarone.rate controlled - Plan will request consultation -: wound care is seeing his ankle, PT to mobilize -: orthostatic BP, reduce spironolactone to daily -: is on lasix 20mg, for AICD generator change today/am -: might need rehab? * . Review of Systems - Medications/Allergies Allergies/Adverse Reactions: Allergies Allergy/AdvReac Type Severity Reaction Status Date / Time codeine [Codeine] Allergy Mild Verified 08/25/16 12:45 Medications: Current Medications Acetaminophen (Tylenol) 650 mg PO Q4H PRN PRN Reason: Headache/Fever or Pain Last Admin: 05/22/17 09:52 Dose: 650 mg Hydrocodone Bitart/Acetaminophen ([place] 5/325) 1 tab PO Q4H PRN PRN Reason: Headache, Pain Last Admin: 05/22/17 19:27 Dose: 1 tab Alogliptin Benzoate (Alogliptin) 12.5 mg PO HS [facility] Last Admin: 05/22/17 21:06 Dose: 12.5 mg Alprazolam (Xanax) 0.5 mg PO TID PRN PRN Reason: Anxiety Last Admin: 05/23/17 06:49 Dose: 0.5 mg Amiodarone HCl (Cordarone) 200 mg PO DAILY [facility] Amiodarone HCl (Cordarone) 200 mg PO NOW [facility] Stop: 05/23/17 12:00 Bisacodyl (Dulcolax) 10 mg PO DAILYPRN PRN PRN Reason: Constipation Calcium Carbonate (Caltrate) 600 mg PO DAILY [facility] Last Admin: 05/22/17 09:41 Dose: 600 mg Carvedilol (Coreg) 3.125 mg PO BID [facility] Last Admin: 05/22/17 22:00 Dose: 3.125 mg Cholecalciferol (Vitamin D3) 1,000 units PO DAILY [facility] Last Admin: 05/22/17 09:41 Dose: 1,000 units Clopidogrel Bisulfate (Plavix) 75 mg PO DAILY [facility] Last Admin: 05/22/17 09:41 Dose: 75 mg Dextrose/Water (Dextrose 50%) 25 gm IVP PRN PRN PRN Reason: HYPOGLYCEMIA PROTOCOL Digoxin (Lanoxin) 0.125 mg PO DAILY [facility] Last Admin: 05/22/17 09:42 Dose: 0.125 mg Diphenhydramine HCl (Benadryl) 25 mg PO Q6H PRN PRN Reason: Itching Last Admin: 05/22/17 21:56 Dose: 25 mg Enoxaparin Sodium (Lovenox) 30 mg SC 0900 [facility] Last Admin: 05/22/17 09:43 Dose: 30 mg Famotidine (Pepcid) 20 mg PO Q24HR [facility] Last Admin: 05/22/17 21:56 Dose: 20 mg Ferrous Sulfate (Feosol) 325 mg PO BID [facility] Last Admin: 05/22/17 21:07 Dose: 325 mg Furosemide (Lasix) 20 mg PO DAILY [facility] Furosemide (Lasix) 20 mg PO NOW [facility] Stop: 05/23/17 12:00 Glucagon (Glucagon) 1 mg IM PRN PRN PRN Reason: HYPOGLYCEMIA PROTOCOL Dextrose/Water (D5w) 1,000 mls @ 0 mls/hr IV INF PRN; As Directed PRN Reason: HYPOGLYCEMIA PROTOCOL Insulin Human Lispro (Humalog) 0 units SC .MILD SLIDING SCALE PRN; Protocol PRN Reason: MILD SLIDING SCALE Last Admin: 05/22/17 17:15 Dose: 3 unit Insulin Human Lispro (Humalog) 0 units SC .BEDTIME SLIDING SC PRN; Protocol PRN Reason: BEDTIME SLIDING SCALE Last Admin: 05/22/17 21:24 Dose: 2 unit Levothyroxine Sodium (Synthroid) 125 mcg PO 0600 [facility] Multivitamins (Theragran) 1 tab PO BID [facility] Last Admin: 05/22/17 21:08 Dose: 1 tab Multivitamins/Zinc (Stress 600 With Zinc) 1 tab PO DAILY [facility] Last Admin: 05/22/17 09:52 Dose: 1 tab Ondansetron HCl (Zofran Odt) 4 mg PO Q6H PRN PRN Reason: Nausea/Vomiting Ondansetron HCl (Zofran) 4 mg IVP Q6H PRN PRN Reason: Nausea/Vomiting Potassium Chloride (K-Dur) 20 meq PO BID-[facility] Last Admin: 05/22/17 16:36 Dose: 20 meq Rosuvastatin Calcium (Crestor) 10 mg PO HS [facility] Last Admin: 05/22/17 21:08 Dose: 10 mg Senna/Docusate Sodium (Senokot S) 1 tab PO BID [facility] Last Admin: 05/22/17 21:58 Dose: Not Given Sodium Chloride (Flush - Normal Saline) 10 ml IVF Q12HR [facility] Last Admin: 05/22/17 21:58 Dose: 10 ml Sodium Chloride (Flush - Normal Saline) 10 ml IVF PRN PRN PRN Reason: Saline Flush Last Admin: 05/21/17 15:04 Dose: 10 ml Spironolactone (Aldactone) 12.5 mg PO DAILY [facility] Tamsulosin HCl (Flomax) 0.[address] [facility] Last Admin: 05/22/17 21:08 Dose: 0.4 mg
[2017-05-23] MEDS: Alogliptin Benzoate 6.25 MG TABLET PO SCH (21:46)
[2017-05-23] MEDS: Tamsulosin HCl 0.4 MG CAP PO SCH (21:47)
[2017-05-23] MEDS: Famotidine 20 MG TAB PO SCH (21:50)
[2017-05-23] MEDS: HYDROcodone/Acetaminophen 5/325 mg Tablet PO PRN (22:08)
[2017-05-24] MEDS: Levothyroxine Sodium 125 MCG TAB PO SCH (05:40)
[2017-05-24 06:26] LABS: #Eosinphils 0.1 thou/uL (0.0-0.7); #Lymphocytes 1.5 thou/uL (1.20-3.40); #Monocytes 0.5 thou/uL (0.11-0.59); #Neutrophils 2.9 thou/uL (1.40-6.50); %Basophils 0.6 % (0.0-1.0); %Eosinophils 1.7 % (0.0-10.0); %Lymphocytes 29.4 % (21.0-51.0); %Monocytes 9.2 % (0.0-10.0); Hematocrit 33.5 % (42.0-52.0); Mean Platelet Volume 6.2 fL (7.4-10.4); Red Blood Cell (RBC) Count 3.53 mill/uL (4.70-6.10); White Blood Cell (WBC) Count 4.9 thou/uL (4.8-10.8)
[2017-05-24 06:53] LABS: ALT (SGPT) 25 U/L (8-55); AST (SGOT) 22 U/L (5-34); Alkaline Phosphatase 54 U/L (40-150); Anion Gap 12 mmol/L (10-20); BUN (Urea Nitrogen) 19 mg/dL (8.4-25.7); Bilirubin, Total 0.4 mg/dL (0.2-1.2); Calc. Creatinine Clearance 40 mL/min (70-130); Calcium 9.6 mg/dL (7.8-10.44); Carbon Dioxide 25 mmol/L (23-31); Chloride 102 mmol/L (98-107); Estimated GFR-MDRD 46; Iron 51 ug/dL (65-175); Protein, Total 6.5 g/dL (5.8-8.1)
--- NOTE | 2017-05-24 09:02 | PQF ---
CLINICAL DOCUMENTATION IMPROVEMENT CLARIFICATION FORM: ICD-10 Updated PLEASE DO AN ADDENDUM TO THE PROGRESS NOTE WITH ANY DOCUMENTATION UPDATES OR ADDITIONS AND CARRY THROUGH TO DC SUMMARY. THANK YOU. DATE: 05/24 ATTN: DR. CANDI NEFF Please exercise your independent, professional judgment in responding to the clarification form. Clinical indicators are provided on the bottom of this form for your review Please check appropriate box(s): [ ] Acute Renal Failure (ARF) / Acute Kidney Injury (CLAIRE) (Please specify associated condition, if applicable) [ ] Other Etiology or underlying conditions related to the diagnosis of ARF/ CLAIRE: [ ] Acute on Chronic Renal Failure please specify Stage of CKD (see below) [ ] CKD without ARF/CLAIRE please specify Stage of CKD [ ] Other diagnosis [ ] Unable to determine National Kidney Foundation Guidelines for CKD Staging Stage I Kidney damage with normal or increased GFR GFR > 90 Stage II Kidney damage with mildly decreased GFR GFR 60-89 Stage III Kidney damage with moderately decreased GFR GFR 30-59 Stage IV Kidney damage with severely decreased GFR GFR 16-29 Stage V Kidney failure GFR<15 ESRD End Stage Renal Disease On dialysis For continuity of documentation, please document condition throughout progress notes and discharge summary. Thank You. CLINICAL INDICATORS - SIGNS / SYMPTOMS / LABS ER PHYSICIAN DIAGNOSIS DOCUMENTATION 05/20: ACUTE KIDNEY INJURY BUN: 24 CR: 1.65 GFR: 40 (ADMIT, 05/20) 14 1.42 48 (05/21) 21 1.50 45 (05/22) 22 1.54 43 (05/23) 19 1.48 46 (05/24) RISK FACTORS: DAILY LASIX (HOME MED) IV LASIX (05/31 - ) ACUTE ON CHRONIC SYSTOLIC HF TREATMENTS: TELEMETRY MONITORING CARDIOLOGY CONSULT THANK YOU! Jenny (This form is maintained as a part of the permanent medical record) 2014 [employer]. All Rights Reserved Jenny Plaza RN, BSN [email or web address] Office: [phone] Thank you MOHAMUD
[2017-05-24] MEDS ORDERED: CEFAZOLIN 1 GM VIAL ONE (13:33)
[2017-05-24] MEDS ORDERED: Gentamicin 80 MG/2 ML VIAL ONE (13:33)
[2017-05-24] MEDS ORDERED: CEFAZOLIN/Water 2 GM/20 ML SYRINGE ONE (13:34)
[2017-05-24] MEDS ORDERED: Fentanyl 100 MCG/2 ML VIAL ONE (13:44)
[2017-05-24] MEDS ORDERED: Midazolam HCl 2 mg/2 ml Vial ONE ×2 (13:45→14:18)
--- NOTE | 2017-05-24 14:58 | OP ---
DATE OF PROCEDURE: 05/24/2017 PROCEDURE: Dual chamber resynchronization defibrillator generator change. CLINICAL INDICATION: ICD at MARQUES. CERTIFIED MEDICAL CODING SPECIALIST: Boy Latif M.D. ASA CLASSIFICATION: 3. ANESTHESIA: Versed 3 mg, fentanyl 75 mcg. ADDITIONAL CARDIAC MEDICATIONS: None. ESTIMATED BLOOD LOSS: None. ACUTE COMPLICATIONS: None. TOTAL FLUOROSCOPY TIME: Less than 0.1 minute. METHODS: After informed consent was obtained, the patient was brought to the EP lab in a fasting sta te. The shoulder area was prepped and draped in the usual, sterile fashion. Using a #15 blade, the patient's previous scar was incised and removed. Bovie electrocautery was used to dissect the tissue down to the device pocket. The device was removed and leads were inspected. The device was disconn ected from the leads and some dissection was performed to free up leads. The leads were tested for s ensing and pacing functions. Upon confirmation of adequate function, the leads were connected to the new device which was inserted into the pocket after copious irrigation of the pocket. Ventricular f ibrillation was induced and the device was allowed to detect and defibrillate the arrhythmia. The po cket incision was closed with simple, running layers of 2-0 and 4-0 vicryl suture. The skin was clos ed with subcuticular 5-0 monocryl suture. Dermabond was applied to the incision. The patient was al lowed to withdrawal from sedation and left the EP lab in a stable condition. RESULTS: 1. Pacing lead thresholds: Atrial threshold 1 volt, impedance 589 ohms. RV threshold 1.25 volts, i mpedance 399 ohms. LV threshold 1.25 volts, impedance 722 ohms. 2. Signal analysis: P-wave amplitude 3 millivolts. R-wave amplitude 3.3 millivolts. This is uncha nged and tested adequately with DFT last time. 3. Serial numbers device was a [employer]ipboard model Viva XT CRTD, serial number is [id number]. IMPRESSION: Successful dual chamber resynchronization defibrillator generator change. RECOMMENDATION: Antibiotic prophylaxis.
[2017-05-24] MEDS ORDERED: Acetaminophen 325 MG TAB PO PRN (15:21)
[2017-05-24] MEDS ORDERED: Silver Sulfadiazine 1% Cream 50 GM JAR TOP PRN (15:21)
[2017-05-24] MEDS ORDERED: Mag-Al 1200 mg/1200 mg/30 ML UDCUP PO PRN ×2 (15:21→19:13)
[2017-05-24] MEDS ORDERED: Bisacodyl 10 MG SUPP PR PRN (15:21)
[2017-05-24] MEDS ORDERED: Ondansetron HCl/PF 4 MG/2 ML Vial IVP PRN (15:21)
[2017-05-24] MEDS ORDERED: Temazepam 15 MG CAP PO PRN (15:21)
[2017-05-24] MEDS ORDERED: Nitroglycerin 0.4 MG TAB (25 Tab Bottle) SL PRN (15:21)
[2017-05-24] MEDS ORDERED: Bisacodyl 5 MG TAB PO PRN (15:21)
[2017-05-24] MEDS ORDERED: diphenhydrAMINE 25 MG CAP PO PRN (15:21)
[2017-05-24] MEDS: Ferrous Sulfate 325 MG TAB PO SCH (16:11)
[2017-05-24] MEDS: traMADol HCl 50 MG TAB PO PRN ×2 (16:11→19:59)
[2017-05-24] MEDS: Digoxin 0.125 MG TAB PO SCH (16:12)
[2017-05-24] MEDS: Furosemide 40 MG TAB PO SCH (16:12)
[2017-05-24] MEDS: Clopidogrel Bisulfate 75 MG TAB PO SCH (16:12)
[2017-05-24] MEDS: Potassium Chloride 20 MEQ TAB PO SCH ×2 (16:12→17:56)
[2017-05-24] MEDS: Spironolactone 25 MG TAB PO SCH (16:13)
[2017-05-24] MEDS: Multivit, Therapeutic 1 TAB PO SCH ×2 (16:13→20:08)
[2017-05-24] MEDS: Senokot S 8.6-50 MG TAB PO SCH ×3 (16:13→21:48)
[2017-05-24] MEDS: Carvedilol 3.125 MG TAB PO SCH ×2 (16:13→20:08)
[2017-05-24] MEDS: Enoxaparin Sodium 30 MG/0.3 ML SYRINGE SC SCH (16:14)
[2017-05-24] MEDS: Stress 600 With Zinc 1 TAB PO SCH (17:52)
[2017-05-24] MEDS: HYDROcodone/Acetaminophen 5/325 mg Tablet PO PRN ×2 (17:52→22:48)
[2017-05-24] MEDS: Calcium Carbonate 600 MG TAB PO SCH (17:53)
--- NOTE | 2017-05-24 18:05 | RAD ---
EXAM: ONE VIEW CHEST 05/24/17 HISTORY: Status post cardiac device placement. COMPARISON: 05/20/17. FINDINGS: Left sided transvenous defibrillator appears to have lead position over the right atrium, right ventr icle, and coronary sinus. Pneumothorax is not appreciated. Chronic changes of the lung parenchyma are noted. Atherosclerosis of the aorta is identified. Stable cardiac silhouette. IMPRESSION: Left sided transvenous defibrillator as detailed above. No pneumothorax. POS: [facility]
--- NOTE | 2017-05-24 18:25 | PRG ---
DATE OF SERVICE: 05/24/2017 SUBJECTIVE: Mr. Ramsay is doing better. He underwent replacement of his defibrillator generator today . Feels somewhat better already. PHYSICAL EXAMINATION: VITAL SIGNS: Blood pressure 128/62, pulse 70 and regular. LUNGS: Clear. CARDIAC: Normal S1, normal S2. ABDOMEN: Soft, nontender. EXTREMITIES: There is no edema. ASSESSMENT: 1. Congestive heart failure, systolic, chronic. 2. Status post defibrillator generator change. 3. Iron deficiency anemia. Check iron levels. The ferritin level is low despite oral iron and ferr itin level is 23.6, iron level 51. PLAN: 1. Give intravenous iron. 2. He will be ready to go home tomorrow.
[2017-05-24] MEDS ORDERED: Calcium Carbonate 500 MG ChewTAB PO PRN (19:13)
[2017-05-24] MEDS: Famotidine 20 MG TAB PO SCH (20:08)
[2017-05-24] MEDS: Tamsulosin HCl 0.4 MG CAP PO SCH (20:08)
[2017-05-24] MEDS: Alogliptin Benzoate 6.25 MG TABLET PO SCH (20:13)
[2017-05-24] MEDS: HumaLOG 300 UNITS/3 ML VIAL SC PRN (20:13)
[2017-05-24] MEDS: ALPRAZolam 0.5 MG TAB PO PRN (20:13)
--- NOTE | 2017-05-24 21:26 | PDOC.PN ---
- Subjective Encounter Start Date: 05/24/17 Encounter Start Time: 18:00 Patient seen and examined. No new complaints. No overnight events. s/p AICD generator change. - Objective MAR Reviewed: Yes Vital Signs & Weight: Vital Signs (12 hours) Temp Pulse Pulse Pulse Resp BP BP 05/24/17 20:07 97.8 F 78 18 05/24/17 16:12 70 05/24/17 15:00 97.6 F 69 16 05/24/17 12:00 97.9 F 84 18 05/24/17 10:53 74 88 127/59 L 78/50 L BP BP BP Pulse Ox 05/24/17 20:07 118/56 L 99 05/24/17 16:12 05/24/17 15:00 128/62 96 05/24/17 12:00 130/60 100 05/24/17 10:53 109/58 L Weight Admit Weight 161 lb 12.8 oz Weight 161 lb 3.2 oz I&O: 05/23/17 05/24/17 05/25/17 06:59 06:59 06:59 Intake Total 740 1360 Output Total 1075 1700 Balance -335 -340 Result Diagrams: 05/24/17 06:04 05/24/17 06:04 Additional Labs: Accuchecks 05/24/17 05/24/17 05/24/17 20:05 16:50 11:39 POC Glucose 390 H 171 H 187 H 05/24/17 05/23/17 05/23/17 05:59 21:46 19:53 POC Glucose 194 H 168 H 203 H 05/23/17 17:57 POC Glucose 211 H EKG Reviewed by me: Yes (Tele SR) Phys Exam - Physical Examination Constitutional: NAD Respiratory: no wheezing, no rhonchi Cardiovascular: RRR, no rub Gastrointestinal: soft, non-tender, positive bowel sounds Musculoskeletal: no edema Neurological: moves all 4 limbs Psychiatric: A&O x 3 Dx/Plan - Plan DVT proph w/SCDs IMPRESSION: 1. Acute on Chronic Systolic HF exacerbation - improving 2. Orthostatic hypotension 3. Hypothyroidism - TSH/free T3 abn 4. CAD 5. AICD - MARQUES 6. DM2/HTN/Recent ankle fracture/Par-afib - not anticoag candidate/CKD 3 PLAN: * s/p AICD change in AM * Cardiology/EP following * Thyroid meds adjusted * Cont gentle diuresis * Ortho input appreciated * Change Potassium chloride to daily Review of Systems - Review of Systems Respiratory: negative: Cough, Dry, Shortness of Breath, Hemoptysis, SOB with Excertion, Pleuritic Pain, Sputum, Wheezing Cardiovascular: negative: Chest Pain, Palpitations, Orthopnea, Paroxysmal Noc. Dyspnea, Edema, Light Headedness - Medications/Allergies Allergies/Adverse Reactions: Allergies Allergy/AdvReac Type Severity Reaction Status Date / Time codeine [Codeine] Allergy Mild Verified 08/25/16 12:45 Medications: Current Medications Acetaminophen (Tylenol) 650 mg PO Q4H PRN PRN Reason: Mild Pain 1-3 Last Admin: 05/24/17 19:59 Dose: 650 mg Hydrocodone Bitart/Acetaminophen (Lithia 5/325) 1 tab PO Q4H PRN PRN Reason: Headache, Pain Last Admin: 05/24/17 17:52 Dose: 1 tab Al Hydroxide/Mg Hydroxide (Maalox) 15 ml PO Q4H PRN PRN Reason: Heartburn or Indigestion Al Hydroxide/Mg Hydroxide (Maalox) 30 ml PO Q6H PRN PRN Reason: Heartburn or Indigestion Last Admin: 05/24/17 19:59 Dose: 30 ml Alogliptin Benzoate (Alogliptin) 12.5 mg PO [facility] Last Admin: 05/24/17 20:13 Dose: 12.5 mg Alprazolam (Xanax) 0.5 mg PO TID PRN PRN Reason: Anxiety Last Admin: 05/24/17 20:13 Dose: 0.5 mg Amiodarone HCl (Cordarone) 200 mg PO DAILY [facility] Last Admin: 05/24/17 16:12 Dose: 200 mg Bisacodyl (Dulcolax) 5 mg PO DAILYPRN PRN PRN Reason: CONSTIAPT Bisacodyl (Dulcolax) 10 mg SC DAILYPRN PRN PRN Reason: Constipation Calcium Carbonate (Caltrate) 600 mg PO DAILY [facility] Last Admin: 05/24/17 17:53 Dose: 600 mg Calcium Carbonate (Tums) 1,000 mg PO Q4H PRN PRN Reason: Heartburn or Indigestion Carvedilol (Coreg) 3.125 mg PO BID [facility] Last Admin: 05/24/17 20:08 Dose: 3.125 mg Cephalexin (Keflex) 250 mg PO QID [facility] Cholecalciferol (Vitamin D3) 1,000 units PO DAILY [facility] Last Admin: 05/24/17 16:13 Dose: 1,000 units Clopidogrel Bisulfate (Plavix) 75 mg PO DAILY [facility] Last Admin: 05/24/17 16:12 Dose: 75 mg Dextrose/Water (Dextrose 50%) 25 gm IVP PRN PRN PRN Reason: HYPOGLYCEMIA PROTOCOL Digoxin (Lanoxin) 0.125 mg PO DAILY [facility] Last Admin: 05/24/17 16:12 Dose: 0.125 mg Diphenhydramine HCl (Benadryl) 25 mg PO Q6H PRN PRN Reason: Itching Famotidine (Pepcid) 20 mg PO Q24HR [facility] Last Admin: 05/24/17 20:08 Dose: 20 mg Furosemide (Lasix) 20 mg PO DAILY [facility] Last Admin: 05/24/17 16:12 Dose: 20 mg Glucagon (Glucagon) 1 mg IM PRN PRN PRN Reason: HYPOGLYCEMIA PROTOCOL Dextrose/Water (D5w) 1,000 mls @ 0 mls/hr IV INF PRN; As Directed PRN Reason: HYPOGLYCEMIA PROTOCOL Iron Dextran 500 mg/ Sodium (Chloride) 250 mls @ 80 mls/hr IVPB 0800 [facility] Stop: 05/25/17 10:00 Insulin Human Lispro (Humalog) 0 units SC .MILD SLIDING SCALE PRN; Protocol PRN Reason: MILD SLIDING SCALE Last Admin: 05/22/17 17:15 Dose: 3 unit Insulin Human Lispro (Humalog) 0 units SC .BEDTIME SLIDING SC PRN; Protocol PRN Reason: BEDTIME SLIDING SCALE Last Admin: 05/24/17 20:13 Dose: 5 unit Levothyroxine Sodium (Synthroid) 125 mcg PO 0600 [facility] Last Admin: 05/24/17 05:40 Dose: 125 mcg Multivitamins (Theragran) 1 tab PO BID [facility] Last Admin: 05/24/17 20:08 Dose: 1 tab Multivitamins/Zinc (Stress 600 With Zinc) 1 tab PO DAILY [facility] Last Admin: 05/24/17 17:52 Dose: 1 tab Nitroglycerin (Nitrostat) 0.4 mg SL Q5MIN PRN PRN Reason: Chest Pain Ondansetron HCl (Zofran Odt) 4 mg PO Q6H PRN PRN Reason: Nausea/Vomiting Ondansetron HCl (Zofran) 4 mg IVP Q6H PRN PRN Reason: Nausea/Vomiting Potassium Chloride (K-Dur) 20 meq PO QAM-WM [facility] Rosuvastatin Calcium (Crestor) 10 mg PO HS [facility] Last Admin: 05/24/17 20:08 Dose: 10 mg Senna/Docusate Sodium (Senokot S) 1 tab PO BID [facility] Last Admin: 05/24/17 16:13 Dose: 1 tab Silver Sulfadiazine (Silvadene) 0 gm TOP Q12H PRN PRN Reason: Rash/Topical Irritation Sodium Chloride (Flush - Normal Saline) 10 ml IVF Q12HR [facility] Last Admin: 05/24/17 20:09 Dose: 10 ml Sodium Chloride (Flush - Normal Saline) 10 ml IVF PRN PRN PRN Reason: Saline Flush Last Admin: 05/21/17 15:04 Dose: 10 ml Spironolactone (Aldactone) 12.5 mg PO DAILY [facility] Last Admin: 05/24/17 16:13 Dose: 12.5 mg Tamsulosin HCl (Flomax) 0.4 mg PO HS [facility] Last Admin: 05/24/17 20:08 Dose: 0.4 mg Temazepam (Restoril) 15 mg PO HSPRN PRN PRN Reason: Insomnia Tramadol HCl (Ultram) 50 mg PO Q4H PRN PRN Reason: FOR MODERATE PAIN 4-6 Last Admin: 05/24/17 19:59 Dose: 50 mg
[2017-05-25] MEDS: traMADol HCl 50 MG TAB PO PRN (02:06)
[2017-05-25] MEDS: HYDROcodone/Acetaminophen 5/325 mg Tablet PO PRN ×2 (05:07→12:27)
[2017-05-25] MEDS: Levothyroxine Sodium 125 MCG TAB PO SCH (05:07)
[2017-05-25] MEDS ORDERED: Iron Dextran 500 MG in Sodium Chloride 0.9% 250 ML IVPB SCH (08:00)
[2017-05-25] MEDS ORDERED: Potassium Chloride 20 MEQ TAB PO SCH (08:00)
--- NOTE | 2017-05-25 08:37 | RAD ---
AP VIEW OF CHEST: Date: 05/25/17 INDICATION: Status post transverse cardiac device placement. COMPARISON: Prior exam dated 05/24/17 at 1553 hours. FINDINGS: The multilead AICD is unchanged in position. No pneumothorax is demonstrated. Chronic lung changes co nsistent with some mild fibrotic change is similar appearing. No air space consolidation, pleural eff usion, or pneumothorax is evident. Vascular calcifications of the aortic arch are stable. Pulmonary v asculature are within normal limits. No acute osseous abnormality is evident. IMPRESSION: 1. Stable left subclavian AICD. 2. No pneumothorax. POS: [facility]
--- NOTE | 2017-05-25 08:49 | PRG ---
DATE OF SERVICE: 05/25/2017 SUBJECTIVE: Mr. Ramsay is doing better today. He feels better after his defibrillator was changed. N o chest pain or palpitations. OBJECTIVE: VITAL SIGNS: Blood pressure 135/64, pulse 74, regular. LUNGS: Clear. CARDIAC: Normal S1, S2. ASSESSMENT: 1. Status post defibrillator change. I suspect he is only pacing right ventricular pacing, not gett ing biventricular pacing and he feels better now. 2. History of severe orthostatic hypotension. 3. Status post transcutaneous aortic valve replacement, percutaneous. 4. Iron deficiency anemia with low ferritin. Plan is to receive intravenous iron. 5. Thyroid dose was increased in view of hypothyroidism. 6. Amiodarone was decreased to 200 mg a day. PLAN: 1. To go home on amiodarone 200 mg a day. 2. Plavix 75 mg a day. 3. Digoxin 0.125 mg a day. 4. Iron 325 mg once a day, Lasix 20 mg daily, spironolactone 12.5 mg a day, potassium 20 mEq q.a.m. 5. Keflex. He cannot tolerate Coreg or ANTONY inhibitors this time due to orthostatic hypotension. 6. He is going to stay off aspirin at this point.
[2017-05-25] MEDS: Cephalexin 250 MG CAP PO SCH ×2 (09:12→12:08)
[2017-05-25] MEDS: Spironolactone 25 MG TAB PO SCH (09:12)
[2017-05-25] MEDS: Clopidogrel Bisulfate 75 MG TAB PO SCH (09:12)
[2017-05-25] MEDS: Multivit, Therapeutic 1 TAB PO SCH (09:13)
[2017-05-25] MEDS: Calcium Carbonate 600 MG TAB PO SCH (09:13)
[2017-05-25] MEDS: Senokot S 8.6-50 MG TAB PO SCH (09:13)
[2017-05-25] MEDS: Furosemide 40 MG TAB PO SCH (09:13)
[2017-05-25] MEDS: Digoxin 0.125 MG TAB PO SCH (09:13)
[2017-05-25] MEDS: Stress 600 With Zinc 1 TAB PO SCH (10:23)
[2017-05-25] MEDS: HumaLOG 300 UNITS/3 ML VIAL SC PRN (12:08)
[2017-05-25 12:14] VITALS: TEMP 97.3
--- NOTE | 2017-05-25 12:52 | DIS ---
DISCHARGE DISPOSITION: Home. FOLLOWUP: Follow up with Dr. Moise Estrada in 1 week. Follow up with Dr. Stanley as scheduled. Base met in 1 week is recommended. Primary care physician is advised to follow. ALLERGIES: The patient is allergic to CODEINE. The patient was seen and examined on the day of discharge. Denies any new complaints. No chest pain , shortness of breath, palpitations. Fall precaution with 24-hour supervision was recommended. DISCHARGE MEDICATIONS: 1. Amiodarone 200 mg daily (dose reduced). 2. Lasix 20 mg daily (dose reduced). 3. Potassium chloride 20 mEq daily. 4. Aldactone 12.5 mg daily. 5. Levothyroxine 125 mcg. Other home medications were resumed includin. Xanax as needed. 2. Calcium carbonate 600 mg daily. 3. Vitamin D3 1000 units daily. 4. Digoxin 0.125 mg daily. 5. Benadryl as needed. 6. Ferrous sulfate 325 mg b.i.d. 7. Levothyroxine 100 mcg daily. 9. Multivitamin 1 tablet b.i.d. 10. Crestor 10 mg at bedtime. 11. Januvia 50 mg at bedtime. 12. Flomax 0.4 mg at bedtime. 13. Vitamin B complex 1 tablet daily. 14. For prophylaxis after the AICD he was started on Keflex 250 mg b.i.d. for the next week. INPATIENT CONSULTANTS: 1. Cardiology, Dr. Stanley. 2. Orthopedic, Dr. Beal. BRIEF HOSPITAL COURSE: The patient is an 82-year-old male who was discharged from this facility in [facility] after syncope causing fall and ankle fracture who presented to the emergency room with general ized weakness, fatigue, and shortness of breath on exertion. Please refer to the history and physica l dated 05/20/[address] Amos Heath for further details. The patient was admitted to the hospital with the diagnosis of acute on chronic systolic heart failur e exacerbation. The patient was seen by Cardiology, Dr. Stanley. Due to AICD at end of life he under went elective replacement on 05/2017. His medications have been optimized by Dr. Stanley due to hi story of orthostatic hypotension. The patient has been cleared by Cardiology for discharge. His blood pressure on the day of discharge is 119/60. He also received IV Venofer per Cardiology rec ommendation. No beta blockers or ANTONY inhibitor due to orthostatic hypotension. He has been cleared by Cardiology for discharge. He was extensively counseled on heart failure. FINAL DIAGNOSES: 1. Acute on chronic systolic heart failure exacerbation. 2. Status post defibrillator change. 3. Severe orthostatic hypotension causing fall and ankle fracture in March. 4. History of transcutaneous aortic valve replacement. 5. Iron deficiency anemia. 6. Hypothyroidism. Levothyroxine dose has been increased to 125 mcg. Primary care physician is adv ised to follow. 7. Diabetes mellitus type 2. 8. Hypertension. 9. Recent ankle fracture. Patient will follow up with orthopedic as scheduled. 10. Paroxysmal atrial fibrillation, not an anticoagulation candidate due to history of falls. 11. Chronic kidney disease stage 3. Plan of care was discussed with the patient in detail. He stated understanding. Total time coordinating the discharge of this patient was 33 minutes.
[2017-05-25 15:38] VITALS: BP 119/59
[2017-05-26] MEDS ORDERED: Ferrous Sulfate 325 MG TAB PO SCH (08:00)
== END 2017-05-25 15:55 | disposition home or self-care (01) | DRG 245 ==
LOC: ERS 14:18 → 2NO 17:19 → OBSVTOIN 05-21 09:38
PROVIDERS: ADMIT Emergency Medicine; ATTEND Emergency Medicine
PROC: 0JPT0PZ Removal of Cardiac Rhythm Related Device from Trunk Subcutaneous Tissue and Fascia, Open Approach (ICD-10-PCS; principal; 2017-05-24)
PROC: 0JH609Z Insertion of Cardiac Resynchronization Defibrillator Pulse Generator into Chest Subcutaneous Tissue and Fascia, Open Approach (ICD-10-PCS; 2017-05-24)
DX: I13.0 Hypertensive heart and chronic kidney disease with heart failure and stage 1 through stage 4 chronic kidney disease, or unspecified chronic kidney disease (principal); E11.22 Type 2 diabetes mellitus with diabetic chronic kidney disease; I48.0 Paroxysmal atrial fibrillation; I50.23 Acute on chronic systolic (congestive) heart failure; I25.5 Ischemic cardiomyopathy; N18.3 Chronic kidney disease, stage 3 (moderate); D50.9 Iron deficiency anemia, unspecified; E03.9 Hypothyroidism, unspecified; S82.891D Other fracture of right lower leg, subsequent encounter for closed fracture with routine healing; W19.XXXD Unspecified fall, subsequent encounter; E87.6 Hypokalemia; Z95.2 Presence of prosthetic heart valve; K59.00 Constipation, unspecified; I95.1 Orthostatic hypotension; N40.1 Benign prostatic hyperplasia with lower urinary tract symptoms; R39.14 Feeling of incomplete bladder emptying
CPT/HCPCS: 33264; 36415; 36416; 71010; 80048; 80053; 81003; 82274; 82553; 82728; 83540; 83550; 83690; 83735; 83880; 84439; 84443; 84481; 84484; 85007; 85025; 85027; 93005; 93798; 94760; 99152; 99153; A4216; C1882; G8978-GP-CJ; G8979-GP-CI; G8987-GO-CJ; G8988-GO-CH; J0690; J1580; J1650; J1750; J1940; J2250; J3010; J7050

== ENCOUNTER 2019-07-19 05:46 | Outpatient (CLI) | payer MEDICARE, OTHER ==
[2019-07-19 13:45] LABS: Hemoglobin 10.8 g/dL (14.0-18.0); Mean Corpuscular HGB CONC 30.8 g/dL (32.0-36.0); Mean Corpuscular Hemoglobin 28.4 pg (27.0-31.0); Mean Corpuscular Volume 92.3 fL (78.0-98.0); Mean Platelet Volume 7.9 fL (7.4-10.4); Platelet Count 216 thou/uL (130-400); Red Blood Cell (RBC) Count 3.79 mill/uL (4.70-6.10); White Blood Cell (WBC) Count 7.6 thou/uL (4.8-10.8)
[2019-07-19 13:53] LABS: INR-International Normal Ratio 1.1; PTT 36.1 SEC (22.9-36.1); Prothrombin Time 14.5 SEC (12.0-14.7)
[2019-07-19 14:05] LABS: Anion Gap 15 mmol/L (10-20); BUN (Urea Nitrogen) 32 mg/dL (8.4-25.7); Calc. Creatinine Clearance 0 mL/min (70-130); Calcium 9.9 mg/dL (7.8-10.44); Carbon Dioxide 31 mmol/L (23-31); Chloride 100 mmol/L (98-107); Estimated GFR-MDRD 38; Glucose 225 mg/dL (83-110); Potassium 3.6 mmol/L (3.5-5.1); Sodium 142 mmol/L (136-145)
== END 2019-07-19 05:47 | disposition home or self-care (01) ==
LOC: LABBT 05:46
PROVIDERS: ATTEND Internal Medicine Cardiovascular Disease
DX: Z01.818 Encounter for other preprocedural examination (principal); I48.91 Unspecified atrial fibrillation
CPT/HCPCS: 80048; 85027; 85610; 85730; 93005; 93010

== ENCOUNTER 2019-07-20 08:36 | Day surgery (SDC) | payer MEDICARE, OTHER ==
[2019-07-19 11:41] VITALS: BMI 28.4
[2019-07-20] MEDS ORDERED: PROPOFOL 20 ML ONE (10:09)
[2019-07-20] MEDS ORDERED: Lidocaine 1% PF 5 ML VIAL ONE (10:24)
[2019-07-20] MEDS ORDERED: PROPOFOL 200 MG/20 ML VIAL ONE (10:24)
--- NOTE | 2019-07-20 12:12 | OP ---
DATE OF PROCEDURE: 07/20/2019 PROCEDURE PERFORMED: Internal electrical cardioversion. REASON FOR PROCEDURE: Mr. Ramsay is an 84-year-old gentleman with history of ischemic cardiomyopathy, ICD in place, paroxysmal atrial fibrillation, usually in sinus rhythm, but recently has been in atrial fibrillation. He is here for a planned cardioversion. DESCRIPTION OF PROCEDURE: The patient received propofol by anesthesia specialist. After adequate level of sedation achieved, the burst atrial overdrive pacing was attempted, which converted the sustained atrial flutter into fibrillation, but the arrhythmia did not terminate. At this point, a synchronized cardioversion was performed via the device at 35 joules. That promptly converted the patient back to sinus rhythm. CONCLUSION: 1. Successful internal cardioversion. 2. Adequate biventricular implantable cardiac defibrillator function. PLAN: Continue monitoring for recurrent arrhythmia. Consider antiarrhythmic agents, which could include sotalol or dose-adjusted different type versus amiodarone if frequent symptomatic recurrences are seen. Job ID: [id number]
== END 2019-07-20 12:25 | disposition home or self-care (01) ==
LOC: CCL 08:36
PROVIDERS: ATTEND Internal Medicine Cardiovascular Disease
PROC: 5A2204Z Restoration of Cardiac Rhythm, Single (ICD-10-PCS; principal; 2019-07-20)
DX: I48.0 Paroxysmal atrial fibrillation (principal); I25.5 Ischemic cardiomyopathy; I11.0 Hypertensive heart disease with heart failure; I50.22 Chronic systolic (congestive) heart failure; E11.9 Type 2 diabetes mellitus without complications; N40.0 Benign prostatic hyperplasia without lower urinary tract symptoms; M15.0 Primary generalized (osteo)arthritis; I25.2 Old myocardial infarction; I25.10 Atherosclerotic heart disease of native coronary artery without angina pectoris; Z86.73 Personal history of transient ischemic attack (TIA), and cerebral infarction without residual deficits; Z79.4 Long term (current) use of insulin; Z79.82 Long term (current) use of aspirin; Z79.01 Long term (current) use of anticoagulants; Z79.899 Other long term (current) drug therapy; Z88.5 Allergy status to narcotic agent; Z95.810 Presence of automatic (implantable) cardiac defibrillator
CPT/HCPCS: 36416; 92960; J2001; J2704